=== PATIENT | male | born 1945 | race Caucasian/White ===

== ENCOUNTER 2019-01-24 06:11 | Inpatient (IN) ==
[2019-01-24] MEDS ORDERED: ASPIRIN 81 MG TAB.CHEW CHEWED ONE (06:34)
[2019-01-24] MEDS ORDERED: 0.9 % SODIUM CHLORIDE 500 ML IV ONE (06:34)
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
[2019-01-24 07:52] LABS: Basophils # (Auto) 0 K/mcL (0.0-0.3); Basophils % (Auto) 0.5 % (0.0-2.0); Eosinophils # (Auto) 0.7 K/mcL (0.0-0.7); Eosinophils % (Auto) 9.4 % (0.0-7.0); Granulocytes % (Auto) 66.3 % (38.0-78.0); Hematocrit 25.6 % (41.0-55.0); Hemoglobin 8.5 g/dL (13.5-16.5); Lymphocytes # (Auto) 0.9 K/mcL (1.5-4.8); Lymphocytes % (Auto) 11.5 % (15.5-49.0); Mean Cell Volume 86.1 fL (80.0-100.0); Mean Corpuscular HGB Conc 33.2 g/dL (31.0-36.0); Mean Platelet Volume 8.3 fL (7.4-10.4); Monocytes # (Auto) 0.9 K/mcL (0.1-0.9); Monocytes % (Auto) 12.3 % (1.0-12.0); Platelet Count 206 K/mcL (140-440); RBC 2.98 M/mcL (4.50-5.90); Red Cell Distribution Width 16.5 % (11.5-14.5); WBC 7.4 K/mcL (4.5-11.0)
--- NOTE | 2019-01-24 08:06 | Cat Scan Report ---
CLINICAL INFORMATION: Dizziness. Presyncope COMPARISON: None. TECHNIQUE: 2.5 mm helical slices were obtained in the skull base to vertex. Following reconstruction, axial reformatted images were reviewed at bone and parenchymal windows. The exam was performed using radiation dose optimization techniques including, but not limited to, automated exposure control, adjustment of the mA and/or kV according to patient size and use of iterative reconstruction technique. FINDINGS: The ventricles, sulci, fissures, and cisterns are symmetrically enlarged compatible with mild age-related atrophy.. No extra-axial fluid collections are identified. Mild patchy chronic ischemic changes noted in the frontal white matter with a few remote lacunar infarcts in the left basal ganglia. There is no evidence of hemorrhage, mass effect, or edema. Bone windows show no osseous abnormality. IMPRESSION: Mild atrophy and patchy chronic ischemic changes in the deep cerebral white matter with a few remote lacunar infarcts in the left basal ganglia. No intracerebral hemorrhage or other acute finding Interpreted and Authenticated by: Johnie Lawson 01/24/19
--- NOTE | 2019-01-24 08:07 | XRay Report ---
CLINICAL INFORMATION: Chest Pain COMPARISON: None. FINDINGS: The heart is mildly enlarged, but unchanged. Sternotomy again noted. Mediastinum and pulmonary vessels are unremarkable. The lungs are clear. No effusions. IMPRESSION: Mild cardiomegaly - stable. No acute disease Interpreted and Authenticated by: Johnie Lawson 01/24/19
[2019-01-24 08:14] LABS: INR 1.5 (0.9-1.1); Prothrombin Time 17.7 sec (11.9-14.5); proBNP 387.4 pg/ml (0-125)
[2019-01-24 08:20] LABS: ALT/SGPT 19 U/l (0-40); AST/SGOT 16 U/l (0-37); Albumin 4.2 gm/dL (3.2-5.2); Albumin/Globulin Ratio 1.7 (1.0-2.3); Alkaline Phosphatase 44 U/L (39-117); Bilirubin,Total 0.3 mg/dL (0.0-1.0); Blood Urea Nitrogen 25 mg/dl (8-23); Calcium 9.6 mg/dl (8.6-10.4); Carbon Dioxide 29 mmol/L (22-30); Chloride 102 mmol/L (96-108); Creatine Kinase 52 IU/L (24-195); Globulin 2.5 gm/dL (2.2-3.7); Glomerular Filtration Rate 31; Glucose 93 mg/dL (70-105)
[2019-01-24] MEDS ORDERED: 0.9 % SODIUM CHLORIDE 1,000 ML IV ONE (08:48)
--- NOTE | 2019-01-24 10:36 | Cat Scan Report ---
CLINICAL INFORMATION: Left lower quadrant. Possible GI bleed COMPARISON: None. TECHNIQUE: 0.625 mm helical slices were obtained from the mid heart through the subtrochanteric regions. Following reconstruction, 2.5 mm sagittal, coronal and axial reformatted images were processed and reviewed at bone and soft tissue windows.The exam was performed using radiation dose optimization techniques including, but not limited to, automated exposure control, adjustment of the mA and/or kV according to patient size and use of iterative reconstruction technique. FINDINGS: Heart is mildly enlarged and there is calcific plaque in the visualized coronary arteries. There is also calcification in the aortic valve . Minimal scattered scarring and/or atelectasis seen in both lung bases. There are no effusions. Abdominal images show the noncontrasted liver is unremarkable. There is a 8 mm stone in the gallbladder neck, however the gallbladder is otherwise normal with no evidence of wall thickening or pericholecystic fluid to suggest cholecystitis. Common bile duct normal caliber CBD is 5 mm. There is a 10 mm cyst inferior pole left kidney - the remaining noncontrasted kidneys are are unremarkable. The noncontrasted spleen and pancreas and aorta are normal. No free air, free fluid or adenopathy. Pelvic images show TURP defect in the prostatic urethra region of the prostate. The urinary bladder and seminal vesicles are otherwise normal. There are 4-5 calcifications the mesenteric cavity in the anterior midabdomen ranging up to 15 mm likely calcified granulomas. Small paraumbilical hernia spans 2.3 cm consisting only of mesenteric fat. Few sigmoid diverticuli noted, but no evidence of diverticulitis. The stomach, small bowel, appendix and large bowel are, otherwise, normal. There is no cause identified for blood loss source. Bone windows show no osseous abnormality. IMPRESSION: 1. 8 mm stone in the gallbladder neck. Gallbladder and bile ducts are, otherwise, normal. 2. Sigmoid diverticulosis but no CT evidence for diverticulitis. The remainder of the GI tract is unremarkable. No cause identified for GI blood loss on this noncontrasted study. 3. Small paraumbilical hernia containing only mesenteric fat Interpreted and Authenticated by: Johnie Lawson 01/24/19
--- NOTE | 2019-01-24 10:53 | Emergency Department Note ---
Abdominal Pain HPI - General Chief Complaint: Chest Pain Stated Complaint: chest pain Time Seen by Provider: 01/24/19 06:33 Source: patient, family Mode of arrival: ambulatory Limitations: no limitations, language barrier - Related Data Home Medications Medication Instructions Recorded Confirmed aspirin 81 mg tablet,delayed 81 mg PO QDAY 01/13/15 01/23/19 release lisinopril 40 mg tablet 20 mg PO HS tab 01/13/15 01/23/19 nitroglycerin 0.4 mg sublingual 0.4 mg SUBLINGUAL Q5-15MIN PRN 01/13/15 01/23/19 tablet rosuvastatin 20 mg tablet 10 mg PO HS 01/13/15 01/23/19 ALPRAZolam [Xanax] 0.5 mg PO DAILYP PRN 07/09/17 01/23/19 Albuterol Sulfate [Ventolin] 2.5 mg NEB Q4HP PRN 07/09/17 01/23/19 DULoxetine [Cymbalta] 60 mg PO HS 07/09/17 01/23/19 Insulin Aspart [Novolog] 12 unit SQ TID 07/09/17 01/23/19 Insulin Detemir [Levemir] 48 unit SQ BID 07/09/17 01/23/19 amLODIPine [Norvasc] 10 mg PO DAILY 07/09/17 01/23/19 metFORMIN [Glucophage] 1,000 mg PO BIDCC 07/09/17 01/23/19 Amoxicillin 500 mg PO Q6H PRN 06/05/18 01/23/19 acetaminophen 325 mg tablet 325 mg PO Q6H PRN 11/05/18 01/23/19 cholecalciferol (vitamin D3) 5,000 5,000 unit PO QDAY 11/05/18 01/23/19 unit capsule gabapentin 300 mg capsule See Rx Instructions PO HS 11/05/18 01/23/19 ketaconazole 2% kilo shampoo .ROUTE 11/05/18 01/23/19 ointment compound TOPICAL 11/05/18 01/23/19 omeprazole 20 mg capsule,delayed 40 mg PO HS cap 11/05/18 01/23/19 release oxybutynin chloride 10 mg See Rx Instructions PO DAILY 11/05/18 01/23/19 tablet,extended release 24 hr oxymetazoline 0.05 % nasal spray 2 spray INTRANASAL Q12H PRN 11/05/18 01/23/19 potassium chloride 10 mEq See Rx Instructions PO QDAY cap 11/05/18 01/23/19 capsule,extended release sen-sen ( licorice Sucrets) PO 11/05/18 01/23/19 canagliflozin 100 mg tablet 100 mg PO QAM 01/23/19 01/23/19 furosemide 40 mg tablet See Rx Instructions PO .COMPLEX 01/23/19 01/23/19 tab isosorbide mononitrate 60 mg 60 mg PO QAM tab 01/23/19 01/23/19 tablet,extended release 24 hr metoprolol succinate 50 mg 100 mg PO QHS tab 01/23/19 01/23/19 tablet,extended release 24 hr rivaroxaban 20 mg tablet 20 mg PO QPM 01/23/19 01/23/19 Previous Rx's Medication Instructions Recorded tamsulosin 0.4 mg capsule 0.4 mg PO QDAY 30 Days #30 cap 02/04/15 Allergies Allergy/AdvReac Type Severity Reaction Status Date / Time prasugrel [From Effient] Allergy Intermediate Nose Bleed Verified 01/24/19 06:16 clopidogrel [From PLAVIX] Allergy Unknown HIVES Verified 01/24/19 06:16 niacin [NIACIN] AdvReac Unknown RASH, Verified 01/24/19 06:16 HIVES WITH HIGH DOSES Abdominal Pain PMH - Social History Smoking status: Former smoker Physical Exam Limitations: no limitations, language barrier Course - Reevaluation(s) Reevaluation #1: Patient initially seen by Dr. Muñoz. The. Please see his history and physical to suffice as documentation for H&P. Further course in the ED, he was started on IV fluids up. 20 studies reviewed. His hemoglobin is 8.5 which is down from 12 a few months ago. His chemistry panel is also showing elevated BOM and creatinine up. His abdominal bloating is chronic, but he was scheduled for a CT scan of the abdomen next week and we did today and the fact that he does have abdominal pain and it turns out he does have a stone, which seems to be lodged in the gallbladder neck up. He is not tender in this area, his white count is normal, he has had several loose stools in the last couple of days and I believe they have been more dark. I discussed this with Dr. Ramirez as well as Dr. Hull and at this point, we will have to admit him for GI bleed. Vital Signs Temperature 98.2 F 01/24/19 06:12 Pulse Rate 56 L 01/24/19 06:12 Respiratory Rate 16 01/24/19 06:12 Blood Pressure 140/72 01/24/19 06:12 Pulse Oximetry (%) 100 01/24/19 06:12 Temperature 98.2 F 01/24/19 06:12 Pulse Rate 58 L 01/24/19 10:45 Respiratory Rate 19 01/24/19 10:45 Blood Pressure 145/72 01/24/19 10:45 Pulse Oximetry (%) 99 01/24/19 10:45 Abdominal Pain - MDM Narrative Medical decision making narrative: GI bleeding - Lab Data Lab results reviewed: Yes I reviewed the patient's lab results. Result diagrams: 01/24/19 06:59 01/24/19 06:59 Lab Results 01/24/19 01/24/19 01/24/19 Range/Units 06:59 06:59 06:59 WBC 7.4 (4.5-11.0) K/mcL RBC 2.98 L (4.50-5.90) M/mcL Hgb 8.5 L (13.5-16.5) g/dL Hct 25.6 L (41.0-55.0) % MCV 86.1 (80.0-100.0) fL MCH 28.6 (26.0-34.0) pg MCHC 33.2 (31.0-36.0) g/dL RDW 16.5 H (11.5-14.5) % Plt Count 206 (140-440) K/mcL MPV 8.3 (7.4-10.4) fL Gran % 66.3 (38.0-78.0) % Lymph % (Auto) 11.5 L (15.5-49.0) % [place] % (Auto) 12.3 H (1.0-12.0) % Eos % (Auto) 9.4 H (0.0-7.0) % Baso % (Auto) 0.5 (0.0-2.0) % Gran # 4.9 (1.8-8.0) K/mcL Lymph # (Auto) 0.9 L (1.5-4.8) K/mcL [place] # (Auto) 0.9 (0.1-0.9) K/mcL Eos # (Auto) 0.7 (0.0-0.7) K/mcL Baso # (Auto) 0 (0.0-0.3) K/mcL PT 17.7 H (11.9-14.5) sec INR 1.5 H (0.9-1.1) D-Dimer < 0.27 (0.00-0.40) ug/ml Sodium 144 (133-145) mmol/L Potassium 3.6 (3.3-5.1) mmol/L Chloride 102 (96-108) mmol/L Carbon Dioxide 29 (22-30) mmol/L Anion Gap 13.0 (8-16) BUN 25 H (8-23) mg/dl Creatinine 2.1 H (0.7-1.2) mg/dl GFR Calculation 31 Glucose 93 (70-105) mg/dL Calcium 9.6 (8.6-10.4) mg/dl Total Bilirubin 0.3 (0.0-1.0) mg/dL AST 16 (0-37) U/l ALT 19 (0-40) U/l Alkaline Phosphatase 44 (39-117) U/L Total Creatine Kinase 52 (24-195) IU/L Troponin T (0-0.03) ng/ml NT-Pro-B Natriuret Pep 387.4 H (0-125) pg/ml Total Protein 6.7 (5.9-8.4) gm/dL Albumin 4.2 (3.2-5.2) gm/dL Globulin 2.5 (2.2-3.7) gm/dL Albumin/Globulin Ratio 1.7 (1.0-2.3) Lipase 17 (7-60) U/L 01/24/19 Range/Units 06:59 WBC (4.5-11.0) K/mcL RBC (4.50-5.90) M/mcL Hgb (13.5-16.5) g/dL Hct (41.0-55.0) % MCV (80.0-100.0) fL MCH (26.0-34.0) pg MCHC (31.0-36.0) g/dL RDW (11.5-14.5) % Plt Count (140-440) K/mcL MPV (7.4-10.4) fL Gran % (38.0-78.0) % Lymph % (Auto) (15.5-49.0) % [place] % (Auto) (1.0-12.0) % Eos % (Auto) (0.0-7.0) % Baso % (Auto) (0.0-2.0) % Gran # (1.8-8.0) K/mcL Lymph # (Auto) (1.5-4.8) K/mcL [place] # (Auto) (0.1-0.9) K/mcL Eos # (Auto) (0.0-0.7) K/mcL Baso # (Auto) (0.0-0.3) K/mcL PT (11.9-14.5) sec INR (0.9-1.1) D-Dimer (0.00-0.40) ug/ml Sodium (133-145) mmol/L Potassium (3.3-5.1) mmol/L Chloride (96-108) mmol/L Carbon Dioxide (22-30) mmol/L Anion Gap (8-16) BUN (8-23) mg/dl Creatinine (0.7-1.2) mg/dl GFR Calculation Glucose (70-105) mg/dL Calcium (8.6-10.4) mg/dl Total Bilirubin (0.0-1.0) mg/dL AST (0-37) U/l ALT (0-40) U/l Alkaline Phosphatase (39-117) U/L Total Creatine Kinase (24-195) IU/L Troponin T < 0.01 (0-0.03) ng/ml NT-Pro-B Natriuret Pep (0-125) pg/ml Total Protein (5.9-8.4) gm/dL Albumin (3.2-5.2) gm/dL Globulin (2.2-3.7) gm/dL Albumin/Globulin Ratio (1.0-2.3) Lipase (7-60) U/L - Radiology Data Radiology results reviewed: Yes I reviewed the patient's radiology results. Disposition Pt seen by FLOORWORKER DISTRIBUTOR/PA only: No Clinical Impression: Lower GI bleed, Atypical chest pain Acute renal failure Qualifiers: Acute renal failure type: unspecified Qualified Code(s): N17.9 - Acute kidney failure, unspecified Disposition: Xfer As Inpt ([facility]) Condition: Fair Referrals: Maryanne Brown ARNP [Primary Care Provider] -
--- NOTE | 2019-01-24 10:53 | Internal Med History&Physical ---
Medical - H&P: HPI Patient information: Note initiated : 01/24/19 at 10:50 am Service Date, if different from initiated Date: [] Patient: Neftaly Poon 73 y/o M admitted on for chest pain. Chief Complaint: [] Medical - H&P: Meds Home Medications Medication Instructions Recorded Confirmed Type aspirin 81 mg tablet,delayed 81 mg PO QDAY 01/13/15 01/24/19 History release nitroglycerin 0.4 mg sublingual 0.4 mg SUBLINGUAL Q5-15MIN PRN 01/13/15 01/24/19 History tablet rosuvastatin 20 mg tablet 10 mg PO HS 01/13/15 01/24/19 History tamsulosin 0.4 mg capsule 0.4 mg PO QDAY 30 Days #30 cap 02/04/15 01/24/19 Rx ALPRAZolam [Xanax] 0.5 mg PO DAILYP PRN 07/09/17 01/24/19 History Albuterol Sulfate [Ventolin] 2.5 mg NEB Q4HP PRN 07/09/17 01/24/19 History DULoxetine [Cymbalta] 60 mg PO HS 07/09/17 01/24/19 History Insulin Aspart [Novolog] 12 unit SQ TID 07/09/17 01/24/19 History Insulin Detemir [Levemir] 48 unit SQ BID 07/09/17 01/24/19 History amLODIPine [Norvasc] 10 mg PO DAILY 07/09/17 01/24/19 History metFORMIN [Glucophage] 1,000 mg PO BIDCC 07/09/17 01/24/19 History acetaminophen 325 mg tablet 325 mg PO Q6H PRN 11/05/18 01/24/19 History cholecalciferol (vitamin D3) 5,000 5,000 unit PO QDAY 11/05/18 01/24/19 History unit capsule gabapentin 300 mg capsule See Rx Instructions PO HS 11/05/18 01/24/19 History ketaconazole 2% kilo shampoo .ROUTE 11/05/18 01/23/19 History ointment compound TOPICAL 11/05/18 01/23/19 History oxybutynin chloride 10 mg See Rx Instructions PO DAILY 11/05/18 01/24/19 History tablet,extended release 24 hr oxymetazoline 0.05 % nasal spray 2 spray INTRANASAL Q12H PRN 11/05/18 01/24/19 History potassium chloride 10 mEq See Rx Instructions PO QDAY cap 11/05/18 01/24/19 History capsule,extended release sen-sen ( licorice Sucrets) PO 11/05/18 01/23/19 History canagliflozin 100 mg tablet 100 mg PO QAM 01/23/19 01/24/19 History furosemide 40 mg tablet See Rx Instructions PO .COMPLEX 01/23/19 01/24/19 History tab isosorbide mononitrate 60 mg 60 mg PO QAM tab 01/23/19 01/24/19 History tablet,extended release 24 hr metoprolol succinate 50 mg 100 mg PO QHS tab 01/23/19 01/24/19 History tablet,extended release 24 hr rivaroxaban 20 mg tablet 20 mg PO QPM 01/23/19 01/24/19 History Lactase [Lactaid] 1 tab PO TIDP PRN 01/24/19 01/24/19 History Lisinopril [Zestril] 20 mg PO HS 01/24/19 01/24/19 History Pantoprazole [Protonix] 40 mg PO QAMAC 01/24/19 01/24/19 History Allergies Allergy/AdvReac Type Severity Reaction Status Date / Time clopidogrel [From PLAVIX] Allergy Mild HIVES Verified 01/24/19 14:52 prasugrel [From Effient] AdvReac Intermediate Nose Bleed Verified 01/24/19 14:52 niacin [NIACIN] AdvReac Mild RASH, Verified 01/24/19 14:52 HIVES WITH HIGH DOSES Medical - H&P: Exam - Constitutional Vitals: Temp Pulse Resp BP Pulse Ox 98.2 F 58 L 19 145/72 99 01/24/19 06:12 01/24/19 10:45 01/24/19 10:45 01/24/19 10:45 01/24/19 10:45 Medical - H&P: Reslt - Labs CBC & Chem 7: 01/24/19 16:04 01/24/19 06:59 Labs: Short CBC 01/24/19 Range/Units 06:59 WBC 7.4 (4.5-11.0) K/mcL Hgb 8.5 L (13.5-16.5) g/dL Hct 25.6 L (41.0-55.0) % Plt Count 206 (140-440) K/mcL BMP 01/24/19 06:59 Sodium 144 Potassium 3.6 Chloride 102 Carbon Dioxide 29 BUN 25 H Creatinine 2.1 H Glucose 93 Calcium 9.6 Cardiac Enzymes 01/24/19 01/24/19 Range/Units 06:59 06:59 Total Creatine Kinase 52 (24-195) IU/L Troponin T < 0.01 (0-0.03) ng/ml Liver Function 01/24/19 Range/Units 06:59 Total Bilirubin 0.3 (0.0-1.0) mg/dL AST 16 (0-37) U/l ALT 19 (0-40) U/l Alkaline Phosphatase 44 (39-117) U/L Albumin 4.2 (3.2-5.2) gm/dL Medical - H&P: A/P (1) GI bleed Current visit: Yes Status: Acute
[2019-01-24] MEDS ORDERED: NOREPINEPHRINE BITARTRATE 16 MG in 0.9 % SODIUM CHLORIDE 234 ML IV SCH (14:38)
[2019-01-24] MEDS ORDERED: DEXTROSE 31 GM ORAL.SUSP PO PRN (14:38)
[2019-01-24] MEDS ORDERED: DEXTROSE 50% 50 ML VIAL IV PRN (14:38)
[2019-01-24] MEDS ORDERED: ONDANSETRON 4 MG/2 ML VIAL IV PRN (14:38)
[2019-01-24] MEDS ORDERED: POTASSIUM CHLORIDE 20 MEQ PACKET PO PRN (14:38)
[2019-01-24] MEDS ORDERED: MAGNESIUM SULFATE 2 GM/50 ML BAG IV PRN (14:38)
[2019-01-24] MEDS ORDERED: 0.9 % SODIUM CHLORIDE 250 ML IV SCH (14:38)
[2019-01-24] MEDS ORDERED: ESOMEPRAZOLE 80 MG in 0.9 % SODIUM CHLORIDE 100 ML IV SCH ×2 (14:38→15:30)
[2019-01-24] MEDS ORDERED: ESOMEPRAZOLE 80 MG in 0.9 % SODIUM CHLORIDE 50 ML IV SCH (14:38)
[2019-01-24] MEDS ORDERED: ACETAMINOPHEN 325 MG TABLET PO PRN (14:38)
--- NOTE | 2019-01-24 15:39 | Internal Medicine Consult Note ---
Medical - CN: HPI - Data of Consult Patient: new to practice Consult date: 01/24/19 Primary Care Provider: Maryanne Brown - Consult Narrative Reason for consult: GI bleed History of present illness: Mr. Poon is a 73 year old diabetic with peripheral neuropathy and nephropathy, coronary artery disease and sleep apnea on chronic anticoagulants and ASA who presented with paresthesias and anemia. For the last 3 weeks, he has experienced progressive fatigue, weakness and lightheadedness. He has seen dark stool, but is quick to clarify he is not sure it is black or tarry. He denies any NSAID use. He awoke this morning with right leg pain. When changing positions did not help, he went to sit in his recliner and developed left sided paraesthesias head-to-toe and in the right forearm. He became concerned that he might be having a stroke and his brought him to the ED for further evaluation, where he was found to have a 4point drop in his hgb (currrently 8.5). FOBT was positive. He has an 11 month history of intermittent attacks of RUQ abdominal pain that radiate across his upper abdomen. He has had multiple investigations including EGD in May 2018, US and at least two HIDA scans that failed to reveal an etiology of his pain. CT today shows an 8mm gallstone in the neck of the gallbladder. Pain is not entirely classic for cholelithiasis. He now is having constant generalized abdominal pain with bloating. There is localized discomfort under his costal margins and at his iliac crest bilaterally. He is on PPI twice daily due to chronic abdominal pain. I clarified his history with hepatobiliary surgeon, Dr. Angeli Kim, today by phone who said she was considering elective cholecystectomy in this patient. EGD in May 2018 showed no cause of symptoms, but he had a duodenal adenoma, which was removed. His last colonoscopy in 04/2016 apparently revealed polyps. CC: Theodore Panda - Constitutional Constitutional: Present: as per HPI, fatigue, stops breathing during sleep. Absent: weight gain, weight loss - Gastrointestinal Gastrointestinal: Present: abdominal pain, constipation, diarrhea Medical - CN: PMH Medical history: Diabetes with neuropathy, nephropathy, artificial aortic valve, coronary artery disease with stents, chronic anticoagulation, obstructive sleep apnea, hypertension, BPH Surgical history: Coronary stents, aortic valve, TURP, neuroma foot, tonsillectomy, bilateral shoulder surgery, hiatal hernia repair Family history: reviewed and not pertinent Pertinent family history: Parents both had heart disease Social history: , retired. Former smoker. No alcohol or substance use. Functional capacity: independent ambulation Smoking status: Former smoker Medical - CN: Meds Home Medications Medication Instructions Recorded Confirmed Type aspirin 81 mg tablet,delayed 81 mg PO QDAY 01/13/15 01/24/19 History release lisinopril 40 mg tablet 20 mg PO HS tab 01/13/15 01/24/19 History nitroglycerin 0.4 mg sublingual 0.4 mg SUBLINGUAL Q5-15MIN PRN 01/13/15 01/24/19 History tablet rosuvastatin 20 mg tablet 10 mg PO HS 01/13/15 01/24/19 History tamsulosin 0.4 mg capsule 0.4 mg PO QDAY 30 Days #30 cap 02/04/15 01/24/19 Rx ALPRAZolam [Xanax] 0.5 mg PO DAILYP PRN 07/09/17 01/24/19 History Albuterol Sulfate [Ventolin] 2.5 mg NEB Q4HP PRN 07/09/17 01/24/19 History DULoxetine [Cymbalta] 60 mg PO HS 07/09/17 01/24/19 History Insulin Aspart [Novolog] 12 unit SQ TID 07/09/17 01/24/19 History Insulin Detemir [Levemir] 48 unit SQ BID 07/09/17 01/24/19 History amLODIPine [Norvasc] 10 mg PO DAILY 07/09/17 01/24/19 History metFORMIN [Glucophage] 1,000 mg PO BIDCC 07/09/17 01/24/19 History acetaminophen 325 mg tablet 325 mg PO Q6H PRN 11/05/18 01/24/19 History cholecalciferol (vitamin D3) 5,000 5,000 unit PO QDAY 11/05/18 01/24/19 History unit capsule gabapentin 300 mg capsule See Rx Instructions PO HS 11/05/18 01/24/19 History ketaconazole 2% kilo shampoo .ROUTE 11/05/18 01/23/19 History ointment compound TOPICAL 11/05/18 01/23/19 History oxybutynin chloride 10 mg See Rx Instructions PO DAILY 11/05/18 01/24/19 History tablet,extended release 24 hr oxymetazoline 0.05 % nasal spray 2 spray INTRANASAL Q12H PRN 11/05/18 01/24/19 History potassium chloride 10 mEq See Rx Instructions PO QDAY cap 11/05/18 01/24/19 History capsule,extended release sen-sen ( licorice Sucrets) PO 11/05/18 01/23/19 History canagliflozin 100 mg tablet 100 mg PO QAM 01/23/19 01/24/19 History furosemide 40 mg tablet See Rx Instructions PO .COMPLEX 01/23/19 01/24/19 History tab isosorbide mononitrate 60 mg 60 mg PO QAM tab 01/23/19 01/24/19 History tablet,extended release 24 hr metoprolol succinate 50 mg 100 mg PO QHS tab 01/23/19 01/24/19 History tablet,extended release 24 hr rivaroxaban 20 mg tablet 20 mg PO QPM 01/23/19 01/24/19 History Pantoprazole [Protonix] 40 mg PO QAMAC 01/24/19 01/24/19 History Allergies Allergy/AdvReac Type Severity Reaction Status Date / Time clopidogrel [From PLAVIX] Allergy Mild HIVES Verified 01/24/19 14:52 prasugrel [From Effient] AdvReac Intermediate Nose Bleed Verified 01/24/19 14:52 niacin [NIACIN] AdvReac Mild RASH, Verified 01/24/19 14:52 HIVES WITH HIGH DOSES Medical - CN: Exam - Constitutional Vitals: Temp Pulse Resp BP Pulse Ox 97.8 F 53 L 18 145/60 96 01/24/19 14:38 01/24/19 14:38 01/24/19 14:38 01/24/19 14:38 01/24/19 14:38 General appearance: cooperative, obese - Head Head exam: Present: atraumatic, normal inspection - ENT ENT exam: Present: normal exam - Neck Neck exam: Present: normal inspection. Absent: lymphadenopathy, thyromegaly - Respiratory Respiratory exam: Present: normal respiratory exam, CTAB - Cardiovascular Cardiovascular exam: Present: normal rate and rhythm. Absent: diastolic murmur, systolic murmur - GI/Abdominal GI/Abdominal exam: Present: normal bowel sounds, soft. Absent: hernia, mass, organomegaly Additional comments: Large rectus diastasis with reducible umbilical hernia. Carnett's sign is negative. - Extremities Exam Extremities exam: Present: pedal edema, Foot pink and warm - Neurological Exam Neurological exam: Present: alert, oriented X3 - Psychiatric Psychiatric exam: Present: normal affect, normal mood - Skin Skin exam: Present: dry, normal color, warm Medical - CN: Result - Labs CBC & Chem 7: 01/24/19 06:59 01/24/19 06:59 Labs: Short CBC 01/24/19 Range/Units 06:59 WBC 7.4 (4.5-11.0) K/mcL Hgb 8.5 L (13.5-16.5) g/dL Hct 25.6 L (41.0-55.0) % Plt Count 206 (140-440) K/mcL BMP 01/24/19 06:59 Sodium 144 Potassium 3.6 Chloride 102 Carbon Dioxide 29 BUN 25 H Creatinine 2.1 H Glucose 93 Calcium 9.6 Cardiac Enzymes 01/24/19 01/24/19 Range/Units 06:59 06:59 Total Creatine Kinase 52 (24-195) IU/L Troponin T < 0.01 (0-0.03) ng/ml Liver Function 01/24/19 Range/Units 06:59 Total Bilirubin 0.3 (0.0-1.0) mg/dL AST 16 (0-37) U/l ALT 19 (0-40) U/l Alkaline Phosphatase 44 (39-117) U/L Albumin 4.2 (3.2-5.2) gm/dL Medical - CN: A/P (1) Lower GI bleed Status: Acute Assessment and plan: I reviewed his case with Dr. Torres. In light of his FOBT and "dark stool", we will arrange for EGD today. If no cause of bleeding identified, we will arrange for colonoscopy tomorrow. (2) Cholelithiasis Status: Acute Assessment and plan: I shared the findings with Dr. Kim during our phone conversation today. She will see the patient in clinic in February. I discussed with the patient that some of his abdominal pain may be related to his large rectus diastasis, particularly the localized discomfort under his costal margins.
[2019-01-24] MEDS: INSULIN LISPRO 1 UNIT/0.01 ML UNIT SQ SCH ×3 (15:45→22:03)
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
--- NOTE | 2019-01-24 16:29 | Ultrasound Report ---
CLINICAL INFORMATION: ROBERTO COMPARISON: Abdomen and pelvic CT 01/24/2019 FINDINGS: Both kidneys are normal in size, position, configuration and echotexture: The right is 12.9 x 5.5 cm and the right is 12.9 x 5.6 cm. The 1.4 cm cyst is noted in the inferior pole of the left kidney - this previously seen. There are no stones hydronephrosis or solid lesions. Arterial blood flow is normal on color Doppler to both kidneys Small amount of urine seen in the urinary bladder which is grossly normal IMPRESSION: 1.4 cm simple cyst - inferior pole the left kidney. Both kidneys are, otherwise, normal Interpreted and Authenticated by: Johnie Lawson 01/24/19
[2019-01-24] MEDS ORDERED: KETAMINE HCL 50 MG/ML ML IV PRN (16:31)
[2019-01-24] MEDS ORDERED: MIDAZOLAM 2 MG/2 ML VIAL IV SCH (16:45)
[2019-01-24] MEDS ORDERED: PROPOFOL 200 MG/20 ML VIAL IV SCH (16:45)
[2019-01-24] MEDS ORDERED: PROPOFOL 20 ML IV ONE (16:50)
[2019-01-24] MEDS ORDERED: MIDAZOLAM 2 MG/2 ML VIAL ONE (16:50)
[2019-01-24] MEDS: 0.9 % SODIUM CHLORIDE 10 ML SYRINGE IV SCH ×2 (17:02→22:03)
[2019-01-24] MEDS: 0.9 % SODIUM CHLORIDE 1,000 ML IV SCH (17:41)
[2019-01-24] MEDS ORDERED: PEG 3350/NA SULF,BICARB,CL/KCL 4,000 ML ORAL.SOL PO SCH (17:45)
[2019-01-24] MEDS ORDERED: SENNOSIDES 8.8 MG/5 ML ML PT SCH (17:45)
[2019-01-24] MEDS ORDERED: BISACODYL 5 MG TABLET PO SCH (17:45)
[2019-01-24] MEDS ORDERED: BETHANECHOL 10 MG TABLET PO SCH (17:45)
[2019-01-24] MEDS ORDERED: MAGNESIUM CITRATE 300 ML ORAL.SOL PO SCH (17:45)
[2019-01-24] MEDS ORDERED: BISACODYL 10 MG SUPP.RECT PR SCH (17:45)
[2019-01-24] MEDS: OMEPRAZOLE 20 MG CAPSULE PO SCH (19:11)
[2019-01-24] MEDS: SENNOSIDES/DOCUSATE SODIUM 1 TAB TABLET PO SCH (19:12)
[2019-01-24] MEDS: DOCUSATE SODIUM 100 MG CAPSULE PO SCH (19:12)
[2019-01-25] MEDS: 0.9 % SODIUM CHLORIDE 10 ML SYRINGE IV SCH ×4 (05:07→22:04)
[2019-01-25 05:36] LABS: Hematocrit 24.9 % (41.0-55.0); Hemoglobin 8.1 g/dL (13.5-16.5); Mean Cell Volume 86.7 fL (80.0-100.0); Mean Corpuscular HGB Conc 32.5 g/dL (31.0-36.0); Mean Platelet Volume 8.1 fL (7.4-10.4); Platelet Count 202 K/mcL (140-440); RBC 2.87 M/mcL (4.50-5.90); Red Cell Distribution Width 16.2 % (11.5-14.5)
[2019-01-25 06:02] LABS: ALT/SGPT 21 U/l (0-40); AST/SGOT 20 U/l (0-37); Albumin 3.7 gm/dL (3.2-5.2); Albumin/Globulin Ratio 1.5 (1.0-2.3); Alkaline Phosphatase 46 U/L (39-117); Bilirubin,Direct < 0.2 mg/dL (0.0-0.3); Bilirubin,Total 0.5 mg/dL (0.0-1.0); Calcium 9.1 mg/dl (8.6-10.4); Carbon Dioxide 31 mmol/L (22-30); Chloride 106 mmol/L (96-108); Globulin 2.5 gm/dL (2.2-3.7); Glucose 147 mg/dL (70-105); Lactate Dehydrogenase 203 U/L (94-250); Phosphorous 3.5 mg/dL (2.7-4.5); Triglycerides 229 mg/dl (<150); Uric Acid 7.4 mg/dL (2.5-8.0)
[2019-01-25 06:05] LABS: Blood Urea Nitrogen 18 mg/dl (8-23); Glomerular Filtration Rate 42
[2019-01-25] MEDS: ACETAMINOPHEN 650 MG/65 ML BOTTLE IV PRN ×2 (06:56→14:02)
[2019-01-25] MEDS: INSULIN LISPRO 1 UNIT/0.01 ML UNIT SQ SCH ×6 (07:00→19:50)
[2019-01-25] MEDS: DOCUSATE SODIUM 100 MG CAPSULE PO SCH ×2 (08:39→19:45)
[2019-01-25 08:52] LABS: Anisocytosis 1+ (NONE SEEN); Eosinophils % (Manual) 9 % (0-7); Lymphocytes % 9 % (15-49); Monocytes % (Manual) 10 % (1-12); Myelocytes % 1 % (0-0); Platelet Estimate NORMAL (NORMAL); RBC Morphology ABNORM (NORMAL); Segmented Neutrophils % 71 % (38-78)
[2019-01-25] MEDS ORDERED: PEG 3350/NA SULF,BICARB,CL/KCL 4,000 ML ORAL.SOL PO ONE (09:06)
[2019-01-25] MEDS ORDERED: ALPRAZolam 0.5 MG TABLET PO PRN (11:27)
[2019-01-25] MEDS ORDERED: ALBUTEROL SULFATE 2.5 MG/3 ML NEBULIZER NEB PRN (11:27)
[2019-01-25] MEDS ORDERED: KETOCONAZOLE SHAMPOO TOPICAL PRN (11:27)
--- NOTE | 2019-01-25 11:27 | Internal Med Progress Note ---
Medical - PN: Subj Patient information: Note initiated : 01/25/19 at 11:24 am Service Date, if different from initiated Date: [] Patient: Neftaly Poon a 73 y/o M admitted on 01/24/19 for Chest pain. Chief Complaint: [] Interval history: Mr. Poon is a 73 year old M with a history of [facility]CKD stage III, DM type II, AVR, PAF on anticoagulation. 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 His symptoms lasted for over 6 hours. He searched his symptoms over internet and with concerns of stroke he presents to the ER. Head CT was unremarkable. Patients symptoms fully resolved with NIH 0 on presentation. He has been on aspirin and Xarelto(started 2 weeks ago in anticipation for AVR redo by Dr Brooks cardiology). During work-up he was found to have a hemoglobin 8.5. Significant to presenting complaint patient has been experiencing progressive fatigue and weakness over the last few weeks. in addition c/o generalized abdominal discomfort more pronounced around the epigastric area. He endorses to constipation, intermittent dark melenic stools, fatigue and malaise and decreased effort tolerance. His his symptoms were evaluated in the past without a definite etiology . He currently denies weight changes, alcohol use, NSAID intake or noticing bright red blood per rectum. Subsequently GI was consulted for upper endoscopy in light of significant drop in hemoglobin from a baseline of 13-8.5 on presentation. Creatinine elevated at 2.1 on presentation. Hospitalist service was consulted for admission At the time of evaluation patient is accompanied with his Sakina. He was able to answer most of the question and endorsed to history as above. He denied fever, chills, chest pain, palpitation, lightheadedness dizziness or photophobia. He further denies cough, dysuria. 01/25-patient on PPI drip. No overnight events. Status post EGD. Shows es ophagitis. Now awaiting colonoscopy undergoing prep. MRI brain cannot be performed in light of multiple stents in RCA. Patient complains of numbness and tingling left side of the body. Continue aspirin but hold rivaroxaban until procedure to minimize risk of post procedural biopsy bleeding. Will restart anticoagulation within 24 hours. Abdominal pain/discomfort improved. Hemoglobin 8.1. No indication for transfusion as yet. Creatinine down to 1.6. SRAVANI inhibitor is on hold. Renal ultrasound. No telemetry event junctional rhythm regular. - Constitutional Vitals: Vital Signs Temp Pulse Resp BP Pulse Ox 97.1 F 59 L 18 163/77 94 01/25/19 07:01 01/25/19 11:01 01/25/19 09:01 01/25/19 11:01 01/25/19 11:01 Period Temp Pulse Resp BP Sys/Matos Pulse Ox Last 24 Hr 97.1 F-98.4 F 47-67 10-22 88-171/47-103 91-100 Intake and Output 01/24/19 01/25/19 01/25/19 21:59 05:59 13:59 Intake Total 300 240 65 Output Total 1350 450 Balance -1050 240 -385 Weight 252 lb 9.6 oz Intake & Output: Intake & Output 01/24/19 01/25/19 01/25/19 21:59 05:59 13:59 Intake Total 300 240 65 Output Total 1350 450 Balance -1050 240 -385 Weight 252 lb 9.6 oz Intake: IV 65 Oral 300 240 0 Output: Void Amount 1350 450 Other: Urine Appearance Clear Urine Color Bright Yellow Urine Odor Normal Stool Size Copious Stool Color Brown Stool Consistency Liquid Watery Loose # Voids 1 1 # Bowel Movements 1 General appearance: no acute distress Exam: Complains of right-sided numbness intermittent. No headache, chest pain or palpitation. Nonlabored breathing Nondistended nontender abdomen Minimal lymphedema Medical - PN: Obj Da - Labs CBC & Chem 7: 01/25/19 09:13 01/25/19 03:50 Labs: Abnormal Lab Results 01/25/19 01/25/19 01/25/19 09:13 03:50 03:50 RBC 2.87 L Hgb 8.4 L 8.1 L Hct 24.9 L RDW 16.2 H Lymph % (Auto) [place] % (Auto) Eos % (Auto) Lymph # (Auto) Lymphocytes % 9 L Eosinophils % (Manual) 9 H Myelocytes % 1 H RBC Morphology Abnorm A Anisocytosis 1+ A PT INR Sodium 146 H Carbon Dioxide 31 H BUN Creatinine 1.6 H Glucose 147 H NT-Pro-B Natriuret Pep Triglycerides 229 H 01/25/19 01/24/19 01/24/19 00:05 19:50 16:04 RBC Hgb 8.3 L 8.6 L 8.5 L Hct RDW Lymph % (Auto) [place] % (Auto) Eos % (Auto) Lymph # (Auto) Lymphocytes % Eosinophils % (Manual) Myelocytes % RBC Morphology Anisocytosis PT INR Sodium Carbon Dioxide BUN Creatinine Glucose NT-Pro-B Natriuret Pep Triglycerides 01/24/19 01/24/19 01/24/19 06:59 06:59 06:59 RBC 2.98 L Hgb 8.5 L Hct 25.6 L RDW 16.5 H Lymph % (Auto) 11.5 L [place] % (Auto) 12.3 H Eos % (Auto) 9.4 H Lymph # (Auto) 0.9 L Lymphocytes % Eosinophils % (Manual) Myelocytes % RBC Morphology Anisocytosis PT 17.7 H INR 1.5 H Sodium Carbon Dioxide BUN 25 H Creatinine 2.1 H Glucose NT-Pro-B Natriuret Pep 387.4 H Triglycerides Meds: Medications Acetaminophen (Tylenol) 650 mg PO Q4-6HP PRN; Protocol PRN Reason: Per Pain Protocol/Fever > 101 Dextrose (Dextrose 50%) 0 ml IV UD PRN PRN Reason: Hypoglycemia Diagnostic Test (Pha) (Accu-Chek) 1 each FS ACHS [facility] Last Admin: 01/25/19 06:45 Dose: 1 each Documented by: Docusate Sodium (Colace) 100 mg PO BID [facility] Last Admin: 01/25/19 08:39 Dose: 100 mg Documented by: Glucose (Insta-Glucose) 15 gm PO PRN PRN PRN Reason: Hypoglycemia Sodium Chloride (Sodium Chloride 0.9%) 1,000 mls @ 50 mls/hr IV .Q20H [facility] Stop: 01/27/19 02:37 Last Admin: 01/24/19 17:41 Dose: 50 mls/hr Documented by: Acetaminophen (Ofirmev) 650 mg in 65 mls @ 130 mls/hr IV Q6HP PRN; Protocol PRN Reason: Per Pain Protocol/Fever > 101 Last Infusion: 01/25/19 07:30 Dose: Infused Documented by: Magnesium Sulfate (Magnesium Sulfate) 2 gm in 50 mls @ 50 mls/hr IV UD PRN PRN Reason: MG = or < 1.7 Norepinephrine Bitartrate 16 (mg/ Sodium Chloride) 250 mls @ 9.375 mls/hr IV Q24H [facility]; Protocol Last Admin: 01/24/19 16:59 Dose: Not Given Documented by: Insulin Human Lispro (Humalog) 0 unit SQ ACHS [facility]; Protocol Last Admin: 01/25/19 07:00 Dose: Not Given Documented by: Omeprazole (Prilosec) 40 mg PO BID [facility] Last Admin: 01/24/19 19:11 Dose: 40 mg Documented by: Ondansetron HCl (Zofran) 4 mg IV Q4-6HP PRN; Protocol PRN Reason: Nausea And Vomiting Potassium Chloride (Klor-Con) 40 meq PO DAILYP PRN PRN Reason: K+ < 3.5 Senna/Docusate Sodium (Senna Plus Tablet) 1 tab PO HS [facility] Last Admin: 01/24/19 19:12 Dose: 1 tab Documented by: Sodium Chloride (Saline Flush) 10 ml IV Q8 [facility] Last Admin: 01/25/19 05:07 Dose: Not Given Documented by: Medical - PN: A/P - Time Spent With Patient Total time spent is greater than 50% in coordination of care (as documented) at patient's floor/unit and/or counseling patient: 25 - 35 minutes (1) GI bleed Status: Acute Assessment and plan: * Left-sided numbness-symptoms intermittent, currently on aspirin statin. Not amenable to MRI due to multiple cardiac stents incompatibility.. Head CT unremarkable, anticoagulation Xarelto held until colonoscopy to minimize risk of bleeding. Echocardiogram from 2017 EF 60% without evidence of ASD. Continue statin * GI bleed with melenic stool-status post EGD with esophagitis/hemorrhagic polyp, transition to oral PPI, restart aspirin, colonoscopy pending later today. Ongoing bowel prep * Blood loss anemia hemoglobin stable at 8.4. Continue every 6 H&H monitoring and transfuse if hemoglobin less than 7. * Abdominal pain-progressive over the last few months without identifiable etiology except for cholelithiasis. Patient will follow-up with surgeon Dr. Foreman at [place] in February no evidence of acute process on CT abdomen. * Acute on chronic kidney disease stage III. Managed outpatient by nephrology. Creatinine improved from 2.1-1.6. Negative renal ultrasound. Hold SRAVANI inhibitor's. * DM type II continue sliding-scale insulin/CC diet * History of CAD status post multiple PCI/stenting-continue isosorbide/stat in/beta-jennifer, aspirin. Hold rivaroxaban/SRAVANI inhibitor * History of hypertension -restart antihypertensives * Anxiety disorder continue alprazolam/duloxetine * Chronic lymphedema restart home dose furosemide * History of asthma continue bronchodilators * Neuropathy continue gabapentin * History of BPH continue Flomax * Full code * Prophylaxis SCDs Plan * Colonoscopy today * Restart aspirin * Transition to oral PPI * Prior medical condition management on home meds except for antihypertensives which will be held until patient stabilizes Current Visit: Yes Medical - PN: Qual - VTE Deep Vein Thrombosis/Pulmonary Embolism Present on Admission: No
[2019-01-25] MEDS ORDERED: ASPIRIN 81 MG TAB.CHEW CHEWED ONE (12:15)
[2019-01-25] MEDS: 0.9 % SODIUM CHLORIDE 1,000 ML IV SCH (13:03)
--- NOTE | 2019-01-25 13:12 | Event Note ---
I was asked to see the patient for ROBERTO on CKD. At the time of my visit 01/24/2019 the patient was off the floor for an endoscopy. I briefly discussed with the patient's and told her Mr. Poon will need nephrology follow up. Dr. Cheung will be covering the renal service this weekend.
[2019-01-25] MEDS ORDERED: KETAMINE HCL 50 MG/ML ML IV PRN (15:12)
[2019-01-25] MEDS ORDERED: MIDAZOLAM 2 MG/2 ML VIAL IV SCH (15:15)
[2019-01-25] MEDS ORDERED: PROPOFOL 200 MG/20 ML VIAL IV SCH (15:15)
[2019-01-25] MEDS ORDERED: PROPOFOL 20 ML IV ONE ×2 (15:33→15:54)
[2019-01-25] MEDS ORDERED: MIDAZOLAM 2 MG/2 ML VIAL ONE (15:33)
--- NOTE | 2019-01-25 16:28 | Colonoscopy Procedure Note ---
Colonoscopy Procedure Notes - Procedure Information Patient information: Note initiated : 01/25/19 at 4:26 pm Service Date: 01/25/19 Patient: Neftaly Poon 73 y/o M admitted on 01/24/19 for Anemia. Pre-op diagnosis general: Anemia. Post-op diagnosis general: Colonic polyp. Angiodysplasia. Procedure: Colonoscopy Procedure narrative: The procedure, alternatives and risks were discussed with the patient and the jose watt's questions were answered. The patient gave verbal consent to have DONNIE Pena, participate in the procedure. With endoscopist administered intravenous sedation, the Olympus colonoscope was introduced into the rectum and advanced to the cecum. Ileocecal valve was identified, intubated, and several centimeters of the terminal ileum were examined. An angiodysplasia was seen in the ascending colon. It was not actively bleeding. It was ablated with APC. Colonic polyps were seen in the ascending colon ; polyp was removed with a snare. It was retrieved for histological examination. Diverticula appear uncomplicated. Assessment: Colonic polyp. Angiodysplasia. The patient is at risk for significant GI bleeding following ablation of angiodysplasia for up to 3 weeks.
--- NOTE | 2019-01-25 16:32 | EGD Procedure Note ---
EGD Procedure Notes - Procedure Information Patient information: Note initiated : 01/25/19 at 4:29 pm Service Date: 01/24/19 Patient: Neftaly Poon 73 y/o M admitted on 01/24/19 for GI bleed. Pre-op diagnosis general: Anemia. Post-Op Diagnosis general: Gastric polyps. Procedure: Esophogogastroduodenoscopy Procedure Narrative: The procedure, alternatives and risks were discussed with the patient and the patient's questions were answered. With endoscopist-administered intravenous sedation, the Olympus video endoscope was introduced into the esophagus. The esophagus, stomach, and duodenum were examined sequentially. No abnormality seen. There is no esophagitis nor hiatal hernia. A small tongue of columnar epithelium was seen above the esophagogastric junction. This was multiply biopsied in order to assess for possible dysplasia. Multiple hemorrhagic hyperplastic gastric polyps were seen in the body of the stomach. They were removed with a snare and retrieved for histological examination. The sites were ablated with heater probe. The gastric mucosa, antrum, pyloric ring and duodenum were otherwise normal. There was no recurrent duodenal adenoma. The scope was withdrawn. Assessment: Gastric polyps.
[2019-01-25] MEDS ORDERED: PANTOPRAZOLE 40 MG TABLET PO SCH (17:00)
[2019-01-25] MEDS: OMEPRAZOLE 20 MG CAPSULE PO SCH ×2 (17:21→19:46)
[2019-01-25] MEDS ORDERED: GABAPENTIN 300 MG CAPSULE PO SCH ×2 (17:30→21:00)
[2019-01-25] MEDS: FUROSEMIDE 40 MG TABLET PO SCH (19:45)
[2019-01-25] MEDS: SENNOSIDES/DOCUSATE SODIUM 1 TAB TABLET PO SCH (19:46)
[2019-01-25] MEDS: INSULIN GLARGINE, HUMAN 1 UNIT/0.01 ML SQ SCH (19:51)
[2019-01-25] MEDS ORDERED: METOPROLOL SUCCINATE 50 MG TAB.XL.24H PO SCH (21:00)
[2019-01-25] MEDS ORDERED: ATORVASTATIN 20 MG TABLET PO SCH (21:00)
[2019-01-25] MEDS ORDERED: DULoxetine 30 MG CAPSULE PO SCH (21:00)
[2019-01-26] MEDS: 0.9 % SODIUM CHLORIDE 10 ML SYRINGE IV SCH (05:08)
[2019-01-26 06:17] LABS: Hematocrit 25.6 % (41.0-55.0); Hemoglobin 8.3 g/dL (13.5-16.5); Mean Cell Volume 86.2 fL (80.0-100.0); Mean Corpuscular HGB Conc 32.5 g/dL (31.0-36.0); Mean Platelet Volume 8.1 fL (7.4-10.4); Platelet Count 216 K/mcL (140-440); RBC 2.97 M/mcL (4.50-5.90); Red Cell Distribution Width 16.3 % (11.5-14.5); WBC 7.9 K/mcL (4.5-11.0)
[2019-01-26 06:32] LABS: ALT/SGPT 25 U/l (0-40); AST/SGOT 29 U/l (0-37); Albumin 3.9 gm/dL (3.2-5.2); Albumin/Globulin Ratio 1.5 (1.0-2.3); Alkaline Phosphatase 47 U/L (39-117); Bilirubin,Direct < 0.2 mg/dL (0.0-0.3); Bilirubin,Total 0.5 mg/dL (0.0-1.0); Blood Urea Nitrogen 11 mg/dl (8-23); Carbon Dioxide 29 mmol/L (22-30); Chloride 103 mmol/L (96-108); Globulin 2.6 gm/dL (2.2-3.7); Glomerular Filtration Rate 46; Glucose 138 mg/dL (70-105); Lactate Dehydrogenase 228 U/L (94-250); Phosphorous 3.3 mg/dL (2.7-4.5); Triglycerides 211 mg/dl (<150); Uric Acid 6.2 mg/dL (2.5-8.0)
[2019-01-26] MEDS: INSULIN LISPRO 1 UNIT/0.01 ML UNIT SQ SCH ×4 (08:00→11:40)
[2019-01-26 08:33] LABS: Anisocytosis 1+ (NONE SEEN); Eosinophils % (Manual) 4 % (0-7); Lymphocytes % 5 % (15-49); Monocytes % (Manual) 10 % (1-12); Platelet Estimate NORMAL (NORMAL); Polychromasia 1+ (NONE SEEN); RBC Morphology ABNORM (NORMAL); Segmented Neutrophils % 81 % (38-78)
[2019-01-26] MEDS: OMEPRAZOLE 20 MG CAPSULE PO SCH (08:36)
[2019-01-26] MEDS: DOCUSATE SODIUM 100 MG CAPSULE PO SCH (08:37)
[2019-01-26] MEDS: FUROSEMIDE 40 MG TABLET PO SCH (08:37)
[2019-01-26] MEDS ORDERED: ISOSORBIDE MONONITRATE 60 MG TAB.XL.24H PO SCH (09:00)
[2019-01-26] MEDS ORDERED: amLODIPine 5 MG TABLET PO SCH (09:00)
[2019-01-26] MEDS ORDERED: ASPIRIN 81 MG TAB.CHEW PO SCH (09:00)
[2019-01-26] MEDS ORDERED: TAMSULOSIN 0.4 MG CAPSULE PO SCH (09:00)
[2019-01-26] MEDS: INSULIN GLARGINE, HUMAN 1 UNIT/0.01 ML SQ SCH (10:10)
--- NOTE | 2019-01-26 10:44 | Discharge Summary ---
Medical - DS: Prov Patient information: Note initiated : 01/26/19 at 10:37 am Service Date, if different from initiated Date: [] Patient: Neftaly Poon 73 y/o M admitted on 01/24/19 for Chest pain. Chief Complaint: [] Date of admission: 01/24/19 14:35 Discharge date: 01/26/19 Primary care physician: Maryanne Brown Consults: 01/24/19 Consult to Physician [CONS] Stat Comment: Consulting Provider: Theodore Panda Reason For Exam: Physician to Consult Consult to Physician [CONS] Stat Comment: Consulting Provider: Bertin Chicas Reason For Exam: Physician to Consult 01/24/19 14:38 Consult to Physician [CONS] Routine Comment: Consulting Provider: Arlin Peguero Reason For Exam: Physician to Consult Medical - DS: Meds - Discharge Medications Active and Home Medications: Home Medications aspirin 81 mg tablet,delayed release 81 mg PO QDAY 01/13/15 [History Confirmed 01/24/19 Last Taken 01/23/19 09:00] nitroglycerin 0.4 mg sublingual tablet 0.4 mg SUBLINGUAL Q5-15MIN PRN 01/13/15 [History Confirmed 01/24/19 Last Taken Unknown] rosuvastatin 20 mg tablet 10 mg PO HS 01/13/15 [History Confirmed 01/24/19 Last Taken 01/23/19 17:00] tamsulosin 0.4 mg capsule 0.4 mg PO QDAY 30 Days #30 cap 02/04/15 [Rx Confirmed 01/24/19 Last Taken 01/23/19 09:00] ALPRAZolam [Xanax] 0.5 mg PO DAILYP PRN 07/09/17 [History Confirmed 01/24/19 Last Taken 03/09/18] Albuterol Sulfate [Ventolin] 2.5 mg NEB Q4HP PRN 07/09/17 [History Confirmed 01/24/19 Last Taken Unknown] DULoxetine [Cymbalta] 60 mg PO HS 07/09/17 [History Confirmed 01/24/19 Last Taken 01/23/19 22:00] Insulin Aspart [Novolog] 12 unit SQ TIDAC 07/09/17 [History Confirmed 01/24/19 Last Taken 01/23/19 17:00] Insulin Detemir [Levemir] 48 unit SQ BID 07/09/17 [History Confirmed 01/24/19 Last Taken 01/23/19 17:00] amLODIPine [Norvasc] 10 mg PO DAILY 07/09/17 [History Confirmed 01/24/19 Last Taken 01/23/19 09:00] metFORMIN [Glucophage] 1,000 mg PO BIDCC 07/09/17 [History Confirmed 01/24/[address] Taken 01/23/19 17:00] Ketoconazole 1 applic TOPICAL DAILYP PRN 11/05/18 [History Confirmed 01/24/19 Last Taken Unknown] acetaminophen 325 mg tablet 325 mg PO Q6H PRN 11/05/18 [History Confirmed Last Taken Unknown] cholecalciferol (vitamin D3) 5,000 unit capsule 5,000 unit PO QDAY 11/05/18 [History Confirmed 01/24/19 Last Taken 01/23/19 09:00] gabapentin 300 mg capsule See Rx Instructions PO HS 11/05/18 [History Confirmed 01/24/19 Last Taken 01/23/19 22:00] ointment compound TOPICAL 11/05/18 [History Confirmed 01/23/19 Last Taken Unknown] oxybutynin chloride 10 mg tablet,extended release 24 hr See Rx Instructions PO DAILY 11/05/18 [History Confirmed 01/24/19 Last Taken 01/23/19 22:00] oxymetazoline 0.05 % nasal spray 2 spray INTRANASAL Q12H PRN 11/05/18 [History Confirmed 01/24/19 Last Taken Unknown] potassium chloride 10 mEq capsule,extended release See Rx Instructions PO QDAY cap 11/05/18 [History Confirmed 01/24/19 Last Taken 01/23/19 22:00] sen-sen ( licorice Sucrets) 1 tab PO DAILYP PRN 11/05/18 [History Confirmed 01/24/19 Last Taken Unknown] canagliflozin 100 mg tablet 100 mg PO QAM 01/23/19 [History Confirmed 01/24/19 Last Taken 01/23/19 09:00] furosemide 40 mg tablet 80 mg PO BID tab 01/23/19 [History Confirmed 01/24/19 Last Taken 01/23/19 17:00] isosorbide mononitrate 60 mg tablet,extended release 24 hr 60 mg PO QAM tab 01/23/19 [History Confirmed 01/24/19 Last Taken 01/23/19 09:00] metoprolol succinate 50 mg tablet,extended release 24 hr 100 mg PO QHS tab 01/23/19 [History Confirmed 01/24/19 Last Taken 01/23/19 17:00] rivaroxaban 20 mg tablet 20 mg PO QPMCC 01/23/19 [History Confirmed 01/24/19 Last Taken 01/23/19 17:00] Lactase [Lactaid] 1 tab PO TIDP PRN 01/24/19 [History Confirmed 01/24/19 Last Taken Unknown] Lisinopril [Zestril] 20 mg PO HS 01/24/19 [History Confirmed 01/24/19 Last Taken Unknown] Pantoprazole [Protonix] 40 mg PO QAMAC 01/24/19 [History Confirmed 01/24/19 Last Taken 01/23/19 07:00] Medical - DS: Hosp Hospital Course: Discharge diagnosis * GI bleed with melenic stool-status post EGD/colonoscopy with angiodysplasia status post clipping. * Left-sided numbness-symptoms resolved currently on aspirin/statin. Not amenable to MRI due to multiple cardiac stents incompatibility. Head CT unremarkable. Echocardiogram from 2018 EF 60% without evidence of ASD. Continue statin/anticoagulation on rivaroxaban * Blood loss anemia hemoglobin -hemoglobin stable at 8.3. * Cholelithiasis with intermittent abdominal pain-clinically resolved. Pain likely secondary to fecal impaction that cleared post GoLYTELY. Although patient has a scheduled follow-up with surgeon Dr. Foreman at [facility] in February. No evidence of acute process on CT abdomen except for cholelithiasis. * Acute on chronic kidney disease stage III. Managed outpatient by nephrology. Creatinine now at baseline 1.5. Restart SRAVANI inhibitor * DM type II continue sliding-scale insulin/CC diet * History of CAD status post multiple PCI/stenting-continue isosorbide/statin/beta-jennifer, aspirin/SRAVANI inhibitor * History of aortic valve stenosis with possible thrombus-currently on rivaroxaban * History of hypertension -continue home medications * Anxiety disorder continue alprazolam/duloxetine * Chronic lymphedema continue home dose furosemide * History of asthma continue bronchodilators * Neuropathy continue gabapentin * History of BPH continue Flomax Brief hospital course Mr. Poon is a 73 year old M with a history of CAD S/P multiple stenting ([facility] cardiology Dr Brooks)/CKD stage III, DM type II, AVR, PAF on anticoagulation. 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 His symptoms lasted for over 6 hours. He searched his symptoms over internet and with concerns of stroke he presents to the ER. Head CT was unremarkable. Patients symptoms fully resolved with NIH 0 on presentation. He has been on aspirin and Xarelto(started 2 weeks ago in anticipation for AVR redo by Dr Brooks cardiology). During work-up he was found to have a hemoglobin 8.5. Significant to presenting complaint patient has been experiencing progressive fatigue and weakness over the last few weeks. in addition c/o generalized abdominal discomfort more pronounced around the epigastric area. He endorses to constipation, intermittent dark melenic stools, fatigue and malaise and decreased effort tolerance. His his symptoms were evaluated in the past without a definite etiology . He currently denies weight changes, alcohol use, NSAID intake or noticing bright red blood per rectum. Subsequently GI was consulted for upper endoscopy in light of significant drop in hemoglobin from a baseline of 13-8.5 on presentation. Creatinine elevated at 2.1 on presentation. Hospitalist service was consulted for admission At the time of evaluation patient is accompanied with his Sakina. He was ab le to answer most of the question and endorsed to history as above. He denied fever, chills, chest pain, palpitation, lightheadedness dizziness or photophobia. He further denies cough, dysuria. 01/25-patient on PPI drip. No overnight events. Status post EGD. Shows esophagitis. Now awaiting colonoscopy undergoing prep. MRI brain cannot be performed in light of multiple stents in RCA. Patient complains of numbness and tingling left side of the body. Continue aspirin but hold rivaroxaban until procedure to minimize risk of post procedural biopsy bleeding. Will restart anticoagulation within 24 hours. Abdominal pain/discomfort improved. Hemoglobin 8.1. No indication for transfusion as yet. Creatinine down to 1.6. SRAVANI inhibitor is on hold. Renal ultrasound. No telemetry event junctional rhythm regular. 01/26-patient doing well. No overnight events. Tolerating diet. Status post EGD/colonoscopy with AV malformation status post cauterization. Currently on aspirin in light of coronary artery disease but rivaroxaban held for the last 72 hours. Cardiology recommends reinitiation of Xarelto in light of possible aortic valve thrombus. No overnight events. No further drop in hemoglobin. 8.3. Creatinine stable at 1.5. Numbness and tingling symptoms resolved. Feels great. Requesting discharge Discharge diagnosis: . - Time Spent with Patient Total time spent providing and/or coordinating discharge services: Greater than 30 minutes Medical - DS: Exam - Constitutional Vitals: Vital Signs Temp Pulse Pulse Resp BP Pulse Ox 01/26/19 10:08 64 18 140/68 97 01/26/19 08:02 98.7 F 18 128/49 95 01/26/19 07:02 57 L 16 105/47 94 01/26/19 06:02 58 L 18 143/65 96 01/26/19 05:02 52 L 18 136/61 95 01/26/19 04:03 98.0 F 59 L 129/57 96 01/26/19 03:02 56 L 119/40 94 01/26/19 02:02 58 L 20 122/50 95 01/26/19 02:00 60 20 95 01/26/19 01:02 60 18 144/67 96 01/26/19 00:02 98.8 F 63 18 151/74 95 01/25/19 23:02 60 20 153/82 97 01/25/19 22:02 60 18 164/63 97 01/25/19 21:02 67 20 143/72 95 01/25/19 20:03 98.6 F 18 156/80 01/25/19 19:02 70 20 159/69 95 01/25/19 18:12 71 18 164/70 100 01/25/19 18:02 74 168/68 99 01/25/19 17:32 67 148/67 97 01/25/19 17:01 67 149/67 98 01/25/19 16:56 68 150/69 96 01/25/19 16:47 98.8 F 64 158/85 100 01/25/19 16:22 98.8 F 59 L 14 142/59 95 01/25/19 15:37 98.8 F 64 16 163/67 99 01/25/19 15:01 163/67 99 01/25/19 14:01 64 176/66 98 01/25/19 13:07 16 183/71 97 01/25/19 12:05 98.8 F 59 L 16 176/64 97 01/25/19 11:01 59 L 163/77 94 Intake and Output 01/25/19 01/26/19 01/26/19 21:59 05:59 13:59 Intake Total 545 120 240 Output Total 850 2000 0 Balance -305 -1880 240 Intake: IV 65 Oral 480 120 240 Output: Void Amount 500 2000 0 Stool 350 Other: Meal Breakfast Breakfast Percent of Meal Consumed 100% 100% Feeding Ability Independent Urine Appearance Clear Clear Urine Color Bright Yellow Bright Yellow Urine Odor Normal Weight 243 lb 5 oz Medical - DS: Data Labs on day of discharge: Labs from last 24 hours 01/26/19 01/26/19 01/25/19 03:50 03:50 11:55 WBC 7.9 RBC 2.97 L Hgb 8.3 L 8.3 L Hct 25.6 L MCV 86.2 MCH 28.1 MCHC 32.5 RDW 16.3 H Plt Count 216 MPV 8.1 Total Counted 100 Seg Neutrophils % 81 H Band Neutrophils % Not Reportable Lymphocytes % 5 L Monocytes % (Manual) 10 Eosinophils % (Manual) 4 Platelet Estimate Normal RBC Morphology Abnorm A Polychromasia 1+ A Anisocytosis 1+ A Sodium 143 Potassium 3.5 Chloride 103 Carbon Dioxide 29 Anion Gap 11.0 BUN 11 Creatinine 1.5 H GFR Calculation 46 Glucose 138 H Uric Acid 6.2 Calcium 9.0 Phosphorus 3.3 Magnesium 2.1 Total Bilirubin 0.5 Direct Bilirubin < 0.2 GGT 15 AST 29 ALT 25 Alkaline Phosphatase 47 Lactate Dehydrogenase 228 Total Protein 6.5 Albumin 3.9 Globulin 2.6 Albumin/Globulin Ratio 1.5 Triglycerides 211 H Medical - DS: A/P - Patient/Caregiver Discharge Instructions Activity: increase activity as tolerated Diet: Regular Diet Additional Instructions: Follow-up with cardiology Follow-up with GI in 2 weeks follow-up PCP in 2 weeks Return to ER if melenic stool/lightheadedness dizziness noted Continue follow-up with prior care providers including nephrology for CKD, general surgeon at [facility] Dr. Foreman for cholelithiasis evaluation/cardiology Dr. Jenkins/Zachery at [facility] cardiology for AV valve replacement - Problem Maintenance (1) GI bleed Status: Acute - Follow up Plan Follow up with: Maryanne Brown ARNP [Primary Care Provider] - Disposition: Home, Self-Care Prognosis: Fair Rehab Potential: Fair I certify that the patient requires SNF services: No Overall status at discharge: patient is progressing back to baseline Medical - DS: Qual - VTE Deep Vein Thrombosis/Pulmonary Embolism Present on Admission: No
--- NOTE | 2019-01-28 12:41 | Surgical Pathology Report ---
HISTOLOGY SPECIMEN MICROSCOPIC DIAGNOSIS SPECIMEN A - ESOPHAGUS, BIOPSY: -- GASTROESOPHAGEAL JUNCTIONAL MUCOSA WITH MILD CHRONIC INFLAMMATION. -- NO INTESTINAL METAPLASIA IDENTIFIED (ALCIAN BLUE STAIN WITH ADEQUATE TECHNICAL CONTROL). -- PORTIONS OF SQUAMOUS MUCOSA LACK INCREASED EOSINOPHILS. SPECIMEN B - STOMACH, POLYPECTOMIES: -- MULTIPLE PORTIONS OF HYPERPLASTIC POLYP. -- NO HELICOBACTER TYPE ORGANISMS IDENTIFIED (ALCIAN YELLOW STAIN WITH ADEQUATE TECHNICAL CONTROL). (RLF:ingrid) CLINICAL HISTORY Anemia. PROCEDURAL IMPRESSION Guevara's (?); polyps. GROSS DESCRIPTION Specimen A: Received in formalin labeled esophageal biopsy, are three alvarenga-romero tissue fragments from 0.3 to 0.4 cm. Entirely submitted - one cassette. Specimen B: Received in formalin labeled gastric polyps, are multiple romero tissue fragments and red-brown clot-like fragments from 0.3 to 0.8 cm. Entirely submitted - one cassette. (SCB:ingird) Electronically Signed by: Deena Bragg M.D.
--- NOTE | 2019-01-29 11:08 | Surgical Pathology Report ---
HISTOLOGY SPECIMEN MICROSCOPIC DIAGNOSIS COLON, ASCENDING POLYP, POLYPECTOMY: -- TUBULAR ADENOMA. (BETTINA:ingrid) CLINICAL HISTORY Anemia. PROCEDURAL IMPRESSION Polyp; angiodysplasia. GROSS DESCRIPTION Received in formalin labeled ascending colon polyp, is a 0.5 cm fragment of romero tissue. Totally submitted - one cassette. (KGW:ingrid) Electronically Signed by: Simón Rosales M.D.
== END 2019-01-26 13:20 | disposition home or self-care (01) | DRG 378 ==
LOC: ED 06:11 → ICU 14:35
PROVIDERS: ADMIT Internal Medicine; ATTEND Internal Medicine

== ENCOUNTER 2019-11-15 20:41 | Inpatient (IN) ==
[2019-11-15 22:21] LABS: Basophils # (Auto) 0.06 K/mcL (0.00-0.30); Basophils % (Auto) 0.6 % (0.0-2.0); Eosinophils # (Auto) 0.11 K/mcL (0.00-0.70); Eosinophils % (Auto) 1.1 % (0.0-7.0); Granulocytes % (Auto) 77.4 % (38.0-78.0); Hematocrit 39.6 % (40.1-51.0); Hemoglobin 13.7 g/dL (13.7-17.5); Lymphocytes # (Auto) 0.78 K/mcL (1.50-4.80); Lymphocytes % (Auto) 7.8 % (15.5-49.0); Mean Cell Volume 86.1 fL (80.0-100.0); Mean Corpuscular HGB Conc 34.6 g/dL (31.0-36.0); Mean Platelet Volume 11.1 fL (7.4-10.4); Monocytes # (Auto) 1.32 K/mcL (0.10-0.90); Monocytes % (Auto) 13.1 % (1.0-12.0); Platelet Count 199 K/mcL (140-440); Red Cell Distribution Width 14.7 % (11.5-14.5); WBC 10.1 K/mcL (4.50-11.00)
[2019-11-15 22:36] LABS: ALT/SGPT 39 U/l (0-40); AST/SGOT 46 U/l (0-37); Albumin/Globulin Ratio 1.1 (1.0-2.3); Alkaline Phosphatase 70 U/L (39-117); Bilirubin,Total 0.9 mg/dL (0.0-1.0); Blood Urea Nitrogen 69 mg/dl (8-23); Calcium 9.6 mg/dl (8.6-10.4); Carbon Dioxide 32 mmol/L (22-30); Globulin 3.5 gm/dL (2.2-3.7); Glomerular Filtration Rate 21; Glucose 394 mg/dL (70-105)
[2019-11-15 22:42] LABS: Chloride 85 mmol/L (96-108)
[2019-11-15] MEDS ORDERED: POTASSIUM CHLORIDE 20 MEQ PACKET PO ONE (22:44)
[2019-11-15] MEDS ORDERED: ONDANSETRON 4 MG/2 ML VIAL IV PRN (23:26)
[2019-11-15] MEDS ORDERED: POTASSIUM CHLORIDE 20 MEQ in DEXTROSE 5% IN WATER 250 ML IV ONE (23:26)
[2019-11-15] MEDS ORDERED: DEXTROSE 31 GM ORAL.SUSP PO PRN (23:26)
[2019-11-15] MEDS ORDERED: DEXTROSE 50% 50 ML VIAL IV PRN (23:26)
[2019-11-16 00:32] LABS: Blood Urea Nitrogen 66 mg/dl (8-23); Calcium 9.3 mg/dl (8.6-10.4); Carbon Dioxide 30 mmol/L (22-30); Chloride 86 mmol/L (96-108); Glomerular Filtration Rate 22; Glucose 367 mg/dL (70-105)
[2019-11-16] MEDS ORDERED: POTASSIUM CHLORIDE 20 MEQ/10 ML VIAL IV ONE (01:11)
[2019-11-16] MEDS: 0.9 % SODIUM CHLORIDE 1,000 ML IV SCH ×4 (01:12→20:16)
[2019-11-16] MEDS: INSULIN LISPRO 1 UNIT/0.01 ML UNIT SQ SCH ×8 (01:13→20:28)
--- NOTE | 2019-11-16 04:32 | Cat Scan Report ---
CLINICAL INFORMATION: History of TIA and dizziness COMPARISON: 02/25/2019 TECHNIQUE: 2.5 mm helical slices were obtained in the skull base to vertex. Following reconstruction, axial reformatted images were reviewed at bone and parenchymal windows. The exam was performed using radiation dose optimization techniques including, but not limited to, automated exposure control, adjustment of the mA and/or kV according to patient size and use of iterative reconstruction technique. FINDINGS: The ventricles, sulci, fissures, and cisterns are symmetrically enlarged compatible with mild age-related atrophy - no subdural hemorrhage or other extra-axial fluid collection appreciated. 10 mm remote lacunar infarct in the left lentiform nucleus, a few scattered tiny remote lacunar infarcts in head of left caudate with an punctate lacunar infarcts in the remaining left basal ganglia are also seen - as before. There is mild chronic ischemic changes in the deep cerebral white matter are stable. There is no intracerebral hemorrhage, mass effect, edema or other acute finding. Bone windows show arachnoid granulation in the midline occipital bone that as previously seen. No significant osseous abnormality IMPRESSION: Mild atrophy with chronic ischemic changes the the cerebral white matter - expected for age. Old 10 mm lacunar infarct in the left basal ganglia stable. No acute findings. Interpreted and Authenticated by: Johnie Lawson 11/16/19
[2019-11-16] MEDS: 0.9 % SODIUM CHLORIDE 10 ML SYRINGE IV SCH ×3 (05:15→15:27)
[2019-11-16] MEDS ORDERED: INSULIN LISPRO 1 UNIT/0.01 ML UNIT SQ SCH (07:30)
--- NOTE | 2019-11-16 08:03 | Internal Med History&Physical ---
HPI History of Present Illness Patient information: Note initiated : 11/16/19 at 7:57 am Service Date, if different from initiated Date: [] Patient: Neftaly Poon a 73 y/o M admitted on 11/16/19 for Dizziness. Chief Complaint: [] History of present illness: Mr. Poon is a 73 year old M Presents to the ED with nausea but no vomiting, upset stomach but no pain, dizziness and lightheadedness. Has been camping lately and has some diarrhea but says he had that before he went on A trip. He describes his diarrhea as every few days with intermittent constipation. Only stools are hard and dark he does take iron and then he will have intermittent episode of the soft dark stool. Last episode of what he calls diarrhea was last night where he was dark and soft, not watery. He started several medications recently about 2 weeks ago and these include clonidine allopurinol and metolazone. He is supposed to see a microstrategy bi developer up in [place] for some chronic abdominal issues. He states year and a half or so ago he had some issues with bowel blockages and then some bleeding from it. He did have a cholecystectomy in [place] and February. He says his blood sugars typically run 1 20-1 50 but then been elevated the past week and he has been taking his insulin and eating appropriately. Evaluated in ER and found to have potassium of 2.3 with a creatinine of 2.8 with a baseline creatinine around 2. Is also found to be hyperglycemic at 367. Did have a CT brain for dizziness which showed old infarct and some mild atrophy no acute pathology. In the ED was given a potassium and IV fluids. Review of Systems: Pertinent positives as above. Denies headache/fever/chills/vomiting/chest or abdominal pain/cough/dyspnea. 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 of anticoagulants (Chronic) Obesity (BMI 30-39.9) (Chronic) Stroke (Chronic) Paroxysmal atrial fibrillation (Chronic) Atrial fibrillation (Chronic) Chronic diastolic heart failure (Chronic) Hypertensive heart disease with heart failure (Chronic) 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) Hypertension, essential (Chronic) Diabetes mellitus type 2, controlled, without complications (Chronic) CKD (chronic kidney disease), stage III (Chronic) Aortic valve disorder (Chronic) MELI (obstructive sleep apnea) (Chronic) Dermatofibroma of lower leg (Chronic) Hypoxemia (Chronic) Plantar warts (Chronic) Cholelithiasis (Chronic) Anemia (Acute) Hyperlipemia (Chronic) Dyspnea (Chronic) Chest heaviness (Chronic) Esophageal stricture (Chronic) MCFP (current) use of aspirin (Chronic) salvage determiner (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) use of insulin (Chronic) Thoracic back pain (Chronic) Pure hypercholesterolemia (Chronic) Male urinary stress incontinence (Chronic) Endogenous obesity (Chronic) Incontinence (Chronic) Depression (Chronic) Asthma (Chronic) Hypercholesterolemia (Chronic) Obstructive nephropathy (Chronic) Insomnia (Chronic) BPH with urinary obstruction (Chronic) Vitamin D deficiency (Chronic) Overactive bladder (Chronic) Gastroesophageal reflux (Chronic) Cervicalgia (Chronic) Benign prostatic hyperplasia with lower urinary tract symptoms (Chronic 10/16/13) Medical History (Updated 10/01/19 @ 09:43 by Fernie Cheung MD) Acute kidney injury superimposed on CKD (Resolved) Acute on chronic renal failure (Resolved) Acute renal failure (Resolved) Anemia (Acute) Aortic valve disorder (Chronic) Asthma (Chronic) Atrial fibrillation (Chronic) Atypical chest pain (Resolved) Benign paroxysmal positional vertigo (Resolved) Benign prostatic hyperplasia with lower urinary tract symptoms (Chronic 10/16/13) Bicuspid aortic valve (Chronic) history of BPH with urinary obstruction (Chronic) Cervicalgia (Chronic) Chest heaviness (Chronic) Cholelithiasis (Chronic) Chronic diastolic heart failure (Chronic) CKD (chronic kidney disease), stage III (Chronic) Constipation (Resolved) Depression (Chronic) Dermatofibroma of lower leg (Chronic) Diabetes mellitus type 2, controlled, without complications (Chronic) Dysphagia (Chronic) Dyspnea (Chronic) Endogenous obesity (Chronic) Esophageal stricture (Chronic) Gastroesophageal reflux (Chronic) Generalized abdominal pain (Resolved) GI bleed (Resolved) History of coronary angiogram (Acute) 11/2013 and 02/02/2015 per patient. History of gastric ulcer (Resolved) History of heat stroke (Resolved) History of heat stroke (Resolved) History of pneumonia (Resolved) History of tobacco use (Chronic) History of urinary incontinence (Resolved) Hypercholesterolemia (Chronic) Hyperlipemia (Chronic) Hypertension, essential (Chronic) Hypertensive heart disease with heart failure (Chronic) Hypoxemia (Chronic) Incontinence (Chronic) Ingrown toenail of both feet (Chronic ~03/2016) Insomnia (Chronic) Laryngeal disorder (Resolved) spasms MCFP (current) use of anticoagulants (Chronic) MCFP (current) use of aspirin (Chronic) salvage determiner (current) use of insulin (Chronic) Lower GI bleed (Resolved) Male urinary stress incontinence (Chronic) Obesity (BMI 30-39.9) (Chronic) Obstructive nephropathy (Chronic) MELI (obstructive sleep apnea) (Chronic) Overactive bladder (Chronic) Paroxysmal atrial fibrillation (Chronic) Plantar fasciitis of right foot (Resolved) Plantar wart (Resolved) Plantar warts (Chronic) PNA (pneumonia) (Resolved) Pure hypercholesterolemia (Chronic) Right-sided chest pain (Resolved) Stroke (Chronic) Thoracic back pain (Chronic) 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) Vitamin D deficiency (Chronic) Wheezing (Resolved) Surgical History H/O aortic valve replacement with porcine valve (Chronic 02/23/15) History of cataract surgery (Chronic ~2014) History of repair of hiatal hernia (Chronic ~1990) Stents 1994, 2004, 1990, 2012 History of surgery (Chronic) Bone spur fascitis release right foot History of surgery (Chronic) Removed tarsal nerve History of transurethral resection of prostate (Chronic ~2015) Hx of colonoscopy (Chronic 04/27/16) 2001 Hx of foot surgery (Chronic) right Hx of shoulder surgery (Chronic) 2003 right, left in 1973 Hx of tonsillectomy (Chronic ~1960) Status post right foot surgery (Chronic 07/17/08) bone spur and plantar fasciitis release, removal of tarsal nerve Family History none listed Depression Type 2 diabetes mellitus Hypercholesterolemia Hypertension Acute myocardial infarction Father , age 88 H/O heart bypass surgery Depression Type 2 diabetes mellitus Hypercholesterolemia Hypertension Acute myocardial infarction High cholesterol Mother , age 84 Heart disease History of angina Hypertension High cholesterol History of diabetes mellitus Depression Social History (Updated 08/14/19 @ 11:09 by DONNIE Ann) marital status: occupational status: retired physical activity: other smoking status: Former smoker smoking status stop date: 03/13/83 alcohol intake frequency: does not drink substance use type: does not use MEDS/ALLERGIES Home Medications and Allergies Home Medications Medication Instructions Recorded Confirmed Type aspirin 81 mg tablet,delayed 81 mg PO QDAY 01/13/15 11/16/19 History release nitroglycerin 0.4 mg sublingual 0.4 mg SUBLINGUAL Q5-15MIN PRN 01/13/15 11/15/19 History tablet tamsulosin 0.4 mg capsule 0.4 mg PO QDAY 30 Days #30 cap 02/04/15 11/16/19 Rx albuterol sulfate 2.5 mg NEB Q4HP PRN 07/09/17 11/16/19 History cholecalciferol (vitamin D3) 125 5,000 unit PO QDAY 11/05/18 11/16/19 History mcg (5,000 unit) capsule ketoconazole 2 % shampoo 1 applic TOPICAL DAILYP PRN 11/05/18 11/16/19 History amoxicillin 500 mg tablet 2,000 mg PO QDAY PRN tab 02/02/19 11/16/19 History furosemide 80 mg tablet 80 mg PO BID 04/02/19 11/16/19 History CPAP #1 ea 04/04/19 11/16/19 History ferrous gluconate 324 mg (38 mg 324 mg PO BID tab 05/14/19 11/16/19 History iron) tablet insulin detemir U-100 100 unit/mL 48 unit SUB-Q BID ml 05/14/19 11/16/19 History subcutaneous solution duloxetine 60 mg capsule,delayed 60 mg PO QHS cap 05/27/19 11/16/19 History release sprinkle metoprolol succinate 100 mg 100 mg PO BID 05/27/19 11/16/19 History tablet,extended release 24 hr rosuvastatin 10 mg tablet 10 mg PO QHS tab 05/27/19 11/16/19 History gabapentin 300 mg capsule See Rx Instructions .ROUTE 10/01/19 11/16/19 History .COMPLEX cap insulin aspart U-100 100 unit/mL 25 unit SUBCUT TIDAC ml 10/01/19 11/16/19 History subcutaneous solution isosorbide mononitrate 60 mg 60 mg PO QAM 10/01/19 11/16/19 History tablet,extended release 24 hr pantoprazole 40 mg tablet,delayed 40 mg PO QAM tab 10/01/19 11/16/19 History release clonidine HCl 0.1 mg tablet 0.1 mg PO BID tab 10/25/19 11/16/19 History metolazone 2.5 mg tablet 2.5 mg PO 3XW #20 tab 10/25/19 11/16/19 Rx oxybutynin chloride 5 mg tablet See Rx Instructions PO BID #90 tab 11/08/19 11/16/19 Rx allopurinol 100 mg PO QDAY 11/16/19 11/16/19 History mometasone 1 applic TOPICAL QDAY PRN 11/16/19 11/16/19 History Allergies Allergy/AdvReac Type Severity Reaction Status Date / Time clopidogrel [From PLAVIX] Allergy Mild HIVES Verified 11/16/19 07:39 prasugrel [From Effient] AdvReac Intermediate Nose Bleed Verified 11/16/19 07:39 niacin [NIACIN] AdvReac Mild RASH, Verified 11/16/19 00:39 HIVES WITH HIGH DOSES EXAM Constitutional Vitals: Temp Pulse Resp BP Pulse Ox 97.5 F 61 17 150/64 92 11/16/19 03:53 11/16/19 03:53 11/16/19 03:53 11/16/19 03:53 11/16/19 03:53 Exam: General: Alert, Awake, No acute Distress Eyes/N/T: EOMI, PERRL, dry MM Head/Neck: neck supple, normocephalic atraumatic CV: RRR, 3/6SM Pulm: Clear b/l, no wheezing/rhonchi/rales Abd: soft, nontender, +BS x4 Ext: no clubbing/cyanosis, trace b/l LE edema Neuro: Alert, no focal deficits, moves all extremities, CN 2-12 grossly intact, symmetrical strength b/l upper/lower, sensations intact b/l upper/lower Skin: warm/dry DATA Data Completed and Pending Labs: Labs from last 24 hours 11/15/19 11/15/19 11/15/19 23:40 22:05 22:05 WBC RBC Hgb Hct MCV MCH MCHC RDW Plt Count MPV Gran % Lymph % (Auto) [place] % (Auto) Eos % (Auto) Baso % (Auto) Gran # Lymph # (Auto) [place] # (Auto) Eos # (Auto) Baso # (Auto) Sodium 135 136 Potassium 2.7 L* 2.3 L* Chloride 86 L 85 L Carbon Dioxide 30 32 H Anion Gap 19.0 H 19.0 H BUN 66 H 69 H Creatinine 2.8 H 2.9 H GFR Calculation 22 21 Glucose 367 H 394 H Calcium 9.3 9.6 Magnesium 1.9 Total Bilirubin 0.9 AST 46 H ALT 39 Alkaline Phosphatase 70 Total Protein 7.5 Albumin 4.0 Globulin 3.5 Albumin/Globulin Ratio 1.1 11/15/19 22:05 WBC 10.1 RBC 4.60 L Hgb 13.7 Hct 39.6 L MCV 86.1 MCH 29.8 MCHC 34.6 RDW 14.7 H Plt Count 199 MPV 11.1 H Gran % 77.4 Lymph % (Auto) 7.8 L [place] % (Auto) 13.1 H Eos % (Auto) 1.1 Baso % (Auto) 0.6 Gran # 7.79 Lymph # (Auto) 0.78 L [place] # (Auto) 1.32 H Eos # (Auto) 0.11 Baso # (Auto) 0.06 Sodium Potassium Chloride Carbon Dioxide Anion Gap BUN Creatinine GFR Calculation Glucose Calcium Magnesium Total Bilirubin AST ALT Alkaline Phosphatase Total Protein Albumin Globulin Albumin/Globulin Ratio A/P Narrative A/P Narrative: A: *Hypokalemia: suspect medication and 2 /2 diarrhea. metabolic disturbance from hyperglycemia/ROBERTO *ROBERTO on CKD III: Prerenal with including diuretics and volume depletion from hyperglycemia *Intermittent Diarrhea/constipation: *Hyperglycemia, DM w/neuropathy: -A1c *HTN/HLD *CAD w/stent: *h/o CVA: *GERD: *Anemia, chronic: *MELI on cpap: P: -IVF -Potassium replacement -Continue home basal insulin and titrate, SSI -a1c -stool studies if diarrhea -cont asa/statin -cont clonidine/BB/imdur -hold lasix/metolazone for ROBERTO -home cpap - -pt/ot -ppx:lovenox/home ppi full code Time Spent With Patient Time: Total time spent is greater than 50% in coordination of care (as documented) at patient's floor/unit and/or counseling patient: QUALITY VTE Deep Vein Thrombosis/Pulmonary Embolism Present on Admission: No
[2019-11-16] MEDS ORDERED: DOCUSATE SODIUM 100 MG CAPSULE PO SCH (09:00)
[2019-11-16 09:58] LABS: ALT/SGPT 39 U/l (0-40); AST/SGOT 45 U/l (0-37); Albumin/Globulin Ratio 1.2 (1.0-2.3); Alkaline Phosphatase 61 U/L (39-117); Bilirubin,Direct 0.3 mg/dL (0.0-0.3); Bilirubin,Total 0.9 mg/dL (0.0-1.0); Blood Urea Nitrogen 63 mg/dl (8-23); Calcium 9.6 mg/dl (8.6-10.4); Carbon Dioxide 31 mmol/L (22-30); Globulin 3.3 gm/dL (2.2-3.7); Glomerular Filtration Rate 27; Glucose 293 mg/dL (70-105); Lactate Dehydrogenase 248 U/L (94-250); Phosphorous 3.8 mg/dL (2.7-4.5); Uric Acid 14.1 mg/dL (2.5-8.0)
[2019-11-16 10:09] LABS: Chloride 91 mmol/L (96-108); Triglycerides 556 mg/dl (<150)
[2019-11-16] MEDS ORDERED: POTASSIUM CHLORIDE 20 MEQ TABLET PO ONE ×2 (10:11→19:05)
[2019-11-16] MEDS ORDERED: POTASSIUM CHLORIDE 40 MEQ in DEXTROSE 5% IN WATER 500 ML IV ONE (10:12)
[2019-11-16] MEDS ORDERED: SENNOSIDES 1 TABLET PO PRN (10:13)
[2019-11-16] MEDS ORDERED: MAGNESIUM SULFATE 2 GM/50 ML BAG IV PRN (10:13)
[2019-11-16] MEDS ORDERED: POTASSIUM CHLORIDE 20 MEQ TABLET PO PRN ×2 (10:13)
[2019-11-16] MEDS ORDERED: POTASSIUM CHLORIDE 40 MEQ in DEXTROSE 5% IN WATER 500 ML IV PRN (10:13)
[2019-11-16] MEDS ORDERED: POLYETHYLENE GLYCOL 3350 17 GM PACKET PO PRN (10:13)
[2019-11-16] MEDS ORDERED: ACETAMINOPHEN 325 MG TABLET PO PRN (10:13)
[2019-11-16] MEDS ORDERED: IPRATROPIUM/ALBUTEROL 3 ML AMPUL.NEB NEB PRN (10:13)
[2019-11-16] MEDS ORDERED: ONDANSETRON 4 MG/2 ML VIAL IV PRN (10:13)
[2019-11-16] MEDS ORDERED: METOCLOPRAMIDE 10 MG/2 ML VIAL IV PRN (10:13)
[2019-11-16] MEDS ORDERED: ALBUTEROL SULFATE 2.5 MG/3 ML NEBULIZER NEB PRN (10:18)
[2019-11-16] MEDS ORDERED: NITROGLYCERIN 0.4 MG TAB.SUBL SL PRN (10:29)
[2019-11-16] MEDS ORDERED: 0.9 % SODIUM CHLORIDE 250 ML IV ONE (10:34)
[2019-11-16 11:00] LABS: Hemoglobin A1C 8.2 % HGB (4.0-6.0)
--- NOTE | 2019-11-16 11:58 | Discharge Summary ---
Discharge Provider Provider Patient information: Note initiated : 11/16/19 at 11:57 am Service Date, if different from initiated Date: [] Patient: Neftaly Poon 73 y/o M admitted on 11/16/19 for Dizziness. Chief Complaint: [] Date of admission: 11/16/19 00:07 Discharge date: 11/18/19 Primary care physician: Maryanne Brown Consults: 11/15/19 Consult to Physician [CONS] Stat Comment: Consulting Provider: Jayson Restrepo Reason For Exam: Physician to Consult Discharge Meds Discharge Medications Home Medications aspirin 81 mg tablet,delayed release 81 mg PO QDAY 01/13/15 [History Confirmed 11/16/19 Last Taken 11/15/19 08:00] nitroglycerin 0.4 mg sublingual tablet 0.4 mg SUBLINGUAL Q5-15MIN PRN 01/13/15 [History Confirmed 11/15/19 Last Taken Unknown] tamsulosin 0.4 mg capsule 0.4 mg PO QDAY 30 Days #30 cap 02/04/15 [Rx Confirmed 11/16/19 Last Taken 11/15/19 08:00] albuterol sulfate 2.5 mg NEB Q4HP PRN 07/09/17 [History Confirmed 11/16/19 Last Taken Unknown] cholecalciferol (vitamin D3) 125 mcg (5,000 unit) capsule 5,000 unit PO QDAY 11/05/18 [History Confirmed 11/16/19 Last Taken 11/15/19 08:00] ketoconazole 2 % shampoo 1 applic TOPICAL DAILYP PRN 11/05/18 [History Confirmed 11/16/19 Last Taken 11/12/19] amoxicillin 500 mg tablet 2,000 mg PO QDAY PRN tab 02/02/19 [History Confirmed 11/16/19 Last Taken 11/11/19 08:00] furosemide 80 mg tablet 80 mg PO BID 04/02/19 [History Confirmed 11/16/19 Last Taken 11/15/19 08:00] CPAP #1 ea 04/04/19 [History Confirmed 11/16/19 Last Taken Unknown] ferrous gluconate 324 mg (38 mg iron) tablet 324 mg PO BID tab 05/14/19 [History Confirmed 11/16/19 Last Taken 11/15/19 08:00] insulin detemir U-100 100 unit/mL subcutaneous solution 48 unit SUB-Q BID ml 05/14/19 [History Confirmed 11/16/19 Last Taken 11/15/19 08:00] duloxetine 60 mg capsule,delayed release sprinkle 60 mg PO QHS cap 05/27/19 [History Confirmed 11/16/19 Last Taken 11/15/19 08:00] metoprolol succinate 100 mg tablet,extended release 24 hr 100 mg PO BID 05/27/19 [History Confirmed 11/16/19 Last Taken 11/15/19 08:00] rosuvastatin 10 mg tablet 10 mg PO QHS tab 05/27/19 [History Confirmed 11/16/19 Last Taken 11/14/19 20:00] gabapentin 300 mg capsule See Rx Instructions .ROUTE .COMPLEX cap 10/01/19 [History Confirmed 11/16/19 Last Taken 11/15/19 08:00] insulin aspart U-100 100 unit/mL subcutaneous solution 25 unit SUBCUT TIDAC ml 10/01/19 [History Confirmed 11/16/19 Last Taken 11/15/19 08:00] isosorbide mononitrate 60 mg tablet,extended release 24 hr 60 mg PO QAM 10/01/19 [History Confirmed 11/16/19 Last Taken 11/14/19 08:00] pantoprazole 40 mg tablet,delayed release 40 mg PO QAM tab 10/01/19 [History Confirmed 11/16/19 Last Taken 11/15/19 07:30] clonidine HCl 0.1 mg tablet 0.1 mg PO BID tab 10/25/19 [History Confirmed 11/16/19 Last Taken 11/15/19 08:00] oxybutynin chloride 5 mg tablet See Rx Instructions PO BID #90 tab 11/08/19 [Rx Confirmed 11/16/19 Last Taken 11/15/19 08:00] allopurinol 100 mg PO QDAY 11/16/19 [History Confirmed 11/16/19 Last Taken 11/15/19 08:00] mometasone 1 applic TOPICAL QDAY PRN 11/16/19 [History Confirmed 11/16/19 Last Taken 11/12/19] fenofibrate micronized 43 mg PO DAILY #30 cap 11/18/19 [Rx Last Taken Unknown] insulin glargine [Lantus U-100 Insulin] 55 unit SUBCUT BID #10 ml 11/18/19 [Rx Last Taken Unknown] metoprolol succinate 75 mg PO BID #1 tab 11/18/19 [Rx Last Taken Unknown] COURSE Hospital Course Hospital course: History of present illness: Mr. Poon is a 73 year old M Presents to the ED with nausea but no vomiting, upset stomach but no pain, dizziness and lightheadedness. Has been camping lately and has some diarrhea but says he had that before he went on A trip. He describes his diarrhea as every few days with intermittent constipation. Only stools are hard and dark he does take iron and then he will have intermittent episode of the soft dark stool. Last episode of what he calls diarrhea was last night where he was dark and soft, not watery. He started several medications recently about 2 weeks ago and these include clonidine allopurinol and metolazone. He is supposed to see a palliative care coordinator up in [place] for some chronic abdominal issues. He states year and a half or so ago he had some issues with bowel blockages and then some bleeding from it. He did have a cholecystectomy in [place] and February. He says his blood sugars typically run 1 20-1 50 but then been elevated the past week and he has been taking his insulin and eating appropriately. Evaluated in ER and found to have potassium of 2.3 with a creatinine of 2.8 with a baseline creatinine around 2. Is also found to be hyperglycemic at 367. Did have a CT brain for dizziness which showed old infarct and some mild atrophy no acute pathology. In the ED was given a potassium and IV fluids. / Feeling better today. Potassium improved and renal function improved. Still appearing to need some IV fluid today. 11/17 Heart rate 40s last night was 139. Asymptomatic, Otherwise no issues or new complaints. Perhaps mild bradycardia in conjunction with dehydration attributed to hypoperfusion. Renal function stable electrolytes within normal limits. For discharge. A: *Hypokalemia: suspect medication and diarrhea. metabolic disturbance from hyperglycemia/ROBERTO *ROBERTO on CKD III: Prerenal with including diuretics and volume depletion from hyperglycemia -improving with IVF *Intermittent Diarrhea/constipation: *Hyperglycemia, DM w/neuropathy: -A1c 8.2 -increase basal insulin from 48 bid to 55 bid *HTN/HLD *CAD w/stent: *h/o CVA: *GERD: *Anemia, chronic: *MELI on cpap: *Hypertriglyceridemia: started fenofibrate *Bradycardia overnight in the 40's, as low as 39. Heart rate between 40s and 60s during admission. Asymptomatic but I wonder if some bradycardia in conjunction with dehydration contributed to original hypoperfusion leading to acute kidney injury -will decrease BB mildly Discharge diagnosis: Acute kidney injury hypokalemia hyperglycemia Secondary discharge diagnosis: Hypertension CAD history of stroke GERD anemia obstructive sleep apnea Time Spent with Patient Time attestation: Total time spent providing and/or coordinating discharge services: Time spent: Greater than 30 minutes EXAM Constitutional Vitals: Temp Pulse Resp BP Pulse Ox 98.4 F 57 L 18 140/57 97 11/16/19 08:00 11/16/19 08:02 11/16/19 08:00 11/16/19 08:02 11/16/19 08:00 Discharge Data Data Completed and Pending Labs on day of discharge: Labs from last 24 hours 11/16/19 11/16/19 11/16/19 10:51 08:50 08:50 WBC RBC Hgb Hct MCV MCH MCHC RDW Plt Count MPV Gran % Lymph % (Auto) [place] % (Auto) Eos % (Auto) Baso % (Auto) Gran # Lymph # (Auto) [place] # (Auto) Eos # (Auto) Baso # (Auto) Sodium 140 Potassium 2.7 L* Chloride 91 L Carbon Dioxide 31 H Anion Gap 18.0 H BUN 63 H Creatinine 2.3 H GFR Calculation 27 Glucose 293 H Hemoglobin A1c 8.2 H Estim Average Glucose 189 Uric Acid 14.1 H Calcium 9.6 Phosphorus 3.8 Magnesium 2.2 Total Bilirubin 0.9 Direct Bilirubin 0.3 GGT 27 AST 45 H ALT 39 Alkaline Phosphatase 61 Lactate Dehydrogenase 248 Total Protein 7.3 Albumin 4.0 Globulin 3.3 Albumin/Globulin Ratio 1.2 Triglycerides 556 H O & P Trichrome Stain Pending O & P Concentrate Exam Pending 11/15/19 11/15/19 11/15/19 23:40 22:05 22:05 WBC RBC Hgb Hct MCV MCH MCHC RDW Plt Count MPV Gran % Lymph % (Auto) [place] % (Auto) Eos % (Auto) Baso % (Auto) Gran # Lymph # (Auto) [place] # (Auto) Eos # (Auto) Baso # (Auto) Sodium 135 136 Potassium 2.7 L* 2.3 L* Chloride 86 L 85 L Carbon Dioxide 30 32 H Anion Gap 19.0 H 19.0 H BUN 66 H 69 H Creatinine 2.8 H 2.9 H GFR Calculation 22 21 Glucose 367 H 394 H Hemoglobin A1c Estim Average Glucose Uric Acid Calcium 9.3 9.6 Phosphorus Magnesium 1.9 Total Bilirubin 0.9 Direct Bilirubin GGT AST 46 H ALT 39 Alkaline Phosphatase 70 Lactate Dehydrogenase Total Protein 7.5 Albumin 4.0 Globulin 3.5 Albumin/Globulin Ratio 1.1 Triglycerides O & P Trichrome Stain O & P Concentrate Exam 11/15/19 22:05 WBC 10.1 RBC 4.60 L Hgb 13.7 Hct 39.6 L MCV 86.1 MCH 29.8 MCHC 34.6 RDW 14.7 H Plt Count 199 MPV 11.1 H Gran % 77.4 Lymph % (Auto) 7.8 L [place] % (Auto) 13.1 H Eos % (Auto) 1.1 Baso % (Auto) 0.6 Gran # 7.79 Lymph # (Auto) 0.78 L [place] # (Auto) 1.32 H Eos # (Auto) 0.11 Baso # (Auto) 0.06 Sodium Potassium Chloride Carbon Dioxide Anion Gap BUN Creatinine GFR Calculation Glucose Hemoglobin A1c Estim Average Glucose Uric Acid Calcium Phosphorus Magnesium Total Bilirubin Direct Bilirubin GGT AST ALT Alkaline Phosphatase Lactate Dehydrogenase Total Protein Albumin Globulin Albumin/Globulin Ratio Triglycerides O & P Trichrome Stain O & P Concentrate Exam Discharge Plan Patient/Caregiver Discharge Instructions Activity: increase activity as tolerated Diet: Consistent Carbohydrate Prescriptions: New metoprolol succinate 50 mg Tablet Extended Release 24 Hr 75 mg PO BID Qty: 1 RF: 0 Lantus U-100 Insulin 100 unit/mL Solution 55 unit subcut BID Qty: 10 RF: 0 fenofibrate micronized 43 mg Capsule 43 mg PO DAILY Qty: 30 RF: 0 Continued tamsulosin 0.4 mg capsule,extended release 24hr 0.4 mg PO QDAY 30 Days Qty: 30 RF: 1 oxybutynin chloride 5 mg tablet See Rx Instructions PO BID Qty: 90 RF: 1 amoxicillin 500 mg tablet 2,000 mg PO QDAY PRN (Reason: Dental Procedure) RF: 0 pantoprazole [Protonix] 40 mg tablet,delayed release (DR/EC) 40 mg PO QAM RF: 0 furosemide 80 mg tablet 80 mg PO BID RF: 0 duloxetine 60 mg capsule, delayed rel sprinkle 60 mg PO QHS RF: 0 rosuvastatin 10 mg tablet 10 mg PO QHS RF: 0 metoprolol succinate 100 mg tablet extended release 24 hr 100 mg PO BID RF: 0 isosorbide mononitrate 60 mg tablet extended release 24 hr 60 mg PO QAM RF: 0 clonidine HCl 0.1 mg tablet 0.1 mg PO BID RF: 0 ketoconazole 120 ML shampoo 1 applic topical DAILYP PRN (Reason: DERMATITIS?) RF: 0 cholecalciferol (vitamin D3) 5,000 unit capsule 5,000 unit PO QDAY RF: 0 (DME) CPAP Qty: 1 RF: 0 Levemir U-100 Insulin 100 unit/mL solution 48 unit SUB-Q BID RF: 0 ferrous gluconate 324 mg (38 mg iron) tablet 324 mg (38 mg iron) tablet 324 mg PO BID RF: 0 albuterol sulfate 2.5 MG/3 ML solution for nebulization 2.5 mg NEB Q4HP PRN (Reason: Shortness Of Breath) RF: 0 insulin aspart U-100 100 unit/mL solution 25 unit subcut TIDAC RF: 0 gabapentin 300 mg capsule See Rx Instructions .ROUTE .COMPLEX RF: 0 allopurinol 100 mg Tablet 100 mg PO QDAY RF: 0 mometasone 0.1 % Ointment 1 applic TOPICAL QDAY PRN (Reason: Ear Wax) RF: 0 aspirin 81 mg tablet,delayed release (DR/EC) 81 mg PO QDAY RF: 0 nitroglycerin 0.4 mg tablet, sublingual 0.4 mg SUBLINGUAL Q5-15MIN PRN (Reason: Chest Pain) RF: 0 Discontinued metolazone 2.5 mg tablet 2.5 mg PO 3XW Qty: 20 RF: 0 Follow Up Plan Follow up with: Maryanne Brown ARNP [Primary Care Provider] - Fernie Cheung MD [Physician] - Patient Disposition: Home Health Service Prognosis: Fair Discharge Orders: Discharge Order (Routine); Ordered 11/18/19 Ordered By: Jayosn Vuong [facility] VTE Deep Vein Thrombosis/Pulmonary Embolism Present on Admission: No
[2019-11-16] MEDS: GABAPENTIN 300 MG CAPSULE PO SCH ×3 (12:25→20:27)
[2019-11-16] MEDS: SIMETHICONE 80 MG TAB.CHEW CHEWED SCH ×3 (12:33→20:27)
--- NOTE | 2019-11-16 15:38 | Cat Scan Report ---
CLINICAL INFORMATION: Abdominal pain nausea vomiting COMPARISON: Abdomen and pelvic CT 03/11/2019 TECHNIQUE: 0.625 mm helical slices were obtained from the mid heart through the subtrochanteric regions. Following reconstruction, 2.5 mm sagittal, coronal and axial reformatted images were processed and reviewed at bone and soft tissue windows.The exam was performed using radiation dose optimization techniques including, but not limited to, automated exposure control, adjustment of the mA and/or kV according to patient size and use of iterative reconstruction technique. FINDINGS: The lung bases show minimal scattered scarring and/or atelectasis. No effusions. The visualized heart is borderline enlarged. There is moderately heavy calcific plaque in the coronary arteries and also calcification in the aortic valve. Abdominal images show recent cholecystectomy changes . The noncontrasted liver, both kidneys, adrenal glands, spleen and pancreas are normal in size configuration and attenuation without focal lesion. The aorta remains moderately heavy calcific plaque but is normal diameter. Pelvic images moderate dilatation of the prostatic urethra, as previously seen. Prior TURP resection is suspected. Urinary bladder is normal. Multiple sigmoid diverticula appreciated, but no evidence of diverticulitis. The remaining colon, appendix and stomach are normal. Two rimmed calcifications in the anterior false pelvis, 10 and 12 mm respectively, should represent stable old granulomas.. A small periumbilical hernia is stable in size 2.8 cm. Moderate degenerative changes seen in the SI joints. No focal osseous abnormality IMPRESSION: 1. Sigmoid diverticulosis, but no evidence of diverticulitis. 2. Small hiatal hernia - stable 3. cholecystectomy 4. Small periumbilical hernia - stable 5. Dilatation of the prostatic urethra - stable. This likely represents a TURP defect. Interpreted and Authenticated by: Johnie Lawson 11/16/19
[2019-11-16 17:46] LABS: Blood Urea Nitrogen 54 mg/dl (8-23); Calcium 9.4 mg/dl (8.6-10.4); Carbon Dioxide 30 mmol/L (22-30); Glomerular Filtration Rate 26; Glucose 373 mg/dL (70-105)
[2019-11-16 17:52] LABS: Chloride 90 mmol/L (96-108)
[2019-11-16] MEDS: DOCUSATE SODIUM 100 MG CAPSULE PO SCH (20:26)
[2019-11-16] MEDS: SENNOSIDES 1 TABLET PO SCH (20:26)
[2019-11-16] MEDS: cloNIDine HCL 0.1 MG TABLET PO SCH (20:27)
[2019-11-16] MEDS: METOPROLOL SUCCINATE 50 MG TAB.XL.24H PO SCH (20:27)
[2019-11-16] MEDS: OXYBUTYNIN CHLORIDE 5 MG TABLET PO SCH (20:27)
[2019-11-16] MEDS: DULoxetine 30 MG CAPSULE PO SCH (20:28)
[2019-11-16] MEDS: INSULIN GLARGINE, HUMAN 1 UNIT/0.01 ML SQ SCH (20:29)
[2019-11-16] MEDS: ATORVASTATIN 20 MG TABLET PO SCH (20:40)
[2019-11-17] MEDS: INSULIN LISPRO 1 UNIT/0.01 ML UNIT SQ SCH ×10 (00:13→23:52)
[2019-11-17] MEDS: 0.9 % SODIUM CHLORIDE 10 ML SYRINGE IV SCH ×4 (03:55→20:06)
[2019-11-17] MEDS: 0.9 % SODIUM CHLORIDE 1,000 ML IV SCH (04:02)
[2019-11-17 06:49] LABS: Basophils # (Auto) 0.05 K/mcL (0.00-0.30); Basophils % (Auto) 0.6 % (0.0-2.0); Eosinophils # (Auto) 0.44 K/mcL (0.00-0.70); Granulocytes % (Auto) 71.4 % (38.0-78.0); Hematocrit 36.5 % (40.1-51.0); Lymphocytes # (Auto) 0.91 K/mcL (1.50-4.80); Lymphocytes % (Auto) 10.4 % (15.5-49.0); Mean Corpuscular HGB Conc 32.9 g/dL (31.0-36.0); Monocytes % (Auto) 12.6 % (1.0-12.0); Platelet Count 165 K/mcL (140-440); RBC 4.01 M/mcL (4.63-6.08); WBC 8.7 K/mcL (4.50-11.00)
--- NOTE | 2019-11-17 07:13 | Internal Med Progress Note ---
SUBJECTIVE Subjective Patient information: Note initiated : 11/17/19 at 7:10 am Service Date, if different from initiated Date: [] Patient: Neftaly Poon a 73 y/o M admitted on 11/16/19 for Dizziness. Chief Complaint: [] Interval history: History of present illness: Mr. Poon is a 73 year old M Presents to the ED with nausea but no vomiting, upset stomach but no pain, dizziness and lightheadedness. Has been camping lately and has some diarrhea but says he had that before he went on A trip. He describes his diarrhea as every few days with intermittent constipation. Only stools are hard and dark he does take iron and then he will have intermittent episode of the soft dark stool. Last episode of what he calls diarrhea was last night where he was dark and soft, not watery. He started several medications recently about 2 weeks ago and these include clonidine allopurinol and metolazone. He is supposed to see a health information management director up in [place] for some chronic abdominal issues. He states year and a half or so ago he had some issues with bowel blockages and then some bleeding from it. He did have a cholecystectomy in [place] and February. He says his blood sugars typically run 1 20-1 50 but then been elevated the past week and he has been taking his insulin and eating appropriately. Evaluated in ER and found to have potassium of 2.3 with a creatinine of 2.8 with a baseline creatinine around 2. Is also found to be hyperglycemic at 367. Did have a CT brain for dizziness which showed old infarct and some mild atrophy no acute pathology. In the ED was given a potassium and IV fluids. 9/6 Feeling better today. Potassium improved and renal function improved. Still appearing to need some IV fluid today. Review of Systems: denies headache/fever/chills/nausea/vomiting/chest or abdominal pain/cough/dyspnea/diarrhea. Otherwise see above. Constitutional Vitals: Vital Signs Temp Pulse Resp BP Pulse Ox 98.6 F 56 L 16 115/60 96 11/17/19 04:10 11/17/19 04:10 11/17/19 04:10 11/17/19 04:10 11/17/19 04:10 Period Temp Pulse Resp BP Sys/Matos Pulse Ox Last 24 Hr 97.6 F-98.6 F 56-69 12-20 110-156/57-67 95-98 Intake and Output 11/16/19 11/17/19 11/17/19 21:59 05:59 13:59 Intake Total 240 1400 Output Total 1226 700 Balance -986 700 Weight 111.13 kg Intake & Output: Intake & Output 11/16/19 11/17/19 11/17/19 21:59 05:59 13:59 Intake Total 240 1400 Output Total 1226 700 Balance -986 700 Weight 111.13 kg Intake: IV 1000 Sodium Chloride 0.9% 1,000 ml @ 1000 100 mls/hr IV .Q10H DAVID Rx#: [id number] Oral 240 400 Output: Void Amount 1225 700 # of times incontinent of urine 1 Other: Meal Dinner Percent of Meal Consumed 100% Urine Appearance Clear Clear Urine Color Bright Yellow Bright Yellow Exam: General: Alert, Awake, No acute Distress Eyes/N/T: EOMI, Head/Neck: neck supple, CV: RRR, 3/6SM Pulm: Clear b/l, no wheezing/rhonchi/rales Abd: soft, nontender, +BS x4 Ext: no clubbing/cyanosis, trace b/l LE edema Neuro: Alert, no focal deficits, moves all extremities, Skin: warm/dry OBJ DATA Labs CBC & Chem 7: 11/17/19 05:25 11/17/19 07:22 Labs: Abnormal Lab Results 11/17/19 11/16/19 11/16/19 05:25 16:54 08:50 RBC 4.01 L Hgb 12.0 L Hct 36.5 L RDW 15.0 H MPV 11.0 H Lymph % (Auto) 10.4 L [place] % (Auto) 12.6 H Lymph # (Auto) 0.91 L [place] # (Auto) 1.10 H Potassium 3.0 L Chloride 90 L Carbon Dioxide Anion Gap BUN 54 H Creatinine 2.4 H Glucose 373 H Hemoglobin A1c 8.2 H Uric Acid AST Triglycerides 11/16/19 11/15/19 11/15/19 08:50 23:40 22:05 RBC Hgb Hct RDW MPV Lymph % (Auto) [place] % (Auto) Lymph # (Auto) [place] # (Auto) Potassium 2.7 L* 2.7 L* 2.3 L* Chloride 91 L 86 L 85 L Carbon Dioxide 31 H 32 H Anion Gap 18.0 H 19.0 H 19.0 H BUN 63 H 66 H 69 H Creatinine 2.3 H 2.8 H 2.9 H Glucose 293 H 367 H 394 H Hemoglobin A1c Uric Acid 14.1 H AST 45 H 46 H Triglycerides 556 H 11/15/19 22:05 RBC 4.60 L Hgb Hct 39.6 L RDW 14.7 H MPV 11.1 H Lymph % (Auto) 7.8 L [place] % (Auto) 13.1 H Lymph # (Auto) 0.78 L [place] # (Auto) 1.32 H Potassium Chloride Carbon Dioxide Anion Gap BUN Creatinine Glucose Hemoglobin A1c Uric Acid AST Triglycerides Meds: Medications Acetaminophen (Tylenol) 650 mg PO Q6HP PRN PRN Reason: PAIN/FEVER > 101 Albuterol Sulfate (Ventolin) 2.5 mg NEB Q4HP PRN PRN Reason: Shortness Of Breath Albuterol/Ipratropium (Duoneb) 3 ml NEB Q4HP PRN PRN Reason: Shortness Of Breath Aspirin (Aspirin) 81 mg PO DAILY [facility] Atorvastatin Calcium (Lipitor) 20 mg PO [facility] Last Admin: 11/16/19 20:40 Dose: 20 mg Documented by: Clonidine HCl (Catapres) 0.1 mg PO BID [facility] Last Admin: 11/16/19 20:27 Dose: 0.1 mg Documented by: Dextrose (Dextrose 50%) 0 ml IV UD PRN PRN Reason: Hypoglycemia Diagnostic Test (Pha) (Accu-Chek) 1 each FS Q4 [facility] Last Admin: 11/17/19 04:08 Dose: 1 each Documented by: Docusate Sodium (Colace) 100 mg PO BID [facility] Last Admin: 11/16/19 20:26 Dose: 100 mg Documented by: Duloxetine HCl (Cymbalta) 60 mg PO QHS [facility] Last Admin: 11/16/19 20:28 Dose: 60 mg Documented by: Enoxaparin Sodium (Lovenox) 30 mg SQ DAILY [facility] Gabapentin (Neurontin) 300 mg PO TID@0800,1200,1700 [facility] Last Admin: 11/16/19 17:13 Dose: 300 mg Documented by: Gabapentin (Neurontin) 600 mg PO [facility] Last Admin: 11/16/19 20:27 Dose: 600 mg Documented by: Glucose (Insta-Glucose) 15 gm PO PRN PRN PRN Reason: Hypoglycemia Sodium Chloride (Sodium Chloride 0.9%) 1,000 mls @ 100 mls/hr IV .Q10H [facility] Stop: 11/17/19 08:00 Last Admin: 11/17/19 04:02 Dose: 100 mls/hr Documented by: Potassium Chloride 40 meq/ (Dextrose) 520 mls @ 130 mls/hr IV UD PRN PRN Reason: Potassium < 3 Magnesium Sulfate (Magnesium Sulfate) 2 gm in 50 mls @ 50 mls/hr IV UD PRN PRN Reason: Magnesium </= 1.6 Insulin Glargine (Lantus) 48 unit SQ BID [facility] Last Admin: 11/16/19 20:29 Dose: 48 unit Documented by: Insulin Human Lispro (Humalog) 0 unit SQ Q4 [facility]; Protocol Last Admin: 11/17/19 04:12 Dose: 6 unit Documented by: Insulin Human Lispro (Humalog) 25 unit SQ TIDAC [facility] Last Admin: 11/16/19 17:12 Dose: 25 units Documented by: Isosorbide Mononitrate (Imdur) 60 mg PO QAM [facility] Metoclopramide HCl (Reglan) 10 mg IV Q6HP PRN PRN Reason: Nausea And Vomiting Metoprolol Succinate (Toprol Xl) 100 mg PO BID [facility] Last Admin: 11/16/19 20:27 Dose: 100 mg Documented by: Nitroglycerin (Nitrostat) 0.4 mg SL Q5M PRN PRN Reason: Chest Pain Ondansetron HCl (Zofran) 4 mg IV Q6HP PRN PRN Reason: Nausea And Vomiting Last Admin: 11/16/19 01:17 Dose: 4 mg Documented by: Ondansetron HCl (Zofran) 4 mg IV Q4HP PRN PRN Reason: Nausea And Vomiting Oxybutynin Chloride (Ditropan) 5 mg PO DAILY [facility] Oxybutynin Chloride (Ditropan) 10 mg PO HS [facility] Last Admin: 11/16/19 20:27 Dose: 10 mg Documented by: Pantoprazole Sodium (Protonix) 40 mg PO QAM [facility] Polyethylene Glycol (Miralax) 17 gm PO DAILYP PRN PRN Reason: Constipation Potassium Chloride (Kdur) 40 meq PO UD PRN PRN Reason: Potssium is 3-3.5 Potassium Chloride (Kdur) 40 meq PO UD PRN PRN Reason: Potassium < 3 Senna (Senokot) 2 tab PO HS [facility] Last Admin: 11/16/19 20:26 Dose: 2 tab Documented by: Senna (Senokot) 2 tab PO DAILYP PRN PRN Reason: Constipation Simethicone (Mylicon) 80 mg CHEWED PCHS [facility] Last Admin: 11/16/19 20:27 Dose: 80 mg Documented by: Sodium Chloride (Saline Flush) 10 ml IV Q8 [facility] Last Admin: 11/17/19 03:55 Dose: Not Given Documented by: Tamsulosin HCl (Flomax) 0.4 mg PO QDAY [facility] Vitamin D (Vitamin D3) 5,000 unit PO DAILY [facility] A/P Narrative A/P Narrative: A: *Hypokalemia: suspect medication and diarrhea. metabolic disturbance from hyperglycemia/ROBERTO -improving *ROBERTO on CKD III: Prerenal with including diuretics and volume depletion from hyperglycemia -improving with IVF *Intermittent Diarrhea/constipation: *Hyperglycemia, DM w/neuropathy: -A1c 8.2 *HTN/HLD *CAD w/stent: *h/o CVA: *GERD: *Anemia, chronic: *MELI on cpap: P: -IVF -Potassium replacement -Continue home basal insulin and titrate, SSI -stool studies if diarrhea -cont asa/statin -cont clonidine/BB/imdur -hold lasix/metolazone for ROBERTO -home cpap - -pt/ot -ppx:lovenox/home ppi full code Time Spent With Patient Time: Total time spent is greater than 50% in coordination of care (as documented) at patient's floor/unit and/or counseling patient: QUALITY VTE Deep Vein Thrombosis/Pulmonary Embolism Present on Admission: No
[2019-11-17 08:13] LABS: ALT/SGPT 35 U/l (0-40); AST/SGOT 39 U/l (0-37); Albumin 3.3 gm/dL (3.2-5.2); Albumin/Globulin Ratio 1.1 (1.0-2.3); Alkaline Phosphatase 52 U/L (39-117); Bilirubin,Direct < 0.2 mg/dL (0.0-0.3); Bilirubin,Total 0.5 mg/dL (0.0-1.0); Blood Urea Nitrogen 41 mg/dl (8-23); Calcium 9.3 mg/dl (8.6-10.4); Carbon Dioxide 29 mmol/L (22-30); Chloride 98 mmol/L (96-108); Glomerular Filtration Rate 34; Glucose 257 mg/dL (70-105); Lactate Dehydrogenase 194 U/L (94-250); Phosphorous 3.2 mg/dL (2.7-4.5); Triglycerides 378 mg/dl (<150); Uric Acid 10.9 mg/dL (2.5-8.0)
[2019-11-17] MEDS ORDERED: SODIUM CHLORIDE 0.9% IV SCH (10:00)
[2019-11-17] MEDS ORDERED: POTASSIUM CHLORIDE IV SCH (10:00)
[2019-11-17] MEDS ORDERED: FLU VACC QS2020-21(6MOS UP)/PF 60 MCG/0.5 ML SYRINGE IM ONE (10:00)
[2019-11-17] MEDS: INSULIN GLARGINE, HUMAN 1 UNIT/0.01 ML SQ SCH ×2 (10:08→20:06)
[2019-11-17] MEDS: ISOSORBIDE MONONITRATE 60 MG TAB.XL.24H PO SCH (10:17)
[2019-11-17] MEDS: cloNIDine HCL 0.1 MG TABLET PO SCH ×2 (10:17→20:03)
[2019-11-17] MEDS: DOCUSATE SODIUM 100 MG CAPSULE PO SCH ×2 (10:17→20:03)
[2019-11-17] MEDS: SIMETHICONE 80 MG TAB.CHEW CHEWED SCH ×4 (10:17→20:07)
[2019-11-17] MEDS: OXYBUTYNIN CHLORIDE 5 MG TABLET PO SCH ×2 (10:18→20:04)
[2019-11-17] MEDS: TAMSULOSIN 0.4 MG CAPSULE PO SCH (10:18)
[2019-11-17] MEDS: ASPIRIN 81 MG TAB.CHEW PO SCH (10:18)
[2019-11-17] MEDS: GABAPENTIN 300 MG CAPSULE PO SCH ×4 (10:18→20:03)
[2019-11-17] MEDS: ENOXAPARIN 30 MG/0.3 ML SYRINGE SQ SCH (10:19)
[2019-11-17] MEDS: VITAMIN D3 5,000 UNIT CAPSULE PO SCH (10:19)
[2019-11-17] MEDS: PANTOPRAZOLE 40 MG TABLET PO SCH (10:19)
[2019-11-17] MEDS: METOPROLOL SUCCINATE 50 MG TAB.XL.24H PO SCH ×2 (10:19→20:04)
[2019-11-17 11:03] LABS: HDL Cholesterol 26 mg/dl (>40); LDL Cholesterol,Calculated 32 mg/dl (SEE CHART); Non-HDL Cholesterol 106 (LDL TARGET+30); Triglycerides 372 mg/dl (<150)
[2019-11-17] MEDS: FENOFIBRATE 43 MG CAPSULE PO SCH (12:57)
[2019-11-17] MEDS: DULoxetine 30 MG CAPSULE PO SCH (20:03)
[2019-11-17] MEDS: ATORVASTATIN 20 MG TABLET PO SCH (20:04)
[2019-11-17] MEDS: SENNOSIDES 1 TABLET PO SCH (20:04)
[2019-11-18] MEDS: INSULIN LISPRO 1 UNIT/0.01 ML UNIT SQ SCH ×5 (04:17→12:45)
[2019-11-18 07:02] LABS: ALT/SGPT 32 U/l (0-40); AST/SGOT 31 U/l (0-37); Albumin 3.2 gm/dL (3.2-5.2); Albumin/Globulin Ratio 1.2 (1.0-2.3); Alkaline Phosphatase 47 U/L (39-117); Bilirubin,Direct < 0.2 mg/dL (0.0-0.3); Bilirubin,Total 0.5 mg/dL (0.0-1.0); Blood Urea Nitrogen 41 mg/dl (8-23); Calcium 9.6 mg/dl (8.6-10.4); Carbon Dioxide 30 mmol/L (22-30); Chloride 98 mmol/L (96-108); Globulin 2.6 gm/dL (2.2-3.7); Glomerular Filtration Rate 32; Glucose 165 mg/dL (70-105); Lactate Dehydrogenase 185 U/L (94-250); Phosphorous 3.9 mg/dL (2.7-4.5); Uric Acid 10.1 mg/dL (2.5-8.0)
[2019-11-18 07:04] LABS: Triglycerides 342 mg/dl (<150)
[2019-11-18] MEDS: 0.9 % SODIUM CHLORIDE 10 ML SYRINGE IV SCH (08:23)
[2019-11-18] MEDS: FENOFIBRATE 43 MG CAPSULE PO SCH (08:24)
[2019-11-18] MEDS: ASPIRIN 81 MG TAB.CHEW PO SCH (08:24)
[2019-11-18] MEDS: TAMSULOSIN 0.4 MG CAPSULE PO SCH (08:24)
[2019-11-18] MEDS: PANTOPRAZOLE 40 MG TABLET PO SCH (08:24)
[2019-11-18] MEDS: VITAMIN D3 5,000 UNIT CAPSULE PO SCH (08:24)
[2019-11-18] MEDS: ISOSORBIDE MONONITRATE 60 MG TAB.XL.24H PO SCH (08:24)
[2019-11-18] MEDS: SIMETHICONE 80 MG TAB.CHEW CHEWED SCH ×2 (08:24→12:45)
[2019-11-18] MEDS: OXYBUTYNIN CHLORIDE 5 MG TABLET PO SCH (08:25)
[2019-11-18] MEDS: INSULIN GLARGINE, HUMAN 1 UNIT/0.01 ML SQ SCH (08:25)
[2019-11-18] MEDS: cloNIDine HCL 0.1 MG TABLET PO SCH (08:25)
[2019-11-18] MEDS: GABAPENTIN 300 MG CAPSULE PO SCH ×2 (08:25→12:45)
[2019-11-18] MEDS: DOCUSATE SODIUM 100 MG CAPSULE PO SCH (08:25)
[2019-11-18] MEDS: ENOXAPARIN 30 MG/0.3 ML SYRINGE SQ SCH (08:26)
[2019-11-18] MEDS ORDERED: METOPROLOL SUCCINATE 50 MG TAB.XL.24H PO SCH (09:00)
--- NOTE | 2019-11-18 16:31 | Emergency Department Note ---
HPI General Chief complaint: Dizziness Stated complaint: Dizziness Time Seen by Provider: 11/15/19 21:54 Source: patient and family Mode of arrival: wheelchair Limitations: no limitations History of Present Illness HPI Narrative: Narrative: 73 year old presents to the ED with nausea but no vomiting, upset stomach but no pain, dizziness and lightheadedness. Has been camping lately and has some diarrhea but says he had that before he went on A trip. He describes his diarrhea as every few days with intermittent constipation. Only stools are hard and dark he does take iron and then he will have intermittent episode of the soft dark stool. Last episode of what he calls diarrhea was last night where he was dark and soft, not watery. Patient without exacerbating or ameliorating factors for this issue. Time course is gradual continuous worsening. Related Data Home Medications Medication Instructions Recorded Confirmed aspirin 81 mg tablet,delayed 81 mg PO QDAY 01/13/15 11/16/19 release nitroglycerin 0.4 mg sublingual 0.4 mg SUBLINGUAL Q5-15MIN PRN 01/13/15 11/15/19 tablet albuterol sulfate 2.5 mg NEB Q4HP PRN 07/09/17 11/16/19 cholecalciferol (vitamin D3) 125 5,000 unit PO QDAY 11/05/18 11/16/19 mcg (5,000 unit) capsule ketoconazole 2 % shampoo 1 applic TOPICAL DAILYP PRN 11/05/18 11/16/19 amoxicillin 500 mg tablet 2,000 mg PO QDAY PRN tab 02/02/19 11/16/19 furosemide 80 mg tablet 80 mg PO BID 04/02/19 11/16/19 CPAP #1 ea 04/04/19 11/16/19 ferrous gluconate 324 mg (38 mg 324 mg PO BID tab 05/14/19 11/16/19 iron) tablet insulin detemir U-100 100 unit/mL 48 unit SUB-Q BID ml 05/14/19 11/16/19 subcutaneous solution duloxetine 60 mg capsule,delayed 60 mg PO QHS cap 05/27/19 11/16/19 release sprinkle metoprolol succinate 100 mg 100 mg PO BID 05/27/19 11/16/19 tablet,extended release 24 hr rosuvastatin 10 mg tablet 10 mg PO QHS tab 05/27/19 11/16/19 gabapentin 300 mg capsule See Rx Instructions .ROUTE 10/01/19 11/16/19 .COMPLEX cap insulin aspart U-100 100 unit/mL 25 unit SUBCUT TIDAC ml 10/01/19 11/16/19 subcutaneous solution isosorbide mononitrate 60 mg 60 mg PO QAM 10/01/19 11/16/19 tablet,extended release 24 hr pantoprazole 40 mg tablet,delayed 40 mg PO QAM tab 10/01/19 11/16/19 release clonidine HCl 0.1 mg tablet 0.1 mg PO BID tab 10/25/19 11/16/19 allopurinol 100 mg PO QDAY 11/16/19 11/16/19 mometasone 1 applic TOPICAL QDAY PRN 11/16/19 11/16/19 Previous Rx's Medication Instructions Recorded tamsulosin 0.4 mg capsule 0.4 mg PO QDAY 30 Days #30 cap 02/04/15 oxybutynin chloride 5 mg tablet See Rx Instructions PO BID #90 tab 11/08/19 fenofibrate micronized 43 mg PO DAILY #30 cap 11/18/19 insulin glargine [Lantus U-100 55 unit SUBCUT BID #10 ml 11/18/19 Insulin] metoprolol succinate 75 mg PO BID #1 tab 11/18/19 Allergies Allergy/AdvReac Type Severity Reaction Status Date / Time clopidogrel [From PLAVIX] Allergy Mild HIVES Verified 11/16/19 07:39 prasugrel [From Effient] AdvReac Intermediate Nose Bleed Verified 11/16/19 07:39 niacin [NIACIN] AdvReac Mild RASH, Verified 11/16/19 00:39 HIVES WITH HIGH DOSES Review of Systems ROS ROS Narrative: Narrative: All systems ED: reviewed and negative except as stated. [facility] Narrative Patient History Narrative: Narrative: Medical/Surgical/Family History All Active Problems (Updated 11/18/19 @ 16:31 by Bismark Salgado MD) Acute hypokalemia (Acute) Diabetes (Acute) Hypertension in stage 3 chronic kidney disease due to type 2 diabetes mellitus (Acute) GIB (gastrointestinal bleeding) (Acute) Cholecystitis (Acute) Nausea, vomiting, and diarrhea (Acute) Abdominal pain (Acute) Hypokalemia (Acute) Hypomagnesemia (Acute) Lower GI bleed (Acute) Dysphagia (Chronic) History of tobacco use (Chronic) Low back strain (Acute) Facial paresthesia (Acute) Paresthesia of left foot (Acute) care home (current) use of anticoagulants (Chronic) Obesity (BMI 30-39.9) (Chronic) Stroke (Chronic) Paroxysmal atrial fibrillation (Chronic) Atrial fibrillation (Chronic) Chronic diastolic heart failure (Chronic) Hypertensive heart disease with heart failure (Chronic) 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) Hypertension, essential (Chronic) Diabetes mellitus type 2, controlled, without complications (Chronic) CKD (chronic kidney disease), stage III (Chronic) Aortic valve disorder (Chronic) MELI (obstructive sleep apnea) (Chronic) Dermatofibroma of lower leg (Chronic) Hypoxemia (Chronic) Plantar warts (Chronic) Cholelithiasis (Chronic) Anemia (Acute) Hyperlipemia (Chronic) Dyspnea (Chronic) Chest heaviness (Chronic) Esophageal stricture (Chronic) care home (current) use of aspirin (Chronic) care home (current) use of insulin (Chronic) Thoracic back pain (Chronic) Pure hypercholesterolemia (Chronic) Male urinary stress incontinence (Chronic) Endogenous obesity (Chronic) Incontinence (Chronic) Depression (Chronic) Asthma (Chronic) Hypercholesterolemia (Chronic) Obstructive nephropathy (Chronic) Insomnia (Chronic) BPH with urinary obstruction (Chronic) Vitamin D deficiency (Chronic) Overactive bladder (Chronic) Gastroesophageal reflux (Chronic) Cervicalgia (Chronic) Benign prostatic hyperplasia with lower urinary tract symptoms (Chronic 10/16/13) Medical History (Updated 11/18/19 @ 16:31 by Bismark Salgado MD) Acute kidney injury superimposed on CKD (Resolved) Acute on chronic renal failure (Resolved) Acute renal failure (Resolved) Anemia (Acute) Aortic valve disorder (Chronic) Asthma (Chronic) Atrial fibrillation (Chronic) Atypical chest pain (Resolved) Benign paroxysmal positional vertigo (Resolved) Benign prostatic hyperplasia with lower urinary tract symptoms (Chronic 10/16/13) Bicuspid aortic valve (Chronic) history of BPH with urinary obstruction (Chronic) Cervicalgia (Chronic) Chest heaviness (Chronic) Cholelithiasis (Chronic) Chronic diastolic heart failure (Chronic) CKD (chronic kidney disease), stage III (Chronic) Constipation (Resolved) Depression (Chronic) Dermatofibroma of lower leg (Chronic) Diabetes mellitus type 2, controlled, without complications (Chronic) Dysphagia (Chronic) Dyspnea (Chronic) Endogenous obesity (Chronic) Esophageal stricture (Chronic) Gastroesophageal reflux (Chronic) Generalized abdominal pain (Resolved) GI bleed (Resolved) History of coronary angiogram (Acute) 11/2013 and 02/02/2015 per patient. 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 (Chronic) care home (current) use of insulin (Chronic) Lower GI bleed (Resolved) Male urinary stress incontinence (Chronic) Obesity (BMI 30-39.9) (Chronic) Obstructive nephropathy (Chronic) MELI (obstructive sleep apnea) (Chronic) Overactive bladder (Chronic) Paroxysmal atrial fibrillation (Chronic) Plantar fasciitis of right foot (Resolved) Plantar wart (Resolved) Plantar warts (Chronic) PNA (pneumonia) (Resolved) Pure hypercholesterolemia (Chronic) Right-sided chest pain (Resolved) Stroke (Chronic) Thoracic back pain (Chronic) 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) Vitamin D deficiency (Chronic) Wheezing (Resolved) Surgical History H/O aortic valve replacement with porcine valve (Chronic 02/23/15) History of cataract surgery (Chronic ~2014) History of repair of hiatal hernia (Chronic ~1990) Stents 1994, 2004, 1990, 2012 History of surgery (Chronic) Bone spur fascitis release right foot History of surgery (Chronic) Removed tarsal nerve History of transurethral resection of prostate (Chronic ~2015) Hx of colonoscopy (Chronic 04/27/16) 2001 Hx of foot surgery (Chronic) right Hx of shoulder surgery (Chronic) 2003 right, left in 1973 Hx of tonsillectomy (Chronic ~1960) Status post right foot surgery (Chronic 07/17/08) bone spur and plantar fasciitis release, removal of tarsal nerve Family History none listed Depression Type 2 diabetes mellitus Hypercholesterolemia Hypertension Acute myocardial infarction Father , age 88 H/O heart bypass surgery Depression Type 2 diabetes mellitus Hypercholesterolemia Hypertension Acute myocardial infarction High cholesterol Mother , age 84 Heart disease History of angina Hypertension High cholesterol History of diabetes mellitus Depression Social History Smoking Status: Former smoker Alcohol Intake Frequency: does not drink Substance Use: does not use Exam Narrative Narrative: General: Alert, interactive, appropriate Head: Atraumatic, normocephalic Eyes: Extraocular movements intact, sclera anicteric, no conjunctival injection Ears: Pinnae normal, no discharge Mouth: Oral mucosa moist, no acute swelling or evidence of infection Nares: No nasal discharge, patent bilaterally Neck: Trachea midline, full range of motion Chest: Symmetrical chest wall rise, breathing normally; nonlabored respirations Cardiovascular: Patient with excellent perfusion to the extremities; with bradycardia Skin: Patient without area of erythema, patient is without rash, no ascending lymphangitis or lymphadenopathy Extremities: Full range of motion joints, no obvious deformities Neuro: Alert, oriented x3, cranial nerves II through XII grossly intact, patient without lateralizing findings such as weakness, or abnormal reflexes Psychiatric: Normal affect, normal mood General Limitations: no limitations Course Vital Signs Vital signs: Vital Signs Pulse Rate 81 11/15/19 20:41 Respiratory Rate 20 11/15/19 20:41 Blood Pressure 120/64 11/15/19 20:41 Pulse Oximetry (%) 96 11/15/19 20:41 Temperature 97.7 F 11/18/19 12:00 Pulse Rate 50 L 11/18/19 12:00 Respiratory Rate 20 11/18/19 12:00 Blood Pressure 123/55 11/18/19 12:00 Pulse Oximetry (%) 98 11/18/19 12:00 [facility] Narrative Medical decision making narrative: Narrative: 73-year-old male presenting to the emergency department chief complaint of progressive diarrhea on laboratory evaluation noted to have significant hypo kalemia. Patient given K rider as well as 80 mEq of potassium p.o. Patient had EKG as well as cardiac monitoring which did not demonstrate significant arrhythmia. Secondary to significant Jose R low potassium discussed case with the hospitalist Dr. Miranda the consensus medical opinion is to admit the patient for potassium repletion as well as monitoring for arrhythmia or other effects of having extremely low potassium. Lab Data Result diagrams: 11/17/19 05:25 11/18/19 05:25 Labs: Lab Results 11/15/19 11/15/19 11/15/19 Range/Units 22:05 22:05 22:05 WBC 10.1 (4.50-11.00) K/mcL RBC 4.60 L (4.63-6.08) M/mcL Hgb 13.7 (13.7-17.5) g/dL Hct 39.6 L (40.1-51.0) % MCV 86.1 (80.0-100.0) fL MCH 29.8 (26.0-34.0) pg MCHC 34.6 (31.0-36.0) g/dL RDW 14.7 H (11.5-14.5) % Plt Count 199 (140-440) K/mcL MPV 11.1 H (7.4-10.4) fL Gran % 77.4 (38.0-78.0) % Lymph % (Auto) 7.8 L (15.5-49.0) % [place] % (Auto) 13.1 H (1.0-12.0) % Eos % (Auto) 1.1 (0.0-7.0) % Baso % (Auto) 0.6 (0.0-2.0) % Gran # 7.79 (1.80-8.00) K/mcL Lymph # (Auto) 0.78 L (1.50-4.80) K/mcL [place] # (Auto) 1.32 H (0.10-0.90) K/mcL Eos # (Auto) 0.11 (0.00-0.70) K/mcL Baso # (Auto) 0.06 (0.00-0.30) K/mcL Sodium 136 (133-145) mmol/L Potassium 2.3 L* (3.3-5.1) mmol/L Chloride 85 L (96-108) mmol/L Carbon Dioxide 32 H (22-30) mmol/L Anion Gap 19.0 H (8-16) BUN 69 H (8-23) mg/dl Creatinine 2.9 H (0.7-1.2) mg/dl GFR Calculation 21 Glucose 394 H (70-105) mg/dL Calcium 9.6 (8.6-10.4) mg/dl Magnesium 1.9 (1.6-2.5) mg/dL Total Bilirubin 0.9 (0.0-1.0) mg/dL AST 46 H (0-37) U/l ALT 39 (0-40) U/l Alkaline Phosphatase 70 (39-117) U/L Total Protein 7.5 (5.9-8.4) gm/dL Albumin 4.0 (3.2-5.2) gm/dL Globulin 3.5 (2.2-3.7) gm/dL Albumin/Globulin Ratio 1.1 (1.0-2.3) 11/15/19 Range/Units 23:40 WBC (4.50-11.00) K/mcL RBC (4.63-6.08) M/mcL Hgb (13.7-17.5) g/dL Hct (40.1-51.0) % MCV (80.0-100.0) fL MCH (26.0-34.0) pg MCHC (31.0-36.0) g/dL RDW (11.5-14.5) % Plt Count (140-440) K/mcL MPV (7.4-10.4) fL Gran % (38.0-78.0) % Lymph % (Auto) (15.5-49.0) % [place] % (Auto) (1.0-12.0) % Eos % (Auto) (0.0-7.0) % Baso % (Auto) (0.0-2.0) % Gran # (1.80-8.00) K/mcL Lymph # (Auto) (1.50-4.80) K/mcL [place] # (Auto) (0.10-0.90) K/mcL Eos # (Auto) (0.00-0.70) K/mcL Baso # (Auto) (0.00-0.30) K/mcL Sodium 135 (133-145) mmol/L Potassium 2.7 L* (3.3-5.1) mmol/L Chloride 86 L (96-108) mmol/L Carbon Dioxide 30 (22-30) mmol/L Anion Gap 19.0 H (8-16) BUN 66 H (8-23) mg/dl Creatinine 2.8 H (0.7-1.2) mg/dl GFR Calculation 22 Glucose 367 H (70-105) mg/dL Calcium 9.3 (8.6-10.4) mg/dl Magnesium (1.6-2.5) mg/dL Total Bilirubin (0.0-1.0) mg/dL AST (0-37) U/l ALT (0-40) U/l Alkaline Phosphatase (39-117) U/L Total Protein (5.9-8.4) gm/dL Albumin (3.2-5.2) gm/dL Globulin (2.2-3.7) gm/dL Albumin/Globulin Ratio (1.0-2.3) Discharge Plan Patient/Caregiver Discharge Instructions Pt seen by ANGIOGRAPHY NURSE/PA only: No Clinical Impression: Acute hypokalemia, Diabetes Activity: increase activity as tolerated Patient Disposition: Xfer As Inpt ([facility]) Condition: Fair Discharge Date/Time: 11/16/19 00:07
== END 2019-11-18 13:12 | disposition home or self-care (01) | DRG 641 ==
LOC: ED 20:41 → MEDSUR 11-16 00:07
PROVIDERS: ADMIT Internal Medicine; ATTEND Internal Medicine

== ENCOUNTER 2020-06-30 15:35 | Inpatient (IN) ==
--- NOTE | 2020-06-30 16:00 | Emergency Department Note ---
SOB HPI General Chief Complaint: Shortness of Breath/Dyspnea Stated Complaint: shortness of breath, lower leg edema Time Seen by Provider: 06/30/20 15:38 Source: patient Mode of arrival: wheelchair Limitations: no limitations History of Present Illness HPI Narrative: Narrative: Neftaly is a 74-year-old male who comes to the emergency department after he consulted with his primary care provider regarding worsening shortness of breath over the last 3 days. He reports that he sleeps upright in a recliner which is typically helpful as well as wearing his CPAP but he has been experiencing orthopnea and paroxysmal nocturnal dyspnea. He is here today with his who is helping to provide history for him. He states that a few days ago he had been experiencing some chest pain that was substernal radiating into his left arm but he is chest pain-free today in the emergency department. Is not in much distress and is not diaphoretic but he is hypoxic on room air saturating into the 80s but returns to normal baseline of the mid 90 on 2 L by nasal cannula. He does not report any history of COPD and he and his do not recall a former history of congestive heart failure but the patient does take a significant dose of Lasix of 80 mg twice per day and the patient reports to me that he has had a 20 pound weight gain in the last week as well as worsening lower extremity edema. Recently he had surgery to remove neuromas on both his left and right feet. There are minor surgical incisions located at plantar aspect that appear to be healing well with good granulation tissue. There is mild purulent drainage coming from the incision of the left foot but the patient was just recently started on Keflex for treatment of cellulitis. The foot is not hot to the touch nor is there any pain with passive movement of the feet bilaterally. He does have an extensive past medical history of acute coronary syndrome that involves multiple stent placements. He does not recall any history of abdominal aorta or thoracic aorta. No history of pulmonary embolism. Reports to me that he is never had to have fluid drained from his abdomen. No history of recent travel, exposure to sick persons, cough or productive sputum. Both he and his have received Covid vaccines this year. Neftaly has no other complaints today in the emergency department. No other modifying factors. Related Data Home Medications Medication Instructions Recorded Confirmed aspirin 81 mg tablet,delayed 81 mg PO QDAY 01/13/15 06/30/20 release nitroglycerin 0.4 mg sublingual 0.4 mg SUBLINGUAL Q5-15MIN PRN 01/13/15 06/30/20 tablet cholecalciferol (vitamin D3) 125 5,000 unit PO QDAY 11/05/18 06/30/20 mcg (5,000 unit) capsule ketoconazole 2 % shampoo 1 applic TOPICAL DAILYP PRN 11/05/18 06/30/20 furosemide 80 mg tablet 80 mg PO BID 04/02/19 06/30/20 CPAP #1 ea 04/04/19 06/30/20 rosuvastatin 10 mg tablet 10 mg PO QHS tab 05/27/19 06/30/20 gabapentin 300 mg capsule See Rx Instructions .ROUTE 10/01/19 06/30/20 .COMPLEX cap mometasone 1 applic TOPICAL QDAY PRN 11/16/19 06/30/20 isosorbide mononitrate 30 mg 30 mg PO QAM 12/02/19 06/30/20 tablet,extended release 24 hr metoprolol succinate 50 mg 75 mg PO BID tab 12/02/19 06/30/20 tablet,extended release 24 hr fenofibrate nanocrystallized 48 mg 48 mg PO QDAY 12/03/19 06/30/20 tablet clonidine HCl 0.1 mg tablet 0.1 mg PO BID tab 12/31/19 06/30/20 insulin regular hum U-500 conc See Rx Instructions SUB-Q TIDWMEAL 03/27/20 06/30/20 ml cephalexin 500 mg capsule 1,000 mg PO BID 06/30/20 indomethacin PO 06/30/20 06/30/20 Previous Rx's Medication Instructions Recorded ferrous gluconate 324 mg (37.5 mg 324 mg PO QDAY #90 tab 12/02/19 iron) tablet duloxetine 60 mg capsule,delayed 60 mg PO QHS #30 cap 04/07/20 release sprinkle pantoprazole 40 mg tablet,delayed 40 mg PO BID #60 tab 04/07/20 release spironolactone 25 mg tablet 25 mg PO QDAY #30 tab 04/30/20 tolterodine 4 mg capsule,extended 4 mg PO QDAY 180 Days #180 cap 05/01/20 release 24 hr oxybutynin chloride 5 mg 10 mg PO QDAY #60 tab 05/11/20 tablet,extended release 24 hr allopurinol 100 mg tablet 150 mg PO QDAY #135 tab 06/29/20 Allergies Allergy/AdvReac Type Severity Reaction Status Date / Time clopidogrel [From PLAVIX] Allergy Mild HIVES Verified 06/30/20 15:41 prasugrel [From Effient] AdvReac Intermediate Nose Bleed Verified 06/30/20 15:41 niacin [NIACIN] AdvReac Mild RASH, Verified 06/30/20 15:41 HIVES WITH HIGH DOSES Review of Systems ROS ROS Narrative: Narrative: All systems ED: reviewed and negative except as stated. 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) CKD (chronic kidney disease) stage 4, GFR 15-29 ml/min (Chronic) Localized edema due to fluid overload (Chronic) TIA (transient ischemic attack) (Acute) Dysphagia (Chronic) History of tobacco use (Chronic) Facial paresthesia (Acute) Paresthesia of left foot (Acute) Stroke (Chronic) Paroxysmal atrial fibrillation (Chronic) Chronic diastolic heart failure (Chronic) Hypertensive heart disease with heart failure (Chronic) Aortic valve disorder (Chronic) MELI (obstructive sleep apnea) (Chronic) Dermatofibroma of lower leg (Chronic) Plantar warts (Chronic) Dyspnea (Chronic) Esophageal stricture (Chronic) 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) Thoracic back pain (Chronic) Pure hypercholesterolemia (Chronic) Male urinary stress incontinence (Chronic) Incontinence (Chronic) Depression (Chronic) Asthma (Chronic) Obstructive nephropathy (Chronic) Insomnia (Chronic) BPH with urinary obstruction (Chronic) Vitamin D deficiency (Chronic) Overactive bladder (Chronic) Gastroesophageal reflux (Chronic) Cervicalgia (Chronic) Benign prostatic hyperplasia with lower urinary tract symptoms (Chronic 10/16/13) Medical History (Updated 06/30/20 @ 19:03 by Ramez Liu PA-C) Acute kidney injury superimposed on CKD Acute on chronic renal failure Acute renal failure Anemia Aortic valve disorder Asthma Atypical chest pain Benign paroxysmal positional vertigo Benign prostatic hyperplasia with lower urinary tract symptoms (10/16/13) Trial of 2 to 3 days off of tamsulosin and if no change in voiding pattern stay off of it Bicuspid aortic valve history of BPH with urinary obstruction Cervicalgia Chest heaviness Cholelithiasis Chronic diastolic heart failure Constipation Depression Dermatofibroma of lower leg Diabetes mellitus with neuropathy Dysphagia Dyspnea Esophageal stricture Gastroesophageal reflux Generalized abdominal pain GI bleed History of coronary angiogram 11/2013 and 02/02/2015 per patient. 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 Lower GI bleed Male urinary stress incontinence Morbid obesity due to excess calories Obstructive nephropathy MELI (obstructive sleep apnea) Overactive bladder Paroxysmal atrial fibrillation Plantar fasciitis of right foot Plantar wart Plantar warts PNA (pneumonia) Pure hypercholesterolemia Right-sided chest pain Stroke Thoracic back pain Vitamin D deficiency Wheezing Surgical History H/O aortic valve replacement H/O aortic valve replacement with porcine valve (02/23/15) History of cataract surgery (~2014) History of cholecystectomy History of repair of hiatal hernia (~1990) Stents 1994, 2004, 1990, 2012 History of surgery Bone spur fascitis release right foot History of surgery Removed tarsal nerve History of transurethral resection of prostate (~2015) Hx of colonoscopy (04/27/16) 2002 Hx of foot surgery right Hx of shoulder surgery 2003 right, left in 1973 Hx of tonsillectomy (~1960) Status post right foot surgery (07/17/08) bone spur and plantar fasciitis release, removal of tarsal nerve Family History none listed Depression Type 2 diabetes mellitus Hypercholesterolemia Hypertension Acute myocardial infarction Father , age 88 H/O heart bypass surgery Depression Type 2 diabetes mellitus Hypercholesterolemia Hypertension Acute myocardial infarction High cholesterol Mother , age 84 Heart disease History of angina Hypertension High cholesterol History of diabetes mellitus Depression Social History Smoking Status: Former smoker Alcohol Intake Frequency: a few times a week Substance Use: does not use Exam Narrative Narrative: Narrative: General Limitations: no limitations General appearance: Present alert Head Head: Present atraumatic, normocephalic and normal inspection Eye Eye: Present normal appearance, PERRL and EOMI ENT ENT: Present normal exam, normal oropharynx and mucous membranes moist Neck Neck: Present normal inspection, full ROM and trachea midline Chest Chest: Present normal inspection and symmetric chest wall rise Respiratory Respiratory: Present rales/crackles (Crackles ausculated in the lung bases bila terally.) Cardiovascular Cardiovascular: Present regular rate, normal rhythm and normal heart sounds Adbominal Abdominal: Present soft, distention and other (No masses. Abominal wall hernia that is located near the umbilicus and reducable.) Extremities Extremities: Present normal capillary refill, pedal edema and other (+2 bilateral lower extremity edema.) Back Back: Present normal inspection Neurological Neurological: Present alert and oriented X3 Psychiatric Psychiatric: Present normal affect and normal mood Skin Skin: Present warm (WNL), dry and normal color Course Course Course Narrative: 1557: Patient presents with history and clinical exam findings that are more suggestive at this time of a congestive heart failure exacerbation. EKG, chest x-ray, basic labs, BNP, troponin have been ordered for further evaluation. Patient currently is not experiencing any chest pain but did state that he had some discomfort earlier in the week. He does not appear in distress in the room. Patient is reporting symptoms of orthopnea and PND. Very little to low suspicion for upper respiratory infection as the patient is not presenting with any fever, sputum changes, and has recently been vaccinated against SARS-CoV-2. EKG on my read shows normal sinus rhythm 60 bpm, no evidence of any hyperacute T wave, no ST segments that are concerning for infarction or ischemia. 1617: Chest x-ray as dictated by radiologist shows stable cardiomegaly with no evidence of pleural effusion but the patient does have new vascular congestion suggesting mild exacerbation of congestive heart failure. 1732: Labs have been reviewed and the patient does have evidence of worsening kidney function as he is historically tween 2 and 3 for his creatinine but now presents with a creatinine of 3.7 which is likely why he cannot diurese correctly at home. Patient also has a BNP of 22,000 and is hypoxic when not on oxygen in the emergency department. It is unlikely that we are going to be able to diurese the patient enough in the emergency department to get him to stable so we will talk with the hospitalist about admission for acute on chronic CHF exacerbation. The patient does have a detectable troponin of 0.04 but in the absence of chest pain in the emergency department with an unimpressive EKG this is likely due to cardiorenal syndrome. Vital Signs Vital signs: Vital Signs Temperature 97.2 F 06/30/20 15:37 Pulse Rate 66 06/30/20 15:37 Respiratory Rate 14 06/30/20 15:37 Pulse Oximetry (%) 85 L 06/30/20 15:37 Temperature 97.2 F 06/30/20 15:37 Pulse Rate 59 L 06/30/20 18:46 Respiratory Rate 19 06/30/20 18:46 Blood Pressure 169/80 06/30/20 18:46 Pulse Oximetry (%) 94 06/30/20 18:46 MDM MDM Narrative Medical decision making narrative: Narrative: 74-year-old male reports to the emergency department with worsening shortness of breath, lower extremity edema, 20 pound weight gain, orthopnea, and PND. Patient has history significant for chronic congestive heart failure and is on a high dose of Lasix at home but has not been able to diurese correctly due to poor kidney function. Patient did have detectable troponin likely due to cardiorenal syndrome, BNP of 22,000, creatinine of 3.7 which is historically high for him. Patient is hypoxic desaturating into the low 80s so he was kept on 2 L of oxygen by nasal cannula. 80 mg of IV Lasix were initiated for diureses. Patient discussed with attending emergency room physician. Patient admitted to the hospitalist for acute on chronic congestive heart failure with hypoxia. Assessment: Acute on chronic congestive heart failure. Hypoxia. Treatment: Patient diuresed in the emergency department with 80 mg of IV Lasix. Hospital admission. Lab Data Result diagrams: 06/30/20 15:49 06/30/20 15:49 Labs: Lab Results 06/30/20 06/30/20 06/30/20 Range/Units 15:49 15:49 15:49 WBC 8.8 (4.5-11.0) K/mcL RBC 3.52 L (4.50-5.90) M/mcL Hgb 10.3 L (13.5-16.5) g/dL Hct 33.0 L (41.0-55.0) % MCV 93.8 (80.0-100.0) fL MCH 29.3 (26.0-34.0) pg MCHC 31.2 (31.0-36.0) g/dL RDW 15.0 H (11.5-14.5) % Plt Count 178 (140-440) K/mcL MPV 10.7 H (7.4-10.4) fL Neut % (Auto) 79.6 H (38.0-78.0) % Lymph % (Auto) 5.6 L (15.0-49.0) % Mclennan % (Auto) 12.2 H (1.0-12.0) % Eos % (Auto) 2.1 (0.0-7.0) % Baso % (Auto) 0.5 (0.0-2.0) % Lymph # (Auto) 0.49 L (1.50-4.80) K/mcL Mclennan # (Auto) 1.07 H (0.10-0.90) K/mcL Eos # (Auto) 0.18 (0.00-0.70) K/mcL Baso # (Auto) 0.04 (0.00-0.20) K/mcL Absolute Neutrophils 7.00 (1.80-8.00) K/mcL Sodium 137 (133-145) mmol/L Potassium 4.3 (3.3-5.1) mmol/L Chloride 102 (96-108) mmol/L Carbon Dioxide 23 (22-30) mmol/L Anion Gap 12.0 (8.0-16.0) BUN 71 H (8-23) mg/dL Creatinine 3.7 H (0.7-1.2) mg/dL GFR Calculation 15 Glucose 279 H (70-105) mg/dL Calcium 9.3 (8.6-10.4) mg/dL Total Bilirubin 0.7 (0.1-1.0) mg/dL AST 17 (<40) U/L ALT 15 (<40) U/L Alkaline Phosphatase 57 (39-117) U/L Troponin T 0.04 H* (<0.03) ng/mL NT-Pro-B Natriuret Pep 31149.0 H (<125.0) pg/mL Total Protein 7.2 (5.9-8.4) gm/dL Albumin 3.3 (3.2-5.2) gm/dL Globulin 3.9 H (2.2-3.7) gm/dL Albumin/Globulin Ratio 0.8 L (1.0-2.3) Discharge Plan Patient/Caregiver Discharge Instructions Pt seen by M[employer] TOUR GUIDE/PA only: Yes (Patient discussed with Dr. Taveras.) Clinical Impression: Acute on chronic congestive heart failure, Hypoxia Activity: increase activity as tolerated Instructions: Heart Failure (ED) Patient Disposition: Xfer As Inpt ([facility]) Condition: Fair Follow up with: Morris Cavanaugh MD [Primary Care Provider] - Prescriptions: No Action fenofibrate nanocrystallized 48 mg tablet 48 mg PO QDAY RF: 0 Humulin R U-500 (Conc) Kwikpen 500 unit/mL (3 mL) insulin pen See Rx Instructions SUB-Q TIDWMEAL RF: 0 pantoprazole [Protonix] 40 mg tablet,delayed release (DR/EC) 40 mg PO BID Qty: 60 RF: 3 duloxetine 60 mg capsule, delayed rel sprinkle 60 mg PO QHS Qty: 30 RF: 3 spironolactone 25 mg tablet 25 mg PO QDAY Qty: 30 RF: 4 oxybutynin chloride 5 mg tablet extended release 24hr 10 mg PO QDAY Qty: 60 RF: 4 allopurinol 100 mg tablet 150 mg PO QDAY Qty: 135 RF: 3 cephalexin 500 mg capsule 1,000 mg PO BID RF: 0 indomethacin PO RF: 0 furosemide 80 mg tablet 80 mg PO BID RF: 0 rosuvastatin 10 mg tablet 10 mg PO QHS RF: 0 clonidine HCl 0.1 mg tablet 0.1 mg PO BID RF: 0 metoprolol succinate 50 mg tablet extended release 24 hr 75 mg PO BID RF: 0 isosorbide mononitrate 30 mg tablet extended release 24 hr 30 mg PO QAM RF: 0 ferrous gluconate 324 mg (37.5 mg iron) tablet 324 mg PO QDAY Qty: 90 RF: 4 ketoconazole 120 ML shampoo 1 applic topical DAILYP PRN (Reason: DERMATITIS?) RF: 0 cholecalciferol (vitamin D3) 5,000 unit capsule 5,000 unit PO QDAY RF: 0 (DME) CPAP Qty: 1 RF: 0 gabapentin 300 mg capsule See Rx Instructions .ROUTE .COMPLEX RF: 0 mometasone 0.1 % Ointment 1 applic TOPICAL QDAY PRN (Reason: Ear Wax) RF: 0 aspirin 81 mg tablet,delayed release (DR/EC) 81 mg PO QDAY RF: 0 nitroglycerin 0.4 mg tablet, sublingual 0.4 mg SUBLINGUAL Q5-15MIN PRN (Reason: Chest Pain) RF: 0 tolterodine [Detrol LA] 4 mg capsule,extended release 24hr 4 mg PO QDAY 180 Days Qty: 180 RF: 0
--- NOTE | 2020-06-30 16:15 | XRay Report ---
HISTORY: Increasing shortness of breath with swelling in the legs FINDINGS: The heart is mildly enlarged. There is pulmonary vascular congestion and mild generalized pulmonary edema. Lung volumes are normal. No pleural effusion is present. There are sternal wires. Comparison with the prior exam from 06/28/20 shows the cardiomegaly is stable but the pulmonary vascular congestion is new. IMPRESSION: Mild congestive heart failure Interpreted and Authenticated by: Manolo Rosales 06/30/20
[2020-06-30 16:49] LABS: Basophils # (Auto) 0.04 K/mcL (0.00-0.20); Basophils % (Auto) 0.5 % (0.0-2.0); Eosinophils # (Auto) 0.18 K/mcL (0.00-0.70); Eosinophils % (Auto) 2.1 % (0.0-7.0); Hemoglobin 10.3 g/dL (13.5-16.5); Lymphocytes # (Auto) 0.49 K/mcL (1.50-4.80); Lymphocytes % (Auto) 5.6 % (15.0-49.0); Mean Cell Volume 93.8 fL (80.0-100.0); Mean Corpuscular HGB Conc 31.2 g/dL (31.0-36.0); Mean Platelet Volume 10.7 fL (7.4-10.4); Monocytes # (Auto) 1.07 K/mcL (0.10-0.90); Monocytes % (Auto) 12.2 % (1.0-12.0); Neutrophils % (Auto) 79.6 % (38.0-78.0); Platelet Count 178 K/mcL (140-440); RBC 3.52 M/mcL (4.50-5.90); WBC 8.8 K/mcL (4.5-11.0)
[2020-06-30 17:20] LABS: ALT/SGPT 15 U/L (<40); AST/SGOT 17 U/L (<40); Albumin 3.3 gm/dL (3.2-5.2); Albumin/Globulin Ratio 0.8 (1.0-2.3); Alkaline Phosphatase 57 U/L (39-117); Bilirubin,Total 0.7 mg/dL (0.1-1.0); Blood Urea Nitrogen 71 mg/dL (8-23); Calcium 9.3 mg/dL (8.6-10.4); Carbon Dioxide 23 mmol/L (22-30); Chloride 102 mmol/L (96-108); Globulin 3.9 gm/dL (2.2-3.7); Glomerular Filtration Rate 15; Glucose 279 mg/dL (70-105)
[2020-06-30] MEDS ORDERED: FUROSEMIDE 100 MG/10 ML VIAL IV ONE (17:30)
[2020-06-30 19:42] LABS: Appearance,Urine HAZY (Clear); Bilirubin,Urine Negative (Negative); Color,Urine YELLOW; Culture Indicated,Urine No; Glucose,Urine (UA) Negative (Negative); Ketones,Urine Negative (Negative); Leukocyte Esterase,Urine Negative /ug (Negative); Mucus,Urine FEW /hpf; Nitrate,Urine Negative (Negative); Protein,Urine 30 mg/dL (Negative); Urine Amorphous Crystals FEW /hpf; Urine Blood 0.03 mg/dL (Negative); Urine RBC 1 /hpf (0-3); Urine Squamous Epithelial Cell 0 /hpf (0-4); Urine WBC < 1 /hpf (0-4)
[2020-06-30] MEDS ORDERED: morphine 2 MG/ML VIAL IV PRN (20:08)
[2020-06-30] MEDS ORDERED: NITROGLYCERIN 0.4 MG TAB.SUBL SL PRN ×2 (20:08→21:22)
[2020-06-30] MEDS ORDERED: DEXTROSE 31 GM ORAL.SUSP PO PRN ×2 (20:09→21:22)
[2020-06-30] MEDS ORDERED: DEXTROSE 50% 50 ML VIAL IV PRN ×2 (20:09→21:22)
--- NOTE | 2020-06-30 20:16 | Internal Med History&Physical ---
HPI History of Present Illness Patient information: Note initiated : 06/30/20 at 8:15 pm Service Date, if different from initiated Date: [] Patient: Neftaly Poon a 74 y/o M admitted on for shortness of breath, lower leg edema. Chief Complaint: [SOB, leg swelling, abdominal pain with radiation to the chest wall] History of present illness: Mr. Poon is a 74 year old M history of CAD status post 8 cardiac stents placement, obstructive sleep apnea on CPAP, type 2 diabetes mellitus insulin dependent, congestive heart failure, gout, sigmoid diverticulosis, cholecystitis status post cholecystectomy, presenting with 1 month history of shortness of breath, bilateral leg swelling, 20 pounds of unintentional weight gain in 3 days, left lower quadrant abdominal chest pain with radiation to the left upper quadrant as well as left-sided chest wall int ermittently. He presented to our ED 2 days ago for similar symptoms but he was being discharged home from the ED. He is complaining of shortness of breath, dyspnea on exertion, respiratory wheezing, and denies cough or sputum productions. He denies any fever or chills or sweating. He is also complained of left-sided mild, intermittent, sharp pain originated from left lower quadrant abdomen with radiation to the left upper quadrant abdomen as well as the left sided chest wall on and off over the past month. As stated before, he also have a unintentional weight gain of 20 pounds over the past 3 days. He also has been noticing bilateral lower extremity swellings over the same period of time. He is also complaining of possible discharged from surgical wound from bilateral feet on which he had surgery for gout about a month ago. Constitutional Constitutional: Absent chills, excessive sweating, fatigue, fever(s) and weakness EENT Eyes: Absent blurry vision, change in vision, loss of vision and other visual disturbances Ears: Absent decreased hearing and tinnitus Nose, mouth and throat: Absent abnormal hearing, dry mouth, headache(s), nasal congestion and sore throat Cardiovascular Cardiovascular: Present chest pain at rest, edema and leg edema; Absent chest pain, irregular heart rhythm and palpatations Respiratory Respiratory: Present dyspnea on exertion; Absent cough, dyspnea and wheezing Additional comments: Shortness of breath Gastrointestinal Gastrointestinal: Present abdominal pain; Absent constipation, diarrhea, nausea and vomiting Musculoskeletal Musculoskeletal: Absent back pain, deformity, limited range of motion, muscle cramps, muscle weakness and numbness Additional comments: Bilateral feet surgical wound pustular formations Integumentary Integumentary: Present wounds; Absent lesions and rash Neurological Neurological: Absent focal weakness, headache(s) and numbness Psychiatric Psychiatric: Absent anxiety, depression and hallucinations PFSH PFSH All Active Problems (Updated 06/30/20 @ 20:23 by Cali Dalton MD) Sigmoid diverticulosis (Acute) Surgical wound infection (Acute) Acute on chronic congestive heart failure (Acute) Hypoxia (Acute) Chest pain (Acute) History of cholecystectomy (Chronic) Morbid obesity due to excess calories (Chronic) H/O aortic valve replacement (Chronic) 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) CKD (chronic kidney disease) stage 4, GFR 15-29 ml/min (Chronic) Localized edema due to fluid overload (Chronic) TIA (transient ischemic attack) (Acute) Dysphagia (Chronic) History of tobacco use (Chronic) Facial paresthesia (Acute) Paresthesia of left foot (Acute) Stroke (Chronic) Paroxysmal atrial fibrillation (Chronic) Chronic diastolic heart failure (Chronic) Hypertensive heart disease with heart failure (Chronic) Aortic valve disorder (Chronic) MELI (obstructive sleep apnea) (Chronic) Dermatofibroma of lower leg (Chronic) Plantar warts (Chronic) Dyspnea (Chronic) Esophageal stricture (Chronic) 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 (Chronic) buttermaker (current) use of insulin (Chronic) Thoracic back pain (Chronic) Pure hypercholesterolemia (Chronic) Male urinary stress incontinence (Chronic) Incontinence (Chronic) Depression (Chronic) Asthma (Chronic) Obstructive nephropathy (Chronic) Insomnia (Chronic) BPH with urinary obstruction (Chronic) Vitamin D deficiency (Chronic) Overactive bladder (Chronic) Gastroesophageal reflux (Chronic) Cervicalgia (Chronic) Benign prostatic hyperplasia with lower urinary tract symptoms (Chronic 10/16/13) Medical History (Updated 06/30/20 @ 20:23 by Cali Dalton MD) Acute kidney injury superimposed on CKD Acute on chronic renal failure Acute renal failure Anemia Aortic valve disorder Asthma Atypical chest pain Benign paroxysmal positional vertigo Benign prostatic hyperplasia with lower urinary tract symptoms (10/16/13) Trial of 2 to 3 days off of tamsulosin and if no change in voiding pattern stay off of it Bicuspid aortic valve history of BPH with urinary obstruction Cervicalgia Chest heaviness Cholelithiasis Chronic diastolic heart failure Constipation Depression Dermatofibroma of lower leg Diabetes mellitus with neuropathy Dysphagia Dyspnea Esophageal stricture Gastroesophageal reflux Generalized abdominal pain GI bleed History of coronary angiogram 11/2013 and 02/02/2015 per patient. History of gastric ulcer History of heat stroke History of heat stroke History of pneumonia History of tobacco use History of urinary incontinence Hypertensive heart disease with heart failure Incontinence Ingrown toenail of both feet (~03/2016) Insomnia Laryngeal disorder spasms prison (current) use of anticoagulants 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 prison (current) use of insulin Lower GI bleed Male urinary stress incontinence Morbid obesity due to excess calories Obstructive nephropathy MELI (obstructive sleep apnea) Overactive bladder Paroxysmal atrial fibrillation Plantar fasciitis of right foot Plantar wart Plantar warts PNA (pneumonia) Pure hypercholesterolemia Right-sided chest pain Stroke Thoracic back pain Vitamin D deficiency Wheezing Surgical History H/O aortic valve replacement H/O aortic valve replacement with porcine valve (02/23/15) History of cataract surgery (~2014) History of cholecystectomy History of repair of hiatal hernia (~1990) Stents 1994, 2004, 1990, 2012 History of surgery Bone spur fascitis release right foot History of surgery Removed tarsal nerve History of transurethral resection of prostate (~2015) Hx of colonoscopy (04/27/16) 2001 Hx of foot surgery right Hx of shoulder surgery 2003 right, left in 1973 Hx of tonsillectomy (~1960) Status post right foot surgery (07/17/08) bone spur and plantar fasciitis release, removal of tarsal nerve Family History none listed Depression Type 2 diabetes mellitus Hypercholesterolemia Hypertension Acute myocardial infarction Father , age 88 H/O heart bypass surgery Depression Type 2 diabetes mellitus Hypercholesterolemia Hypertension Acute myocardial infarction High cholesterol Mother , age 84 Heart disease History of angina Hypertension High cholesterol History of diabetes mellitus Depression Social History (Updated 06/30/20 @ 09:55 by Gala Bertrand CMA) marital status: occupational status: retired physical activity: other details: Regular routine smoking status: Former smoker smoking status stop date: 03/13/83 alcohol intake frequency: a few times a week substance use type: does not use MEDS/ALLERGIES Home Medications and Allergies Home Medications Medication Instructions Recorded Confirmed Type aspirin 81 mg tablet,delayed 81 mg PO QDAY 01/13/15 06/30/20 History release nitroglycerin 0.4 mg sublingual 0.4 mg SUBLINGUAL Q5-15MIN PRN 01/13/15 06/30/20 History tablet cholecalciferol (vitamin D3) 125 5,000 unit PO QDAY 11/05/18 06/30/20 History mcg (5,000 unit) capsule ketoconazole 2 % shampoo 1 applic TOPICAL DAILYP PRN 11/05/18 06/30/20 History furosemide 80 mg tablet 80 mg PO BID 04/02/19 06/30/20 History CPAP #1 ea 04/04/19 06/30/20 History rosuvastatin 10 mg tablet 10 mg PO QHS tab 05/27/19 06/30/20 History gabapentin 300 mg capsule See Rx Instructions .ROUTE 10/01/19 06/30/20 History .COMPLEX cap mometasone 1 applic TOPICAL QDAY PRN 11/16/19 06/30/20 History ferrous gluconate 324 mg (37.5 mg 324 mg PO QDAY #90 tab 12/02/19 06/30/20 Rx iron) tablet isosorbide mononitrate 30 mg 30 mg PO QAM 12/02/19 06/30/20 History tablet,extended release 24 hr metoprolol succinate 50 mg 75 mg PO BID tab 12/02/19 06/30/20 History tablet,extended release 24 hr fenofibrate nanocrystallized 48 mg 48 mg PO QDAY 12/03/19 06/30/20 History tablet clonidine HCl 0.1 mg tablet 0.1 mg PO BID tab 12/31/19 06/30/20 History insulin regular hum U-500 conc See Rx Instructions SUB-Q TIDWMEAL 03/27/20 06/30/20 History ml duloxetine 60 mg capsule,delayed 60 mg PO QHS #30 cap 04/07/20 06/30/20 Rx release sprinkle pantoprazole 40 mg tablet,delayed 40 mg PO BID #60 tab 04/07/20 06/30/20 Rx release spironolactone 25 mg tablet 25 mg PO QDAY #30 tab 04/30/20 06/30/20 Rx tolterodine 4 mg capsule,extended 4 mg PO QDAY 180 Days #180 cap 05/01/20 06/30/20 Rx release 24 hr oxybutynin chloride 5 mg 10 mg PO QDAY #60 tab 05/11/20 06/30/20 Rx tablet,extended release 24 hr allopurinol 100 mg tablet 150 mg PO QDAY #135 tab 06/29/20 06/30/20 Rx cephalexin 500 mg capsule 1,000 mg PO BID 06/30/20 History indomethacin PO 06/30/20 06/30/20 History Allergies Allergy/AdvReac Type Severity Reaction Status Date / Time clopidogrel [From PLAVIX] Allergy Mild HIVES Verified 06/30/20 15:41 prasugrel [From Effient] AdvReac Intermediate Nose Bleed Verified 06/30/20 15:41 niacin [NIACIN] AdvReac Mild RASH, Verified 06/30/20 15:41 HIVES WITH HIGH DOSES EXAM Constitutional Vitals: Temp Pulse Resp BP Pulse Ox 36.2 C 63 31 H 144/75 94 06/30/20 15:37 06/30/20 19:42 06/30/20 19:42 06/30/20 19:31 06/30/20 19:42 General appearance: cooperative and no acute distress Head Head exam: Present atraumatic and normocephalic Eye Eye exam: Present EOMI and PERRL ENT ENT exam: Present mucous membranes moist, normal exam and normal external ear exam Additional comments: Nasal cannula in place Neck Neck exam: Present normal inspection; Absent lymphadenopathy, tenderness and thyromegaly Respiratory Respiratory exam: Absent accessory muscle use, respiratory distress and wheezes Additional comments: Decreased breath sounds bilateral bases Cardiovascular Cardiovascular exam: Present normal rate and rhythm; Absent JVD Additional comments: 2+ pitting edema up to bilateral knees GI/Abdominal GI/Abdominal exam: Present normal bowel sounds, soft and tenderness; Absent organomegaly Rectal Rectal exam: Present deferred Extremities Exam Extremities exam: Present full ROM, normal capillary refill and normal inspection; Absent tenderness Additional comments: Erythema and pitting edema of bilateral lower legs up to the knee level Dorsum of bilateral feet surgical wound with pustular discharge and tenderness to palpation Neurological Exam Neurological exam: Present alert, CN II-XII intact and oriented X3; Absent motor sensory deficit Psychiatric Psychiatric exam: Present normal affect and normal mood; Absent anxious and depressed Skin Skin exam: Present dry and intact DATA Data Completed and Pending Labs: Labs from last 24 hours 06/30/20 06/30/20 06/30/20 18:32 15:49 15:49 WBC RBC Hgb Hct MCV MCH MCHC RDW Plt Count MPV Neut % (Auto) Lymph % (Auto) [place] % (Auto) Eos % (Auto) Baso % (Auto) Lymph # (Auto) [place] # (Auto) Eos # (Auto) Baso # (Auto) Absolute Neutrophils Sodium 137 Potassium 4.3 Chloride 102 Carbon Dioxide 23 Anion Gap 12.0 BUN 71 H Creatinine 3.7 H GFR Calculation 15 Glucose 279 H Calcium 9.3 Total Bilirubin 0.7 AST 17 ALT 15 Alkaline Phosphatase 57 Troponin T 0.04 H* NT-Pro-B Natriuret Pep 75815.0 H Total Protein 7.2 Albumin 3.3 Globulin 3.9 H Albumin/Globulin Ratio 0.8 L Urine Color Yellow Urine Appearance Hazy A Urine pH 6.0 Ur Specific [place] 1.010 Urine Protein 30 A Urine Glucose (UA) Negative Urine Ketones Negative Urine Occult Blood 0.03 Urine Nitrate Negative Urine Bilirubin Negative Urine Urobilinogen 2.0 A Ur Leukocyte Esterase Negative Urine RBC 1 Urine WBC < 1 Ur Squamous Epith Cells 0 Amorphous Crystals Few A Urine Bacteria None Urine Mucus Few A Ur Culture Indicated? No 06/30/20 15:49 WBC 8.8 RBC 3.52 L Hgb 10.3 L Hct 33.0 L MCV 93.8 MCH 29.3 MCHC 31.2 RDW 15.0 H Plt Count 178 MPV 10.7 H Neut % (Auto) 79.6 H Lymph % (Auto) 5.6 L [place] % (Auto) 12.2 H Eos % (Auto) 2.1 Baso % (Auto) 0.5 Lymph # (Auto) 0.49 L [place] # (Auto) 1.07 H Eos # (Auto) 0.18 Baso # (Auto) 0.04 Absolute Neutrophils 7.00 Sodium Potassium Chloride Carbon Dioxide Anion Gap BUN Creatinine GFR Calculation Glucose Calcium Total Bilirubin AST ALT Alkaline Phosphatase Troponin T NT-Pro-B Natriuret Pep Total Protein Albumin Globulin Albumin/Globulin Ratio Urine Color Urine Appearance Urine pH Ur Specific [place] Urine Protein Urine Glucose (UA) Urine Ketones Urine Occult Blood Urine Nitrate Urine Bilirubin Urine Urobilinogen Ur Leukocyte Esterase Urine RBC Urine WBC Ur Squamous Epith Cells Amorphous Crystals Urine Bacteria Urine Mucus Ur Culture Indicated? 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 CHF exacerbation: Admit to inpatient PCU 2L/day fluid restriction Daily weigh Intake and output Lasix 40mg IV BID Continue beta jennifer and Aldactone, and ACEi/ARB Supplemental oxygen via nasal cannula titrate to achieve oxygen satuation >=92% 2D echocardiogram PT/OT evaluation and treatment for placement planning 2. Chest pain ACS rule out: Aspirin Statin Morphine IV PRN severe pain NitroSTAT SL PRN chest pain Supplemental oxygen via nasal cannula titrate to achieve oxygen satuation >=92% Serial serum troponin-i 3. h/o sigmoid diverticulosis with ongoing abdominal pain: CT abdomen pelvis w/o contrast Morphine IV PRN severe pain 4. Bilateral feet surgical wound infection: Consult head golf coach arlen Negron. appreciated CT bilateral feet w/o contrast Morphine IV PRN severe pain Blood culture X2 Wound culture Serial lactic acid Procalcitonin cbc w/ auto diff in the AM to trend WBC 5. T2DM: HgA1c Hold oral hypoglycemics Lantus 80 unit HS Lispro 27 unit TID AC Low dose sliding scale insulin AC HS Accu Chec AC HS Hypoglycemia protocol Diabetic diet 6. CKD stage 4: Avoid nephrotoxic agents Saline lock CMP in the AM to trend kidney functions Avoid IV contrast If kidney functions worsen, will consult Dr. Cheung 7. MELI on CPAP: Continue CPAP at night while sleeping 8. g/o gout: It is okay to continue allopurinol since there is no evidence of active gout PT/OT evaluation and treatment for placement planning Time Spent With Patient Time: Total time spent is greater than 50% in coordination of care (as documented) at patient's floor/unit and/or counseling patient: Total time spent with greater than 50% in coordination of care (as documented) at patient's floor/unit and/or counseling patient:: Greater than 35 minutes
[2020-06-30] MEDS ORDERED: INSULIN GLARGINE, HUMAN 1 UNIT/0.01 ML SQ SCH (21:00)
[2020-06-30] MEDS ORDERED: INSULIN LISPRO 1 UNIT/0.01 ML UNIT SQ SCH (21:00)
[2020-06-30] MEDS ORDERED: FUROSEMIDE 40 MG/4 ML VIAL IV SCH (21:00)
[2020-06-30] MEDS ORDERED: IPRATROPIUM/ALBUTEROL 3 ML AMPUL.NEB NEB PRN (21:22)
[2020-06-30] MEDS ORDERED: ONDANSETRON 4 MG/2 ML VIAL IV PRN (21:22)
[2020-06-30] MEDS ORDERED: SENNOSIDES 1 TABLET PO PRN (21:22)
[2020-06-30] MEDS ORDERED: LACTULOSE 20 GM/30 ML ORAL.SOL PO PRN (21:22)
[2020-06-30] MEDS: DOCUSATE SODIUM 100 MG CAPSULE PO SCH (21:56)
[2020-06-30] MEDS: HEPARIN 5,000 UNIT/ML VIAL SQ SCH (22:06)
[2020-06-30] MEDS: PIPERACILLIN SODIUM/TAZOBACTAM 2.25 GM in DEXTROSE 5% IN WATER 50 ML IV SCH (22:10)
[2020-06-30] MEDS: 0.9 % SODIUM CHLORIDE 10 ML SYRINGE IV SCH (22:13)
[2020-06-30 22:24] LABS: Estimated Average Glucose(eAG) 171 mg/dL; Hemoglobin A1C 7.6 % Hgb (4.0-6.0)
[2020-06-30 22:35] LABS: ALT/SGPT 14 U/L (<40); AST/SGOT 15 U/L (<40); Albumin 3.2 gm/dL (3.2-5.2); Albumin/Globulin Ratio 0.8 (1.0-2.3); Alkaline Phosphatase 52 U/L (39-117); Bilirubin,Total 0.7 mg/dL (0.1-1.0); Blood Urea Nitrogen 71 mg/dL (8-23); Calcium 9.3 mg/dL (8.6-10.4); Carbon Dioxide 26 mmol/L (22-30); Chloride 102 mmol/L (96-108); Globulin 3.9 gm/dL (2.2-3.7); Glomerular Filtration Rate 16; Glucose 228 mg/dL (70-105)
[2020-07-01] MEDS: ACETAMINOPHEN 325 MG TABLET PO PRN (02:21)
[2020-07-01] MEDS: morphine 2 MG/ML VIAL IV PRN ×4 (02:44→19:59)
[2020-07-01 04:13] LABS: Basophils # (Auto) 0.05 K/mcL (0.00-0.20); Basophils % (Auto) 0.6 % (0.0-2.0); Eosinophils % (Auto) 2.2 % (0.0-7.0); Hematocrit 30.7 % (41.0-55.0); Hemoglobin 9.7 g/dL (13.5-16.5); Lymphocytes # (Auto) 0.36 K/mcL (1.50-4.80); Mean Cell Volume 93.9 fL (80.0-100.0); Mean Corpuscular HGB Conc 31.6 g/dL (31.0-36.0); Mean Platelet Volume 10.4 fL (7.4-10.4); Monocytes # (Auto) 1.12 K/mcL (0.10-0.90); Monocytes % (Auto) 12.6 % (1.0-12.0); Neutrophils % (Auto) 80.6 % (38.0-78.0); Platelet Count 188 K/mcL (140-440); RBC 3.27 M/mcL (4.50-5.90); Red Cell Distribution Width 15.2 % (11.5-14.5); WBC 8.9 K/mcL (4.5-11.0)
[2020-07-01 04:42] LABS: ALT/SGPT 14 U/L (<40); AST/SGOT 14 U/L (<40); Albumin 3.1 gm/dL (3.2-5.2); Albumin/Globulin Ratio 0.9 (1.0-2.3); Alkaline Phosphatase 49 U/L (39-117); Bilirubin,Total 0.8 mg/dL (0.1-1.0); Blood Urea Nitrogen 68 mg/dL (8-23); Calcium 9.3 mg/dL (8.6-10.4); Carbon Dioxide 27 mmol/L (22-30); Chloride 100 mmol/L (96-108); Globulin 3.6 gm/dL (2.2-3.7); Glomerular Filtration Rate 14; Glucose 249 mg/dL (70-105)
[2020-07-01] MEDS: PIPERACILLIN SODIUM/TAZOBACTAM 2.25 GM in DEXTROSE 5% IN WATER 50 ML IV SCH ×3 (05:08→22:14)
[2020-07-01] MEDS: 0.9 % SODIUM CHLORIDE 10 ML SYRINGE IV SCH ×3 (05:52→20:01)
[2020-07-01] MEDS ORDERED: MOMETASONE 0.1% TOPICAL PRN (06:45)
[2020-07-01] MEDS ORDERED: KETOCONAZOLE TOPICAL PRN (06:47)
[2020-07-01] MEDS ORDERED: INSULIN LISPRO 1 UNIT/0.01 ML UNIT SQ SCH ×3 (07:00→07:30)
[2020-07-01] MEDS: PANTOPRAZOLE 40 MG TABLET PO SCH ×2 (07:29→17:26)
--- NOTE | 2020-07-01 09:01 | Cat Scan Report ---
History: Abdominal pain and short of breath, peripheral edema, history of sigmoid diverticulitis TECHNIQUE: The patient was imaged without contrast from the diaphragm through the symphysis pubis. Sagittal and coronal reformats were created. Radiation exposure was limited using dose reduction technology. FINDINGS: There are moderate groundglass alveolar infiltrates in both lower lobes. There is also thickening of the interlobular septa and a very small right-sided pleural effusion. Mild pleural thickening is seen at the left posterior costophrenic sulcus. The liver is normal in size. There is mild generalized fatty infiltration. No mass is seen. The gallbladder is been removed. The bile ducts are nondilated. The pancreas and spleen are normal in size and homogeneous. The adrenals are normal and symmetric. There are two small exophytic cysts in the left kidney. The largest is located inferiorly and medially and measures 1 cm. The other is located laterally in the upper pole. There is no suspicious mass in either kidney. No stone or hydronephrosis are present on either side. Amount calcified plaque is present along the wall normal caliber abdominal aorta and iliac arteries. Urinary bladder is normally distended. There is a cylindrical defect in the prostate which may be from prior transurethral resection. Prostate is normal in size. Seminal vesicles are normal. Patient has a fat-containing umbilical hernia measuring 1.2 cm. There is inflammation or edema in the surrounding subcutaneous fat. The bowel pattern is normal without evidence of diverticulitis or obstruction. The appendix is noninflamed. Within the omental fat there are two ring shaped calcifications which may be from prior inflammatory process. No ascites or adenopathy are present in the abdomen or pelvis. IMPRESSION: No evidence of acute diverticulitis or inflammation within the abdomen or pelvis Alveolar opacities in both lower lobes which could be pneumonia or pulmonary edema Fatty infiltration of the liver Interpreted and Authenticated by: Manolo Rosales 07/01/20
--- NOTE | 2020-07-01 09:08 | Cat Scan Report ---
History: Right foot infection and leg edema TECHNIQUE: The right foot was imaged without contrast from the lower calf to the bottom of the foot. Sagittal and coronal reformats were created. The radiation exposure was limited using dose reduction technology. FINDINGS: There is moderate edema in the calf and foot. There is a small skin wound along the plantar surface of the foot beneath the head of the third metatarsal. This contains a tiny bubble of air. There is subcutaneous thickening but no abscess collection is identified. The adjacent bone is normal without evidence of osteomyelitis or fracture. The bones in the foot and ankle and lower calf are normally mineralized. Joint spaces are normal in width and alignment. There is no fracture or osteomyelitis or significant degenerative change. There is an incidental spur along the plantar surface of the calcaneus. Atherosclerotic plaques are present in the arteries around the ankle. IMPRESSION: Small skin ulceration beneath the head of the third metatarsal and adjacent proximal phalanx of the third toe No evidence of abscess or osteomyelitis Generalized subcutaneous edema Interpreted and Authenticated by: Manolo Rosales 07/01/20
--- NOTE | 2020-07-01 09:12 | Cat Scan Report ---
History: Right foot infection TECHNIQUE: The right foot was imaged from above the ankle to the bottom of the foot without contrast. Sagittal and coronal reformats were created. The radiation exposure was limited using dose reduction technology. FINDINGS: There is a skin ulceration along the plantar surface of the foot beneath the head of the third metatarsal. There is cellulitis. Within the inflamed soft tissues there is a bubble of air measuring 5 mm. The adjacent head of the metatarsal is normal without evidence of osteomyelitis or fracture. Except for a spur on the plantar surface of the calcaneus, the bones in the foot and ankle are normal without evidence of fracture or osteomyelitis. The bones are normally mineralized. There is moderate generalized edema subcutaneous tissues from the lower calf to the foot.. IMPRESSION: Skin ulceration beneath the head of the third metatarsal but without evidence of osteomyelitis Interpreted and Authenticated by: Manolo Rosales 07/01/20
--- NOTE | 2020-07-01 09:20 | Orthopedic Consult Note ---
HPI Data of Consult Primary Care Provider: Morris Cavanaugh MD Consult Narrative Patient Information: Note initiated : 07/01/20 at 9:16 am Service Date, if different from initiated Date: [] Patient: Neftaly Poon 74 y/o M admitted on 06/30/20 for shortness of breath, lower leg edema. Chief Complaint: [foot wounds] Mr. Poon is a pleasant 74-year-old male. Both of his feet have wounds under the fourth metatarsal. Approximate [address] Vu Burton removed Sanchez's neuroma is from these areas. Currently he was having pain due to hyperkeratotic callus lesions under this region. Patient claims that Dr. Chen remove these with sharp excision of calluses. These were stitched together. The wound started opening up approximate 1 month ago. He does have diabetes and neuropathy to the bilateral lower lower extremities. Due to the pressure this area likely contributed to the dehiscence and subsequent infection of the wounds complicated by his uncontrolled diabetes mellitus. Since then there has been substantial maceration and drainage from the wounds and they are not getting any better. Recently the lower extremities became red hot and swollen. The left is worse than the right. He has not had major episodes of fever chills but he does have shortness of breath. 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) CKD (chronic kidney disease) stage 4, GFR 15-29 ml/min (Chronic) Localized edema due to fluid overload (Chronic) TIA (transient ischemic attack) (Acute) Dysphagia (Chronic) History of tobacco use (Chronic) Facial paresthesia (Acute) Paresthesia of left foot (Acute) Stroke (Chronic) Paroxysmal atrial fibrillation (Chronic) Chronic diastolic heart failure (Chronic) Hypertensive heart disease with heart failure (Chronic) Aortic valve disorder (Chronic) MELI (obstructive sleep apnea) (Chronic) Dermatofibroma of lower leg (Chronic) Plantar warts (Chronic) Dyspnea (Chronic) Esophageal stricture (Chronic) director long term care (current) use of aspirin (Chronic) residential (current) use of insulin (Chronic) Thoracic back pain (Chronic) Pure hypercholesterolemia (Chronic) Male urinary stress incontinence (Chronic) Incontinence (Chronic) Depression (Chronic) Asthma (Chronic) Obstructive nephropathy (Chronic) Insomnia (Chronic) BPH with urinary obstruction (Chronic) Vitamin D deficiency (Chronic) Overactive bladder (Chronic) Gastroesophageal reflux (Chronic) Cervicalgia (Chronic) Benign prostatic hyperplasia with lower urinary tract symptoms (Chronic 10/16/13) Medical History (Updated 06/30/20 @ 20:23 by Cali Dalton MD) Acute kidney injury superimposed on CKD Acute on chronic renal failure Acute renal failure Anemia Aortic valve disorder Asthma Atypical chest pain Benign paroxysmal positional vertigo Benign prostatic hyperplasia with lower urinary tract symptoms (10/16/13) Trial of 2 to 3 days off of tamsulosin and if no change in voiding pattern stay off of it Bicuspid aortic valve history of BPH with urinary obstruction Cervicalgia Chest heaviness Cholelithiasis Chronic diastolic heart failure Constipation Depression Dermatofibroma of lower leg Diabetes mellitus with neuropathy Dysphagia Dyspnea Esophageal stricture Gastroesophageal reflux Generalized abdominal pain GI bleed History of coronary angiogram 11/2013 and 02/02/2015 per patient. History of gastric ulcer History of heat stroke History of heat stroke History of pneumonia History of tobacco use History of urinary incontinence Hypertensive heart disease with heart failure Incontinence Ingrown toenail of both feet (~03/2016) Insomnia Laryngeal disorder spasms residential (current) use of anticoagulants residential (current) use of aspirin director long term care (current) use of insulin Lower GI bleed Male urinary stress incontinence Morbid obesity due to excess calories Obstructive nephropathy MELI (obstructive sleep apnea) Overactive bladder Paroxysmal atrial fibrillation Plantar fasciitis of right foot Plantar wart Plantar warts PNA (pneumonia) Pure hypercholesterolemia Right-sided chest pain Stroke Thoracic back pain Vitamin D deficiency Wheezing Surgical History H/O aortic valve replacement H/O aortic valve replacement with porcine valve (02/23/15) History of cataract surgery (~2014) History of cholecystectomy History of repair of hiatal hernia (~1990) Stents 1994, 2004, 1990, 2012 History of surgery Bone spur fascitis release right foot History of surgery Removed tarsal nerve History of transurethral resection of prostate (~2015) Hx of colonoscopy (04/27/16) 2001 Hx of foot surgery right Hx of shoulder surgery 2004 right, left in 1973 Hx of tonsillectomy (~1960) Status post right foot surgery (07/17/08) bone spur and plantar fasciitis release, removal of tarsal nerve Family History none listed Depression Type 2 diabetes mellitus Hypercholesterolemia Hypertension Acute myocardial infarction Father , age 88 H/O heart bypass surgery Depression Type 2 diabetes mellitus Hypercholesterolemia Hypertension Acute myocardial infarction High cholesterol Mother , age 84 Heart disease History of angina Hypertension High cholesterol History of diabetes mellitus Depression Social History (Updated 06/30/20 @ 09:55 by Gala Bertrand CMA) marital status: occupational status: retired physical activity: other details: Regular routine smoking status: Former smoker smoking status stop date: 03/13/83 alcohol intake frequency: a few times a week substance use type: does not use MEDS/ALLERGIES Home Medications and Allergies Home Medications Medication Instructions Recorded Confirmed Type aspirin 81 mg tablet,delayed 81 mg PO QDAY 01/13/15 06/30/20 History release nitroglycerin 0.4 mg sublingual 0.4 mg SUBLINGUAL Q5-15MIN PRN 01/13/15 06/30/20 History tablet cholecalciferol (vitamin D3) 125 5,000 unit PO QDAY 11/05/18 06/30/20 History mcg (5,000 unit) capsule ketoconazole 2 % shampoo 1 applic TOPICAL DAILYP PRN 11/05/18 06/30/20 History furosemide 80 mg tablet 80 mg PO BID 04/02/19 06/30/20 History CPAP #1 ea 04/04/19 06/30/20 History rosuvastatin 10 mg tablet 10 mg PO QHS tab 05/27/19 06/30/20 History gabapentin 300 mg capsule See Rx Instructions .ROUTE 10/01/19 06/30/20 History .COMPLEX cap mometasone 1 applic TOPICAL QDAY PRN 11/16/19 06/30/20 History ferrous gluconate 324 mg (37.5 mg 324 mg PO QDAY #90 tab 12/02/19 06/30/20 Rx iron) tablet isosorbide mononitrate 30 mg 30 mg PO QAM 12/02/19 06/30/20 History tablet,extended release 24 hr metoprolol succinate 50 mg 75 mg PO BID tab 12/02/19 06/30/20 History tablet,extended release 24 hr fenofibrate nanocrystallized 48 mg 48 mg PO QDAY 12/03/19 06/30/20 History tablet clonidine HCl 0.1 mg tablet 0.1 mg PO BID@1800,2300 tab 12/31/19 07/01/20 History insulin regular hum U-500 conc See Rx Instructions SUB-Q TIDWMEAL 03/27/20 06/30/20 History ml duloxetine 60 mg capsule,delayed 60 mg PO QHS #30 cap 04/07/20 06/30/20 Rx release sprinkle pantoprazole 40 mg tablet,delayed 40 mg PO BID #60 tab 04/07/20 06/30/20 Rx release spironolactone 25 mg tablet 25 mg PO QDAY #30 tab 04/30/20 06/30/20 Rx tolterodine 4 mg capsule,extended 4 mg PO QDAY 180 Days #180 cap 05/01/20 06/30/20 Rx release 24 hr oxybutynin chloride 5 mg 10 mg PO QDAY #60 tab 05/11/20 06/30/20 Rx tablet,extended release 24 hr allopurinol 100 mg tablet 150 mg PO QDAY #135 tab 06/29/20 06/30/20 Rx cephalexin 1,000 mg PO BID 06/30/20 06/30/20 History colchicine 0.3 mg PO QDAY 06/30/20 06/30/20 History indomethacin PO 06/30/20 06/30/20 History Allergies Allergy/AdvReac Type Severity Reaction Status Date / Time clopidogrel [From PLAVIX] Allergy Mild HIVES Verified 06/30/20 15:41 indomethacin AdvReac Intermediate Severe Verified 07/01/20 06:35 Edema niacin [NIACIN] AdvReac Mild RASH, Verified 06/30/20 15:41 HIVES WITH HIGH DOSES prasugrel [From Effient] AdvReac Mild Nose Bleed Verified 06/30/20 21:30 Physical Examination Ankle & Foot bilateral: Ankle appearance: swelling, erythema and effusion Effusion grade: grade 1 Foot appearance: swelling, erythema and laceration Foot swelling: dorsal, plantar, medial, lateral, heel and toes Effusion grade: grade 1 Tenderness with palpation: none (insensate) A/P Time Spent With Patient Time: Total time spent is greater than 50% in coordination of care (as documented) at patient's floor/unit and/or counseling patient: Cellulitis surgical wound dehiscence with infection and diabetes mellitus. Patient needs culture long-term antibiotics magnetic resonance imaging to rule out abscess bilateral lower extremity. Likely long-term antibiotics possible osteomyelitis CT scan does not show acute chronic osteo this time. Patient also needs to be nonweightbearing and once stabilized can be discharged home and treated outpatient for chronic wounds. Will likely require chronic wound care therapy and podiatry following discharge from hospital. Not a candidate for incision and drainage at this moment given the open nature of his wounds and the lack of abscess noted clinically however pending MRI results.
[2020-07-01] MEDS: INSULIN LISPRO 1 UNIT/0.01 ML UNIT SQ SCH ×4 (09:32→21:41)
[2020-07-01] MEDS: cloNIDine HCL 0.1 MG TABLET PO SCH ×2 (09:34→21:44)
[2020-07-01] MEDS: VITAMIN D3 5,000 UNIT CAPSULE PO SCH (09:34)
[2020-07-01] MEDS: ALLOPURINOL 100 MG TABLET PO SCH (09:34)
[2020-07-01] MEDS: OXYBUTYNIN CHLORIDE 5 MG TAB.XL.24H PO SCH (09:34)
[2020-07-01] MEDS: METOPROLOL SUCCINATE 50 MG TAB.XL.24H PO SCH ×2 (09:35→21:44)
[2020-07-01] MEDS: ASPIRIN 81 MG TAB.CHEW PO SCH (09:35)
[2020-07-01] MEDS: FERROUS GLUCONATE 324 MG TABLET PO SCH (09:35)
[2020-07-01] MEDS: DOCUSATE SODIUM 100 MG CAPSULE PO SCH ×2 (09:36→21:43)
[2020-07-01] MEDS: FENOFIBRATE 43 MG CAPSULE PO SCH (09:36)
[2020-07-01] MEDS: SPIRONOLACTONE 25 MG TABLET PO SCH (09:36)
[2020-07-01] MEDS: ISOSORBIDE MONONITRATE 30 MG TAB.XL.24H PO SCH (09:36)
[2020-07-01] MEDS: HEPARIN 5,000 UNIT/ML VIAL SQ SCH ×2 (09:37→21:41)
[2020-07-01] MEDS: FUROSEMIDE 40 MG/4 ML VIAL IV SCH ×2 (09:37→21:41)
[2020-07-01] MEDS: TOLTERODINE 2 MG CAP.XL.24H PO SCH (10:48)
[2020-07-01] MEDS: GABAPENTIN 300 MG CAPSULE PO SCH ×3 (12:42→21:44)
[2020-07-01] MEDS ORDERED: VANCOMYCIN PER PHARMACY IV SCH (14:00)
[2020-07-01] MEDS ORDERED: VANCOMYCIN 1,500 MG in 0.9 % SODIUM CHLORIDE 500 ML IV ONE (15:00)
--- NOTE | 2020-07-01 16:47 | Internal Med Progress Note ---
SUBJECTIVE Subjective Patient information: Note initiated : 07/01/20 at 4:42 pm Service Date, if different from initiated Date: [] Patient: Neftaly Poon 74 y/o M admitted on 06/30/20 for shortness of breath, lower leg edema. Chief Complaint: [CHF exacerbation, bilateral feet surgical site infection] Overnight events: Troponin-i between 0.03 to 0.04. Afebrile. Up to 5L/min oxygen via nasal cannula. Wound cultures grew S aureus and gram negative bacillus . Subjective: Mild cramping pain LUQ and LLQ. Mild SOB. Denies cough or wheezing. Denies sputum production. Denies fever or chills. Moderate to severe sharp pain bilateral feet. Constitutional Vitals: Vital Signs Temp Pulse Resp BP Pulse Ox 36.5 C 59 L 20 95/78 91 07/01/20 16:01 07/01/20 16:21 07/01/20 16:21 07/01/20 16:01 07/01/20 16:21 Period Temp Pulse Resp BP Sys/Matos Pulse Ox Last 24 Hr 36.5 C-37.3 C 53-137 9-31 95-174/63-113 85-97 Intake and Output 07/01/20 07/01/20 07/01/20 05:59 13:59 21:59 Intake Total 100 500 290 Output Total 2024 117 500 Balance -5 -675 -210 Weight 133.583 kg Patient Weight 07/02/20 05:59 Weight 133.583 kg Intake & Output: Intake & Output 07/01/20 07/01/20 07/01/20 05:59 13:59 21:59 Intake Total 100 500 290 Output Total 2024 117 500 Balance -5 -5 -210 Weight 133.583 kg Intake: IV 100 50 Zosyn 2.25 gm In Dextrose 5% in 100 50 Water 50 ml @ 100 mls/hr IV Q8H [facility] Rx#:[id number] Oral 500 240 Output: Void Amount 2024 117 500 Other: Meal Lunch Percent of Meal Consumed 25% Urine Appearance Clear Clear Clear Urine Color Straw Bright Yellow Pale # Bowel Movements 0 General appearance: cooperative and no acute distress Head Head exam: Present atraumatic and normocephalic Eye Eye exam: Present EOMI and PERRL ENT ENT exam: Present mucous membranes moist, normal exam and normal external ear exam Additional comments: Nasal cannula in place. Neck Neck exam: Present normal inspection; Absent lymphadenopathy, tenderness and thyromegaly Respiratory Respiratory exam: Absent accessory muscle use, respiratory distress and wheezes Additional comments: Crackles in bilateral lung bases Cardiovascular Cardiovascular exam: Present normal rate and rhythm; Absent JVD GI/Abdominal GI/Abdominal exam: Present normal bowel sounds, soft and tenderness; Absent organomegaly Additional comments: obese abdomen Rectal Rectal exam: Present deferred Extremities Exam Extremities exam: Present full ROM, normal capillary refill, normal inspection and pedal edema; Absent tenderness Additional comments: Bilateral dorsum of feet covered with wound dressing Neurological Exam Neurological exam: Present alert, CN II-XII intact and oriented X3; Absent motor sensory deficit Psychiatric Psychiatric exam: Present normal affect and normal mood; Absent anxious and depressed Skin Skin exam: Present dry and intact OBJ DATA Labs CBC & Chem 7: 07/01/20 03:38 07/01/20 03:22 Labs: Abnormal Lab Results 07/01/20 07/01/20 07/01/20 13:19 03:38 03:37 RBC 3.27 L Hgb 9.7 L Hct 30.7 L RDW 15.2 H MPV Neut % (Auto) 80.6 H Lymph % (Auto) 4.0 L [place] % (Auto) 12.6 H Lymph # (Auto) 0.36 L [place] # (Auto) 1.12 H BUN Creatinine Glucose Hemoglobin A1c Troponin T 0.04 H* 0.04 H* NT-Pro-B Natriuret Pep Albumin Globulin Albumin/Globulin Ratio Procalcitonin Urine Appearance Urine Protein Urine Urobilinogen Amorphous Crystals Urine Mucus 07/01/20 06/30/20 06/30/20 03:22 21:39 21:39 RBC Hgb Hct RDW MPV Neut % (Auto) Lymph % (Auto) [place] % (Auto) Lymph # (Auto) [place] # (Auto) BUN 68 H 71 H Creatinine 3.9 H 3.6 H Glucose 249 H 228 H Hemoglobin A1c 7.6 H Troponin T 0.03 H NT-Pro-B Natriuret Pep Albumin 3.1 L Globulin 3.9 H Albumin/Globulin Ratio 0.9 L 0.8 L Procalcitonin Urine Appearance Urine Protein Urine Urobilinogen Amorphous Crystals Urine Mucus 06/30/20 06/30/2021 20:10 18:32 15:49 RBC Hgb Hct RDW MPV Neut % (Auto) Lymph % (Auto) [place] % (Auto) Lymph # (Auto) [place] # (Auto) BUN Creatinine Glucose Hemoglobin A1c Troponin T 0.04 H* NT-Pro-B Natriuret Pep Albumin Globulin Albumin/Globulin Ratio Procalcitonin 0.41 H Urine Appearance Hazy A Urine Protein 30 A Urine Urobilinogen 2.0 A Amorphous Crystals Few A Urine Mucus Few A 06/30/20 06/30/20 15:49 15:49 RBC 3.52 L Hgb 10.3 L Hct 33.0 L RDW 15.0 H MPV 10.7 H Neut % (Auto) 79.6 H Lymph % (Auto) 5.6 L [place] % (Auto) 12.2 H Lymph # (Auto) 0.49 L [place] # (Auto) 1.07 H BUN 71 H Creatinine 3.7 H Glucose 279 H Hemoglobin A1c Troponin T NT-Pro-B Natriuret Pep 48813.0 H Albumin Globulin 3.9 H Albumin/Globulin Ratio 0.8 L Procalcitonin Urine Appearance Urine Protein Urine Urobilinogen Amorphous Crystals Urine Mucus Meds: Medications Acetaminophen (Acetaminophen 325 Mg Tablet) 650 mg PO Q6HP PRN; Protocol PRN Reason: Per Pain Protocol/Fever > 101 Last Admin: 07/01/20 02:21 Dose: 650 mg Documented by: Albuterol/Ipratropium (Ipratropium/Albuterol 3 Ml Ampul.Neb) 3 ml NEB Q4HP PRN PRN Reason: Wheezing Allopurinol (Allopurinol 100 Mg Tablet) 150 mg PO QDAY [facility] Last Admin: 07/01/20 09:34 Dose: 150 mg Documented by: Aspirin (Aspirin 81 Mg Tab.Chew) 81 mg PO DAILY [facility] Last Admin: 07/01/20 09:35 Dose: 81 mg Documented by: Atorvastatin Calcium (Atorvastatin 20 Mg Tablet) 20 mg PO HS [facility] Clonidine HCl (Clonidine Hcl 0.1 Mg Tablet) 0.1 mg PO BID [facility] Last Admin: 07/01/20 09:34 Dose: 0.1 mg Documented by: Dextrose (Dextrose 50% 50 Ml Vial) 0 ml IV UD PRN PRN Reason: Hypoglycemia Diagnostic Test (Pha) (Accu-Chek 1 Each Strip) 1 each FS ACHS [facility] Last Admin: 07/01/20 12:00 Dose: 1 each Documented by: Docusate Sodium (Docusate Sodium 100 Mg Capsule) 100 mg PO BID [facility] Last Admin: 07/01/20 09:36 Dose: 100 mg Documented by: Duloxetine HCl (Duloxetine 30 Mg Capsule) 60 mg PO QHS [facility] Fenofibrate (Fenofibrate 43 Mg Capsule) 43 mg PO DAILY [facility] Last Admin: 07/01/20 09:36 Dose: 43 mg Documented by: Ferrous Gluconate (Ferrous Gluconate 324 Mg Tablet) [facility] Last Admin: 07/01/20 09:35 Dose: 324 mg Documented by: Furosemide (Furosemide 40 Mg/4 Ml Vial) 40 mg IV Q12 [facility] Last Admin: 07/01/20 09:37 Dose: 40 mg Documented by: Gabapentin (Gabapentin 300 Mg Capsule) 300 mg PO TID@0800,1200,1700 [facility] Last Admin: 07/01/20 12:42 Dose: 300 mg Documented by: Gabapentin (Gabapentin 300 Mg Capsule) 600 mg PO [facility] Glucose (Dextrose 31 Gm Oral.Susp) 15 gm PO PRN PRN PRN Reason: Hypoglycemia Heparin Sodium (Porcine) (Heparin 5,000 Unit/Ml Vial) 5,000 unit SQ Q12 [facility] Last Admin: 07/01/20 09:37 Dose: 5,000 unit Documented by: Piperacillin Sod/Tazobactam (Sod 2.25 gm/ Dextrose) 50 mls @ 100 mls/hr IV Q8H [facility]; Protocol Last Infusion: 07/01/20 14:53 Dose: Infused Documented by: Insulin Glargine (Insulin Glargine, Human 1 Unit/0.01 Ml) 80 unit SQ [facility] Insulin Human Lispro (Insulin Lispro 1 Unit/0.01 Ml Unit) 0 unit SQ [facility]; Protocol Last Admin: 07/01/20 12:41 Dose: 12 units Documented by: Isosorbide Mononitrate (Isosorbide Mononitrate 30 Mg Tab.Xl.24h) [facility] Last Admin: 07/01/20 09:36 Dose: 30 mg Documented by: Lactulose (Lactulose 20 Gm/30 Ml Oral.Mia) 10 gm PO DAILYP PRN PRN Reason: Constipation Metoprolol Succinate (Metoprolol Succinate 50 Mg Tab.Xl.24h) 75 mg PO BID [facility] Last Admin: 07/01/20 09:35 Dose: 75 mg Documented by: Morphine Sulfate (Morphine 2 Mg/Ml Vial) 2 mg IV Q4HP PRN; Protocol PRN Reason: Per Pain Protocol Last Admin: 07/01/20 15:21 Dose: 2 mg Documented by: Nitroglycerin (Nitroglycerin 0.4 Mg Tab.Subl) 0.4 mg SL Q5M PRN PRN Reason: Chest Pain Ondansetron HCl (Ondansetron 4 Mg/2 Ml Vial) 4 mg IV Q4HP PRN; Protocol PRN Reason: Nausea And Vomiting Oxybutynin Chloride (Oxybutynin Chloride 5 Mg Tab.Xl.24h) 10 mg PO QDAY [facility] Last Admin: 07/01/20 09:34 Dose: 10 mg Documented by: Pantoprazole Sodium (Pantoprazole 40 Mg Tablet) 40 mg PO BIDAC [facility] Last Admin: 07/01/20 07:29 Dose: 40 mg Documented by: Mometasone 0.1 % (Ointment) 1 dose TOPICAL QDAY PRN PRN Reason: Ear Wax Ketoconazole 120 Ml (Shampoo) 1 dose TOPICAL DAILYP PRN PRN Reason: DERMATITIS Senna (Sennosides 1 Tablet) 2 tab PO HSP PRN PRN Reason: Constipation Sodium Chloride (0.9 % Sodium Chloride 10 Ml Syringe) 10 ml IV Q8 [facility] Last Admin: 07/01/20 12:42 Dose: 10 ml Documented by: Spironolactone (Spironolactone 25 Mg Tablet) 25 mg PO QDAY [facility] Last Admin: 07/01/20 09:36 Dose: 25 mg Documented by: Tolterodine Tartrate (Tolterodine 2 Mg Cap.Xl.24h) 4 mg PO QDAY [facility] Last Admin: 07/01/20 10:48 Dose: 4 mg Documented by: Vancomycin HCl (Vancomycin Per Pharmacy) 1 order IV UD [facility]; Protocol Vitamin D (Vitamin D3 5,000 Unit Capsule) 5,000 unit PO DAILY [facility] Last Admin: 07/01/20 09:34 Dose: 5,000 unit Documented by: A/P Assessment and plan (1) CKD (chronic kidney disease) stage 4, GFR 15-29 ml/min: Status: Chronic (2) 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 CHF exacerbation: Stays in inpatient PCU 2L/day fluid restriction Daily weigh Intake and output Lasix 40mg IV BID Continue beta jennifer and Aldactone, and ACEi/ARB Supplemental oxygen via nasal cannula titrate to achieve oxygen satuation >=92% 2D echocardiogram PT/OT evaluation and treatment for placement planning 2. Chest pain ACS rule out: Aspirin Statin Morphine IV PRN severe pain NitroSTAT SL PRN chest pain Supplemental oxygen via nasal cannula titrate to achieve oxygen satuation >=92% Serial serum troponin-i non-elevating 3. h/o sigmoid diverticulosis with ongoing abdominal pain: CT abdomen pelvis w/o contrast-->no abscess, diverticulosis, or bowel perforat ion Morphine IV PRN severe pain 4. Bilateral feet surgical wound infection: Consult maintenance equipment operator arlen Negron. appreciated CT bilateral feet w/o contrast--> no abscess or osteomyelitis Morphine IV PRN severe pain Blood culture X2, no growth to date Wound culture, S aureus and gram negative bacillus Serial lactic acid Procalcitonin cbc w/ auto diff in the AM to trend WBC 5. T2DM: HgA1c Hold oral hypoglycemics High dose sliding scale insulin AC HS Accu Chec AC HS Hypoglycemia protocol Diabetic diet 6. CKD stage 4: Avoid nephrotoxic agents Saline lock CMP in the AM to trend kidney functions Avoid IV contrast If kidney functions worsen, will consult Dr. Cheung 7. MELI on CPAP: Continue CPAP at night while sleeping 8. g/o gout: It is okay to continue allopurinol since there is no evidence of active gout PT/OT evaluation and treatment for placement planning Time Spent With Patient Time: Total time spent is greater than 50% in coordination of care (as documented) at patient's floor/unit and/or counseling patient: QUALITY VTE Deep Vein Thrombosis/Pulmonary Embolism Present on Admission: No
[2020-07-01] MEDS: INSULIN GLARGINE, HUMAN 1 UNIT/0.01 ML SQ SCH (21:42)
[2020-07-01] MEDS: DULoxetine 30 MG CAPSULE PO SCH (21:44)
[2020-07-01] MEDS: ATORVASTATIN 20 MG TABLET PO SCH (21:44)
[2020-07-02] MEDS: PIPERACILLIN SODIUM/TAZOBACTAM 2.25 GM in DEXTROSE 5% IN WATER 50 ML IV SCH ×3 (05:55→21:40)
[2020-07-02] MEDS: 0.9 % SODIUM CHLORIDE 10 ML SYRINGE IV SCH ×3 (05:56→21:34)
[2020-07-02 06:29] LABS: Basophils # (Auto) 0.07 K/mcL (0.00-0.20); Basophils % (Auto) 0.7 % (0.0-2.0); Eosinophils # (Auto) 0.24 K/mcL (0.00-0.70); Eosinophils % (Auto) 2.5 % (0.0-7.0); Hemoglobin 10.4 g/dL (13.5-16.5); Lymphocytes % (Auto) 5.3 % (15.0-49.0); Mean Cell Volume 93.5 fL (80.0-100.0); Mean Corpuscular HGB Conc 31.5 g/dL (31.0-36.0); Mean Platelet Volume 9.9 fL (7.4-10.4); Monocytes # (Auto) 1.13 K/mcL (0.10-0.90); Monocytes % (Auto) 11.9 % (1.0-12.0); Neutrophils % (Auto) 79.6 % (38.0-78.0); Platelet Count 240 K/mcL (140-440); RBC 3.53 M/mcL (4.50-5.90); Red Cell Distribution Width 15.5 % (11.5-14.5); WBC 9.5 K/mcL (4.5-11.0)
[2020-07-02 07:13] LABS: ALT/SGPT 15 U/L (<40); AST/SGOT 19 U/L (<40); Albumin 3.2 gm/dL (3.2-5.2); Albumin/Globulin Ratio 0.8 (1.0-2.3); Alkaline Phosphatase 50 U/L (39-117); Bilirubin,Total 0.8 mg/dL (0.1-1.0); Blood Urea Nitrogen 59 mg/dL (8-23); Calcium 10.2 mg/dL (8.6-10.4); Carbon Dioxide 31 mmol/L (22-30); Chloride 99 mmol/L (96-108); Globulin 4.2 gm/dL (2.2-3.7); Glomerular Filtration Rate 21; Glucose 188 mg/dL (70-105)
[2020-07-02] MEDS: PANTOPRAZOLE 40 MG TABLET PO SCH ×2 (07:49→17:15)
[2020-07-02] MEDS: TOLTERODINE 2 MG CAP.XL.24H PO SCH (08:37)
[2020-07-02] MEDS: INSULIN LISPRO 1 UNIT/0.01 ML UNIT SQ SCH ×4 (08:37→21:34)
[2020-07-02] MEDS: ASPIRIN 81 MG TAB.CHEW PO SCH (08:38)
[2020-07-02] MEDS: FERROUS GLUCONATE 324 MG TABLET PO SCH (08:38)
[2020-07-02] MEDS: OXYBUTYNIN CHLORIDE 5 MG TAB.XL.24H PO SCH (08:38)
[2020-07-02] MEDS: ISOSORBIDE MONONITRATE 30 MG TAB.XL.24H PO SCH (08:39)
[2020-07-02] MEDS: SPIRONOLACTONE 25 MG TABLET PO SCH (08:39)
[2020-07-02] MEDS: METOPROLOL SUCCINATE 50 MG TAB.XL.24H PO SCH ×2 (08:39→20:49)
[2020-07-02] MEDS: GABAPENTIN 300 MG CAPSULE PO SCH ×4 (08:39→20:55)
[2020-07-02] MEDS: ALLOPURINOL 100 MG TABLET PO SCH (08:39)
[2020-07-02] MEDS: VITAMIN D3 5,000 UNIT CAPSULE PO SCH (08:40)
[2020-07-02] MEDS: DOCUSATE SODIUM 100 MG CAPSULE PO SCH ×2 (08:40→20:50)
[2020-07-02] MEDS: FENOFIBRATE 43 MG CAPSULE PO SCH (08:40)
[2020-07-02] MEDS: cloNIDine HCL 0.1 MG TABLET PO SCH ×2 (08:40→20:54)
[2020-07-02] MEDS: FUROSEMIDE 40 MG/4 ML VIAL IV SCH (08:40)
[2020-07-02] MEDS: HEPARIN 5,000 UNIT/ML VIAL SQ SCH ×2 (08:40→20:54)
[2020-07-02] MEDS ORDERED: VANCOMYCIN 1,500 MG in 0.9 % SODIUM CHLORIDE 500 ML IV ONE (11:00)
--- NOTE | 2020-07-02 15:35 | Internal Med Progress Note ---
SUBJECTIVE Subjective Patient information: Note initiated : 07/02/20 at 3:33 pm Service Date, if different from initiated Date: [] Patient: Neftaly Poon 74 y/o M admitted on 06/30/20 for shortness of breath, lower leg edema. Chief Complaint: [CHF exacerbation, bilateral feet surgical wound infection.] Overnight: Low grade fever 37.7 overnight. Blood culture grew S aureus and gram positive cocci; Wound culture grew S aureus and E coli. Subjective: Mild SOB with respiratory wheezing. Low grade fever 37.7 overnight. mild LUQ and LLQ abdominal pain. Mild sharp pain of bilateral feet around the surgical sites. Constitutional Vitals: Vital Signs Temp Pulse Resp BP Pulse Ox 36.8 C 59 L 13 110/54 92 07/02/20 12:35 07/02/20 12:35 07/02/20 12:35 07/02/20 12:35 07/02/20 12:35 Period Temp Pulse Resp BP Sys/Matos Pulse Ox Last 24 Hr 36.5 C-37.7 C 59-74 13-22 95-170/54-102 85-98 Intake and Output 07/02/20 07/02/20 07/02/20 05:59 13:59 21:59 Intake Total 810 1150 Output Total 3101 1676 Balance -2291 -526 Intake & Output: Intake & Output 07/02/20 07/02/20 07/02/20 05:59 13:59 21:59 Intake Total 810 1150 Output Total 3101 1676 Balance -2291 -526 Intake: IV 550 550 Zosyn 2.25 gm In Dextrose 5% in 50 50 Water 50 ml @ 100 mls/hr IV Q8H [facility] Rx#:[id number] Vancomycin 1,500 mg In Sodium 500 500 Chloride 0.9% 500 ml @ 333.3 mls/hr IV ONCE ONE Rx#: [id number] Oral 260 600 Output: Void Amount 3100 1675 # of times incontinent of urine 1 1 Other: Meal Lunch Percent of Meal Consumed 75% Feeding Ability Independent Urine Appearance Clear Clear Urine Color Straw Pale # Voids 2 General appearance: cooperative and no acute distress Head Head exam: Present atraumatic and normocephalic Eye Eye exam: Present EOMI and PERRL ENT ENT exam: Present mucous membranes moist, normal exam and normal external ear exam Additional comments: Nasal cannula in place. Neck Neck exam: Present normal inspection; Absent lymphadenopathy, tenderness and thyromegaly Respiratory Respiratory exam: Absent accessory muscle use, respiratory distress and wheezes Cardiovascular Cardiovascular exam: Present normal rate and rhythm; Absent JVD GI/Abdominal GI/Abdominal exam: Present normal bowel sounds, soft and tenderness; Absent organomegaly Additional comments: Obese abdomen Rectal Rectal exam: Present deferred Extremities Exam Extremities exam: Present full ROM, normal capillary refill and normal inspection; Absent tenderness Neurological Exam Neurological exam: Present alert, CN II-XII intact and oriented X3; Absent motor sensory deficit Psychiatric Psychiatric exam: Present normal affect and normal mood; Absent anxious and de pressed Skin Skin exam: Present dry; Absent intact Additional comments: Bilateral dorsum of the feet surgical incision covered with dressing Erythema and swelling and tenderness to palpation and warmth of bilateral lower extremities. OBJ DATA Labs CBC & Chem 7: 07/02/20 04:57 07/02/20 04:56 Labs: Abnormal Lab Results 07/02/20 07/02/20 07/01/20 04:57 04:56 13:19 RBC 3.53 L Hgb 10.4 L Hct 33.0 L RDW 15.5 H MPV Neut % (Auto) 79.6 H Lymph % (Auto) 5.3 L [place] % (Auto) Lymph # (Auto) 0.50 L [place] # (Auto) 1.13 H Carbon Dioxide 31 H BUN 59 H Creatinine 2.8 H Glucose 188 H Hemoglobin A1c Troponin T 0.04 H* NT-Pro-B Natriuret Pep Albumin Globulin 4.2 H Albumin/Globulin Ratio 0.8 L Procalcitonin Urine Appearance Urine Protein Urine Urobilinogen Amorphous Crystals Urine Mucus 07/01/20 07/01/20 07/01/20 03:38 03:37 03:22 RBC 3.27 L Hgb 9.7 L Hct 30.7 L RDW 15.2 H MPV Neut % (Auto) 80.6 H Lymph % (Auto) 4.0 L [place] % (Auto) 12.6 H Lymph # (Auto) 0.36 L [place] # (Auto) 1.12 H Carbon Dioxide BUN 68 H Creatinine 3.9 H Glucose 249 H Hemoglobin A1c Troponin T 0.04 H* NT-Pro-B Natriuret Pep Albumin 3.1 L Globulin Albumin/Globulin Ratio 0.9 L Procalcitonin Urine Appearance Urine Protein Urine Urobilinogen Amorphous Crystals Urine Mucus 06/30/20 06/30/20 06/30/20 21:39 21:39 20:10 RBC Hgb Hct RDW MPV Neut % (Auto) Lymph % (Auto) [place] % (Auto) Lymph # (Auto) [place] # (Auto) Carbon Dioxide BUN 71 H Creatinine 3.6 H Glucose 228 H Hemoglobin A1c 7.6 H Troponin T 0.03 H NT-Pro-B Natriuret Pep Albumin Globulin 3.9 H Albumin/Globulin Ratio 0.8 L Procalcitonin 0.41 H Urine Appearance Urine Protein Urine Urobilinogen Amorphous Crystals Urine Mucus 06/30/20 06/30/20 06/30/20 18:32 15:49 15:49 RBC Hgb Hct RDW MPV Neut % (Auto) Lymph % (Auto) [place] % (Auto) Lymph # (Auto) [place] # (Auto) Carbon Dioxide BUN 71 H Creatinine 3.7 H Glucose 279 H Hemoglobin A1c Troponin T 0.04 H* NT-Pro-B Natriuret Pep 15690.0 H Albumin Globulin 3.9 H Albumin/Globulin Ratio 0.8 L Procalcitonin Urine Appearance Hazy A Urine Protein 30 A Urine Urobilinogen 2.0 A Amorphous Crystals Few A Urine Mucus Few A 06/30/20 15:49 RBC 3.52 L Hgb 10.3 L Hct 33.0 L RDW 15.0 H MPV 10.7 H Neut % (Auto) 79.6 H Lymph % (Auto) 5.6 L [place] % (Auto) 12.2 H Lymph # (Auto) 0.49 L [place] # (Auto) 1.07 H Carbon Dioxide BUN Creatinine Glucose Hemoglobin A1c Troponin T NT-Pro-B Natriuret Pep Albumin Globulin Albumin/Globulin Ratio Procalcitonin Urine Appearance Urine Protein Urine Urobilinogen Amorphous Crystals Urine Mucus Meds: Medications Acetaminophen (Acetaminophen 325 Mg Tablet) 650 mg PO Q6HP PRN; Protocol PRN Reason: Per Pain Protocol/Fever > 101 Last Admin: 07/01/20 02:21 Dose: 650 mg Documented by: Albuterol/Ipratropium (Ipratropium/Albuterol 3 Ml Ampul.Neb) 3 ml NEB Q4HP PRN PRN Reason: Wheezing Allopurinol (Allopurinol 100 Mg Tablet) 150 mg PO QDAY [facility] Last Admin: 07/02/20 08:39 Dose: 150 mg Documented by: Aspirin (Aspirin 81 Mg Tab.Chew) 81 mg PO DAILY [facility] Last Admin: 07/02/20 08:38 Dose: 81 mg Documented by: Atorvastatin Calcium (Atorvastatin 20 Mg Tablet) 20 mg PO [facility] Last Admin: 07/01/20 21:44 Dose: 20 mg Documented by: Clonidine HCl (Clonidine Hcl 0.1 Mg Tablet) 0.1 mg PO BID [facility] Last Admin: 07/02/20 08:40 Dose: 0.1 mg Documented by: Dextrose (Dextrose 50% 50 Ml Vial) 0 ml IV UD PRN PRN Reason: Hypoglycemia Diagnostic Test (Pha) (Accu-Chek 1 Each Strip) 1 each FS ACHS [facility] Last Admin: 07/02/20 12:42 Dose: 1 each Documented by: Docusate Sodium (Docusate Sodium 100 Mg Capsule) 100 mg PO BID [facility] Last Admin: 07/02/20 08:40 Dose: 100 mg Documented by: Duloxetine HCl (Duloxetine 30 Mg Capsule) 60 mg PO QHS [facility] Last Admin: 07/01/20 21:44 Dose: 60 mg Documented by: Fenofibrate (Fenofibrate 43 Mg Capsule) 43 mg PO DAILY [facility] Last Admin: 07/02/20 08:40 Dose: 43 mg Documented by: Ferrous Gluconate (Ferrous Gluconate 324 Mg Tablet) [facility] Last Admin: 07/02/20 08:38 Dose: 324 mg Documented by: Furosemide (Furosemide 40 Mg Tablet) 40 mg PO BIDD [facility] Gabapentin (Gabapentin 300 Mg Capsule) 300 mg PO TID@0800,1200,1700 [facility] Last Admin: 07/02/20 12:42 Dose: 300 mg Documented by: Gabapentin (Gabapentin 300 Mg Capsule) 600 mg PO [facility] Last Admin: 07/01/20 21:44 Dose: 600 mg Documented by: Glucose (Dextrose 31 Gm Oral.Susp) 15 gm PO PRN PRN PRN Reason: Hypoglycemia Heparin Sodium (Porcine) (Heparin 5,000 Unit/Ml Vial) 5,000 unit SQ Q12 [facility] Last Admin: 07/02/20 08:40 Dose: 5,000 unit Documented by: Piperacillin Sod/Tazobactam (Sod 2.25 gm/ Dextrose) 50 mls @ 100 mls/hr IV Q8H [facility]; Protocol Last Infusion: 07/02/20 06:39 Dose: Infused Documented by: Insulin Glargine (Insulin Glargine, Human 1 Unit/0.01 Ml) 80 unit SQ HS [facility] Last Admin: 07/01/20 21:42 Dose: 80 units Documented by: Insulin Human Lispro (Insulin Lispro 1 Unit/0.01 Ml Unit) 0 unit SQ ACHS [facility]; Protocol Last Admin: 07/02/20 12:42 Dose: 9 units Documented by: Isosorbide Mononitrate (Isosorbide Mononitrate 30 Mg Tab.Xl.24h) 30 mg PO QAM [facility] Last Admin: 07/02/20 08:39 Dose: 30 mg Documented by: Lactulose (Lactulose 20 Gm/30 Ml Oral.Mia) 10 gm PO DAILYP PRN PRN Reason: Constipation Metoprolol Succinate (Metoprolol Succinate 50 Mg Tab.Xl.24h) 75 mg PO BID [facility] Last Admin: 07/02/20 08:39 Dose: 75 mg Documented by: Morphine Sulfate (Morphine 2 Mg/Ml Vial) 2 mg IV Q4HP PRN; Protocol PRN Reason: Per Pain Protocol Last Admin: 07/01/20 19:59 Dose: 2 mg Documented by: Nitroglycerin (Nitroglycerin 0.4 Mg Tab.Subl) 0.4 mg SL Q5M PRN PRN Reason: Chest Pain Ondansetron HCl (Ondansetron 4 Mg/2 Ml Vial) 4 mg IV Q4HP PRN; Protocol PRN Reason: Nausea And Vomiting Oxybutynin Chloride (Oxybutynin Chloride 5 Mg Tab.Xl.24h) 10 mg PO QDAY [facility] Last Admin: 07/02/20 08:38 Dose: 10 mg Documented by: Pantoprazole Sodium (Pantoprazole 40 Mg Tablet) 40 mg PO BIDAC [facility] Last Admin: 07/02/20 07:49 Dose: 40 mg Documented by: Mometasone 0.1 % (Ointment) 1 dose TOPICAL QDAY PRN PRN Reason: Ear Wax Ketoconazole 120 Ml (Shampoo) 1 dose TOPICAL DAILYP PRN PRN Reason: DERMATITIS Senna (Sennosides 1 Tablet) 2 tab PO HSP PRN PRN Reason: Constipation Last Admin: 07/01/20 21:43 Dose: 2 tab Documented by: Sodium Chloride (0.9 % Sodium Chloride 10 Ml Syringe) 10 ml IV Q8 [facility] Last Admin: 07/02/20 12:42 Dose: 10 ml Documented by: Spironolactone (Spironolactone 25 Mg Tablet) 25 mg PO QDAY [facility] Last Admin: 07/02/20 08:39 Dose: 25 mg Documented by: Tolterodine Tartrate (Tolterodine 2 Mg Cap.Xl.24h) 4 mg PO QDAY [facility] Last Admin: 07/02/20 08:37 Dose: 4 mg Documented by: Vancomycin HCl (Vancomycin Per Pharmacy) 1 order IV UD [facility]; Protocol Vitamin D (Vitamin D3 5,000 Unit Capsule) 5,000 unit PO DAILY [facility] Last Admin: 07/02/20 08:40 Dose: 5,000 unit Documented by: A/P Assessment and plan (1) CKD (chronic kidney disease) stage 4, GFR 15-29 ml/min: Status: Chronic (2) 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 CHF exacerbation: Stays in inpatient PCU 2L/day fluid restriction Daily weigh Intake and output Convert Lasix 40 from IV to PO BID Continue beta jennifer and Aldactone, and ACEi/ARB Supplemental oxygen via nasal cannula titrate to achieve oxygen satuation >=92% 2D echocardiogram-->LVEF 66%, no evidence of diastolic dysfunction PT/OT evaluation and treatment for placement planning -->likely need SNF placement 2. Chest pain ACS rule out: Aspirin Statin Morphine IV PRN severe pain NitroSTAT SL PRN chest pain Supplemental oxygen via nasal cannula titrate to achieve oxygen satuation >=92% Serial serum troponin-i non-elevating 3. h/o sigmoid diverticulosis with ongoing abdominal pain: CT abdomen pelvis w/o contrast-->no abscess, diverticulosis, or bowel perforation Morphine IV PRN severe pain 4. Bilateral feet surgical wound infection: Consult food safety director arlen Negron. appreciated Cannot perform MRI since it is not compatible with stent Consider repeating CT to see any acute / chronic osteomyelitis to help determine the length of the antibiotics therapy CT bilateral feet w/o contrast--> no abscess or osteomyelitis Morphine IV PRN severe pain Blood culture from date of admission: grew S aureus and Gram possitive cocci 2D echo no signs of endocarditis Repeat Blood culture X2 today Wound culture, S aureus and E coli Serial lactic acid Procalcitonin cbc w/ auto diff in the AM to trend WBC Wound care consult ordered 5. T2DM: HgA1c Hold oral hypoglycemics High dose sliding scale insulin AC HS Insulin Lantus 80 unit HS Accu Chec AC HS Hypoglycemia protocol Diabetic diet 6. CKD stage 4: Avoid nephrotoxic agents Saline lock CMP in the AM to trend kidney functions Avoid IV contrast If kidney functions worsen, will consult Dr. Cheung 7. MELI on CPAP: Continue CPAP at night while sleeping 8. g/o gout: It is okay to continue allopurinol since there is no evidence of active gout PT/OT evaluation and treatment for placement planning Time Spent With Patient Time: Total time spent is greater than 50% in coordination of care (as documented) at patient's floor/unit and/or counseling patient: QUALITY VTE Deep Vein Thrombosis/Pulmonary Embolism Present on Admission: No
[2020-07-02] MEDS: FUROSEMIDE 40 MG TABLET PO SCH (17:15)
[2020-07-02] MEDS: ACETAMINOPHEN 325 MG TABLET PO PRN (19:10)
[2020-07-02] MEDS: ATORVASTATIN 20 MG TABLET PO SCH (20:49)
[2020-07-02] MEDS: DULoxetine 30 MG CAPSULE PO SCH (20:50)
[2020-07-02] MEDS ORDERED: INSULIN GLARGINE, HUMAN 1 UNIT/0.01 ML SQ SCH (21:00)
[2020-07-02] MEDS: INSULIN GLARGINE, HUMAN 1 UNIT/0.01 ML SQ SCH (21:34)
[2020-07-03] MEDS: morphine 2 MG/ML VIAL IV PRN ×2 (00:21→07:54)
[2020-07-03] MEDS: 0.9 % SODIUM CHLORIDE 10 ML SYRINGE IV SCH ×3 (05:31→22:26)
[2020-07-03] MEDS: PIPERACILLIN SODIUM/TAZOBACTAM 2.25 GM in DEXTROSE 5% IN WATER 50 ML IV SCH ×3 (05:31→21:58)
[2020-07-03 07:05] LABS: Basophils # (Auto) 0.08 K/mcL (0.00-0.20); Basophils % (Auto) 0.9 % (0.0-2.0); Eosinophils # (Auto) 0.44 K/mcL (0.00-0.70); Eosinophils % (Auto) 4.7 % (0.0-7.0); Hematocrit 31.9 % (41.0-55.0); Hemoglobin 10.1 g/dL (13.5-16.5); Lymphocytes % (Auto) 8.6 % (15.0-49.0); Mean Cell Volume 93.5 fL (80.0-100.0); Mean Corpuscular HGB Conc 31.7 g/dL (31.0-36.0); Mean Platelet Volume 9.4 fL (7.4-10.4); Monocytes # (Auto) 1.09 K/mcL (0.10-0.90); Monocytes % (Auto) 11.7 % (1.0-12.0); Neutrophils % (Auto) 74.1 % (38.0-78.0); Platelet Count 244 K/mcL (140-440); RBC 3.41 M/mcL (4.50-5.90); Red Cell Distribution Width 15.3 % (11.5-14.5); WBC 9.3 K/mcL (4.5-11.0)
[2020-07-03] MEDS: cloNIDine HCL 0.1 MG TABLET PO SCH ×2 (07:27→21:58)
[2020-07-03] MEDS: FERROUS GLUCONATE 324 MG TABLET PO SCH (07:28)
[2020-07-03] MEDS: METOPROLOL SUCCINATE 50 MG TAB.XL.24H PO SCH ×2 (07:28→21:58)
[2020-07-03] MEDS: GABAPENTIN 300 MG CAPSULE PO SCH ×4 (07:29→21:57)
[2020-07-03] MEDS: FUROSEMIDE 40 MG TABLET PO SCH ×2 (07:29→17:09)
[2020-07-03] MEDS: SPIRONOLACTONE 25 MG TABLET PO SCH (07:30)
[2020-07-03] MEDS: PANTOPRAZOLE 40 MG TABLET PO SCH ×2 (07:30→17:09)
[2020-07-03] MEDS: ALLOPURINOL 100 MG TABLET PO SCH (07:30)
[2020-07-03] MEDS: FENOFIBRATE 43 MG CAPSULE PO SCH (07:30)
[2020-07-03] MEDS: ISOSORBIDE MONONITRATE 30 MG TAB.XL.24H PO SCH (07:31)
[2020-07-03] MEDS: VITAMIN D3 5,000 UNIT CAPSULE PO SCH (07:32)
[2020-07-03] MEDS: OXYBUTYNIN CHLORIDE 5 MG TAB.XL.24H PO SCH (07:32)
[2020-07-03] MEDS: ASPIRIN 81 MG TAB.CHEW PO SCH (07:32)
[2020-07-03] MEDS: DOCUSATE SODIUM 100 MG CAPSULE PO SCH ×2 (07:32→21:57)
[2020-07-03] MEDS: HEPARIN 5,000 UNIT/ML VIAL SQ SCH ×2 (07:33→21:58)
[2020-07-03 07:35] LABS: ALT/SGPT 19 U/L (<40); AST/SGOT 27 U/L (<40); Albumin 3.1 gm/dL (3.2-5.2); Albumin/Globulin Ratio 0.8 (1.0-2.3); Alkaline Phosphatase 49 U/L (39-117); Bilirubin,Total 0.7 mg/dL (0.1-1.0); Blood Urea Nitrogen 53 mg/dL (8-23); Calcium 10.4 mg/dL (8.6-10.4); Carbon Dioxide 33 mmol/L (22-30); Chloride 97 mmol/L (96-108); Glomerular Filtration Rate 20; Glucose 129 mg/dL (70-105)
[2020-07-03] MEDS: TOLTERODINE 2 MG CAP.XL.24H PO SCH (07:36)
[2020-07-03] MEDS: INSULIN LISPRO 1 UNIT/0.01 ML UNIT SQ SCH ×4 (07:41→22:29)
--- NOTE | 2020-07-03 07:42 | Infectious Disease Consult ---
HPI Data of Consult Primary Care Provider: Morris Cavanaugh MD Consult Narrative Patient Information: Note initiated : 07/03/20 at 7:39 am Service Date, if different from initiated Date: [] Patient: Neftaly Poon 74 y/o M admitted on 06/30/20 for shortness of breath, lower leg edema. Chief Complaint: [] Neftaly is a 74-year-old man with multiple medical problems. He was admitted in the hospital on June 30 for bilateral foot cellulitis. He had CHF exacerbation as well with bilateral lower extremity edema. On June 02, he had procedures completed on bilateral plantar calluses over the fourth metatarsal head regions. The procedure was completed by Dr. Chen closed with sutures. He had exacerbation of gout and approximately the same time. He was followed by Dr. Burton podiatry who actually saw him on the day of admission June 30. He was started on oral Keflex and culture taken. Left foot worse than right foot. He was subsequently admitted to the hospital on June 30 and started on IV antibiotic therapy of Zosyn and Vanco. Neftaly reports that he has had 4 procedures on each foot over the years. Dr. Bertin Jacob has been consulted from podiatry as well. CT scan of both feet have been completed on June 30. Without contrast. No osteomyelitis observed by CT scan. Evidently, MRI is unable to be obtained secondary to to the patient's coronary artery disease stenting. Admit white count was 8.8. T-max 99.9 this admission. He has a history of porcine aortic valve replacement February 23, 2015. In addition to coronary artery disease, he has diabetes with peripheral neuropathy, CHF, chronic kidney disease stage IV. His creatinine on admission was 3.7. He is also followed by Dr. Cohen from nephrology. Patient does report left foot pain more than right foot pain. Dr Dalton asked for consult Tatian. He is a positive blood culture with staph aureus 2 bottles June 30 with repeat blood cultures drawn yesterday. Echocardiogram from June 30 is pending. cc:: CC: Cali Dalton MD Review of Systems Review of systems: Generally: No acute distress. HEENT: Mouth is dry no co mplaints of sore throat or headache. No neck complaints. Pulmonary: No cough or shortness of breath. Cardiac: No current chest pain. GI: He has had problems with left lower quadrant discomfort. He is passing gas. He denies diarrhea. : No dysuria. Extremities: History of gout with lower extremity edema. Edema has improved since hospitalization. He continues to have drainage from the left foot wound. He does complain of left foot pain more than right foot pain. He is willing to be admitted to [facility] from hospital stay. PFSH PFSH All Active Problems (Updated 07/03/20 @ 07:59 by Dorian Champagne MD) Bacteremia (Acute) Sigmoid diverticulosis (Acute) Surgical wound infection (Acute) Acute on chronic congestive heart failure (Acute) Hypoxia (Acute) Chest pain (Acute) History of cholecystectomy (Chronic) Morbid obesity due to excess calories (Chronic) H/O aortic valve replacement (Chronic) 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) CKD (chronic kidney disease) stage 4, GFR 15-29 ml/min (Chronic) Localized edema due to fluid overload (Chronic) TIA (transient ischemic attack) (Acute) Dysphagia (Chronic) History of tobacco use (Chronic) Facial paresthesia (Acute) Paresthesia of left foot (Acute) Stroke (Chronic) Paroxysmal atrial fibrillation (Chronic) Chronic diastolic heart failure (Chronic) Hypertensive heart disease with heart failure (Chronic) Aortic valve disorder (Chronic) MELI (obstructive sleep apnea) (Chronic) Dermatofibroma of lower leg (Chronic) Plantar warts (Chronic) Dyspnea (Chronic) Esophageal stricture (Chronic) 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) CHCF (current) use of insulin (Chronic) Thoracic back pain (Chronic) Pure hypercholesterolemia (Chronic) Male urinary stress incontinence (Chronic) Incontinence (Chronic) Depression (Chronic) Asthma (Chronic) Obstructive nephropathy (Chronic) Insomnia (Chronic) BPH with urinary obstruction (Chronic) Vitamin D deficiency (Chronic) Overactive bladder (Chronic) Gastroesophageal reflux (Chronic) Cervicalgia (Chronic) Benign prostatic hyperplasia with lower urinary tract symptoms (Chronic 10/16/13) Medical History (Updated 07/03/20 @ 07:59 by Dorian Champagne MD) Acute kidney injury superimposed on CKD Acute on chronic renal failure Acute renal failure Anemia Aortic valve disorder Asthma Atypical chest pain Benign paroxysmal positional vertigo Benign prostatic hyperplasia with lower urinary tract symptoms (10/16/13) Trial of 2 to 3 days off of tamsulosin and if no change in voiding pattern stay off of it Bicuspid aortic valve history of BPH with urinary obstruction Cervicalgia Chest heaviness Cholelithiasis Chronic diastolic heart failure Constipation Depression Dermatofibroma of lower leg Diabetes mellitus with neuropathy Comorbid risk factor. Dysphagia Dyspnea Esophageal stricture Gastroesophageal reflux Generalized abdominal pain GI bleed History of coronary angiogram 11/2013 and 02/02/2015 per patient. 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 H/O aortic valve replacement with porcine valve (02/23/15) History of cataract surgery (~2014) History of cholecystectomy History of repair of hiatal hernia (~1990) Stents 1994, 2004, 1990, 2012 History of surgery Bone spur fascitis release right foot History of surgery Removed tarsal nerve History of transurethral resection of prostate (~2015) Hx of colonoscopy (04/27/16) 2001 Hx of foot surgery right Hx of shoulder surgery 2003 right, left in 1973 Hx of tonsillectomy (~1960) Status post right foot surgery (07/17/08) bone spur and plantar fasciitis release, removal of tarsal nerve Family History none listed Depression Type 2 diabetes mellitus Hypercholesterolemia Hypertension Acute myocardial infarction Father , age 88 H/O heart bypass surgery Depression Type 2 diabetes mellitus Hypercholesterolemia Hypertension Acute myocardial infarction High cholesterol Mother , age 84 Heart disease History of angina Hypertension High cholesterol History of diabetes mellitus Depression Social History marital status: occupational status: retired physical activity: other details: Regular routine smoking status: Former smoker smoking status stop date: 03/13/83 alcohol intake frequency: a few times a week substance use type: does not use MEDS/ALLERGIES Home Medications and Allergies Home Medications Medication Instructions Recorded Confirmed Type aspirin 81 mg tablet,delayed 81 mg PO QDAY 01/13/15 06/30/20 History release nitroglycerin 0.4 mg sublingual 0.4 mg SUBLINGUAL Q5-15MIN PRN 01/13/15 06/30/20 History tablet cholecalciferol (vitamin D3) 125 5,000 unit PO QDAY 11/05/18 06/30/20 History mcg (5,000 unit) capsule ketoconazole 2 % shampoo 1 applic TOPICAL DAILYP PRN 11/05/18 06/30/20 History furosemide 80 mg tablet 80 mg PO BID 04/02/19 06/30/20 History CPAP #1 ea 04/04/19 06/30/20 History rosuvastatin 10 mg tablet 10 mg PO QHS tab 05/27/19 06/30/20 History gabapentin 300 mg capsule See Rx Instructions .ROUTE 10/01/19 06/30/20 History .COMPLEX cap mometasone 1 applic TOPICAL QDAY PRN 11/16/19 06/30/20 History ferrous gluconate 324 mg (37.5 mg 324 mg PO QDAY #90 tab 12/02/19 06/30/20 Rx iron) tablet isosorbide mononitrate 30 mg 30 mg PO QAM 12/02/19 06/30/20 History tablet,extended release 24 hr metoprolol succinate 50 mg 75 mg PO BID tab 12/02/19 06/30/20 History tablet,extended release 24 hr fenofibrate nanocrystallized 48 mg 48 mg PO QDAY 12/03/19 06/30/20 History tablet clonidine HCl 0.1 mg tablet 0.1 mg PO BID@1800,2300 tab 12/31/19 07/01/20 History insulin regular hum U-500 conc See Rx Instructions SUB-Q TIDWMEAL 03/27/20 06/30/20 History ml duloxetine 60 mg capsule,delayed 60 mg PO QHS #30 cap 04/07/20 06/30/20 Rx release sprinkle pantoprazole 40 mg tablet,delayed 40 mg PO BID #60 tab 04/07/20 06/30/20 Rx release spironolactone 25 mg tablet 25 mg PO QDAY #30 tab 04/30/20 06/30/20 Rx tolterodine 4 mg capsule,extended 4 mg PO QDAY 180 Days #180 cap 05/01/20 06/30/20 Rx release 24 hr oxybutynin chloride 5 mg 10 mg PO QDAY #60 tab 05/11/20 06/30/20 Rx tablet,extended release 24 hr allopurinol 100 mg tablet 150 mg PO QDAY #135 tab 06/29/20 06/30/20 Rx cephalexin 1,000 mg PO BID 06/30/20 06/30/20 History colchicine 0.3 mg PO QDAY 06/30/20 06/30/20 History Allergies Allergy/AdvReac Type Severity Reaction Status Date / Time clopidogrel [From PLAVIX] Allergy Mild HIVES Verified 06/30/20 15:41 indomethacin AdvReac Intermediate Severe Verified 07/01/20 06:35 Edema niacin [NIACIN] AdvReac Mild RASH, Verified 06/30/20 15:41 HIVES WITH HIGH DOSES prasugrel [From Effient] AdvReac Mild Nose Bleed Verified 06/30/20 21:30 Physical Examination Vital Signs Vital signs: T-max 99.9 yesterday. No temps over 100 this hospital stay. Temp Pulse Resp BP Pulse Ox 97.8 F 57 L 15 167/84 94 07/03/20 06:01 07/03/20 06:01 07/03/20 06:01 07/03/20 04:01 07/03/20 06:01 Additional Exam Additional exam: General: No acute distress. He is lying in bed. HEENT: Mouth is dry. No lip ulcerations. EOMI PERRL sclera anicteric. Neck is supple. Lungs are clear bilaterally without rales wheezing or rhonchi. Heart: Regular rate and rhythm I do not hear a murmur. Abdomen: Obese soft positive bowel sounds. Mild left lower quadrant tenderness without rebound. Extremities: Right plantar incisional wound approximately 3 cm in length. Mild tenderness. No erythema or drainage from the site. Skin edges slightly macerated. No sutu res present. No right foot erythema. He does have right foot edema at 1+. Left foot with 2+ edema. He has significant left foot dorsal erythema. There is purulent drainage from the wound on the plantar aspect left foot fourth metatarsal head region. The wound measures approximately 3 cm x 1 cm in width. He has white blister skin formation at the lateral aspect of the third toe. Left third toe is swollen and red. Left dorsal foot is red as I press on the dorsal aspect of the foot I am able to get purulent drainage from the plantar aspect. Left foot is tender. Results Laboratory Findings CBC and BMP: 07/03/20 05:00 07/03/20 05:01 Abnormal lab findings: Abnormal Labs 06/30/20 06/30/20 06/30/20 15:49 15:49 15:49 RBC 3.52 L Hgb 10.3 L Hct 33.0 L RDW 15.0 H MPV 10.7 H Neut % (Auto) 79.6 H Lymph % (Auto) 5.6 L Arthur % (Auto) 12.2 H Lymph # (Auto) 0.49 L Arthur # (Auto) 1.07 H Carbon Dioxide BUN 71 H Creatinine 3.7 H Glucose 279 H Hemoglobin A1c Troponin T 0.04 H* NT-Pro-B Natriuret Pep 92179.0 H Albumin Globulin 3.9 H Albumin/Globulin Ratio 0.8 L Procalcitonin Urine Appearance Urine Protein Urine Urobilinogen Amorphous Crystals Urine Mucus 06/30/20 06/30/20 06/30/20 18:32 20:10 21:39 RBC Hgb Hct RDW MPV Neut % (Auto) Lymph % (Auto) Arthur % (Auto) Lymph # (Auto) Arthur # (Auto) Carbon Dioxide BUN 71 H Creatinine 3.6 H Glucose 228 H Hemoglobin A1c 7.6 H Troponin T NT-Pro-B Natriuret Pep Albumin Globulin 3.9 H Albumin/Globulin Ratio 0.8 L Procalcitonin 0.41 H Urine Appearance Hazy A Urine Protein 30 A Urine Urobilinogen 2.0 A Amorphous Crystals Few A Urine Mucus Few A 06/30/20 07/01/20 07/01/20 21:39 03:22 03:37 RBC Hgb Hct RDW MPV Neut % (Auto) Lymph % (Auto) Arthur % (Auto) Lymph # (Auto) Arthur # (Auto) Carbon Dioxide BUN 68 H Creatinine 3.9 H Glucose 249 H Hemoglobin A1c Troponin T 0.03 H 0.04 H* NT-Pro-B Natriuret Pep Albumin 3.1 L Globulin Albumin/Globulin Ratio 0.9 L Procalcitonin Urine Appearance Urine Protein Urine Urobilinogen Amorphous Crystals Urine Mucus 07/01/20 07/01/20 07/02/20 03:38 13:19 04:56 RBC 3.27 L Hgb 9.7 L Hct 30.7 L RDW 15.2 H MPV Neut % (Auto) 80.6 H Lymph % (Auto) 4.0 L Arthur % (Auto) 12.6 H Lymph # (Auto) 0.36 L Arthur # (Auto) 1.12 H Carbon Dioxide 31 H BUN 59 H Creatinine 2.8 H Glucose 188 H Hemoglobin A1c Troponin T 0.04 H* NT-Pro-B Natriuret Pep Albumin Globulin 4.2 H Albumin/Globulin Ratio 0.8 L Procalcitonin Urine Appearance Urine Protein Urine Urobilinogen Amorphous Crystals Urine Mucus 07/02/20 07/03/20 07/03/20 04:57 05:00 05:01 RBC 3.53 L 3.41 L Hgb 10.4 L 10.1 L Hct 33.0 L 31.9 L RDW 15.5 H 15.3 H MPV Neut % (Auto) 79.6 H Lymph % (Auto) 5.3 L 8.6 L Arthur % (Auto) Lymph # (Auto) 0.50 L 0.80 L Arthur # (Auto) 1.13 H 1.09 H Carbon Dioxide 33 H BUN 53 H Creatinine 3.0 H Glucose 129 H Hemoglobin A1c Troponin T NT-Pro-B Natriuret Pep Albumin 3.1 L Globulin 4.0 H Albumin/Globulin Ratio 0.8 L Procalcitonin Urine Appearance Urine Protein Urine Urobilinogen Amorphous Crystals Urine Mucus Microbiology: Microbiology 06/30/20 20:10 Blood Blood Culture - Preliminary Staphylococcus aureus 06/30/20 20:38 Blood Blood Culture - Preliminary Staphylococcus aureus 06/30/20 19:50 Foot - Left Gram Stain - Preliminary 06/30/20 19:50 Foot - Left Wound Culture - Preliminary Staphylococcus aureus Escherichia coli On June 30 white count 8.8 creatinine 3.7. On July 02 white count 9.[address] of the chest July 01 showed some pulmonary edema CT of the abdomen showed no diverticulitis. June 30 echocardiogram pending. Blood cultures June 30 204 bottles positive for staph aureus sensitivities p ending blood cultures redrawn July 02 for surveillance. Left foot wound culture from June 30 has grown E. coli and staph aureus sensitivities pending. June [address] scan of the left and right foot without contrast showed no evidence of osteomyelitis or abscess. A/P Assessment and plan (1) Surgical wound infection: Status: Acute Comment: Neftaly is a 74-year-old diabetic with multiple medical problems. He has coronary artery disease, CHF, DM with peripheral neuropathy, and chronic kidney disease stage IV. He had procedure plantar feet for calluses with surgical excision and suture placement June 02. He is currently hospital day 4 on IV Zosyn and vancomycin. Pharmacy following Vanco dosing. He has significant infection invo lving the left foot. CT scan noncontrasted of the left foot did not identify osteomyelitis but I am still concerned for deep infection within the left foot. After 4 days of IV therapy he still has significant left foot cellulitis with plantar drainage from the open wound. MRI unable to be completed secondary to previous coronary stenting. Unable to do contrast study with his chronic kidney disease stage III. He will need prolonged IV antibiotic therapy. Cultures from foot have grown a staph aureus and E. coli. Sensitivities pending. He additionally has staph aureus bacteremia in the setting of aortic valve replacement. I am expecting 6 weeks of IV antibiotic therapy and he may require oral therapy to follow. De-escalate antibiotic therapy once sensitivities are available. If s taph aureus and e coli susceptible, may be able to de-escalate to Unasyn. If MRSA not identified, DC vancomycin. He will need a PICC line. (2) Bacteremia: Status: Acute Comment: Staph aureus from blood culture June 30. Surveillance blood culture pending from July 02. Continue to monitor blood cultures till negative. Follow-up echocardiogram. If patient continues to have persistent positive blood cultures, may need to consider ANGIE. DC vancomycin if MSSA identified. (3) H/O aortic valve replacement: Status: Chronic Comment: Monitor blood cultures. (4) Diabetes mellitus with neuropathy: Status: Chronic Comment: Comorbid risk factor. 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 Follow-up on updated cultures. Further recommendations to follow based on culture results. I would be happy to see patient in follow-up in clinic. Patient is willing to go to [facility] following this hospital stay. Time Spent With Patient Time: Total time spent is greater than 50% in coordination of care (as documented) at patient's floor/unit and/or counseling patient:
[2020-07-03] MEDS: ACETAMINOPHEN 325 MG TABLET PO PRN ×2 (12:17→19:23)
[2020-07-03] MEDS ORDERED: POLYETHYLENE GLYCOL 3350 17 GM PACKET PO PRN (13:19)
--- NOTE | 2020-07-03 13:43 | Internal Med Progress Note ---
SUBJECTIVE Subjective Patient information: Note initiated : 07/03/20 at 1:34 pm Service Date, if different from initiated Date: [] Patient: Neftaly Poon 74 y/o M admitted on 06/30/20 for shortness of breath, lower leg edema. Chief Complaint: [CHF exacerbation, bacteremia, bilateral feet surgical wound infection] Overnight: Afebrile overnight. Otherwise there is no other major overnight events. Subjective: Mild SOB. Moderate sharp and cramping pain of the LUQ and LLQ. Constipation. Moderate sharp pain of bilateral feet dorsum pain. Constitutional Vitals: Vital Signs Temp Pulse Resp BP Pulse Ox 36.8 C 62 19 147/73 97 07/03/20 12:01 07/03/20 12:24 07/03/20 12:24 07/03/20 12:01 07/03/20 12:24 Period Temp Pulse Resp BP Sys/Matos Pulse Ox Last 24 Hr 36.4 C-37.3 C 54-69 11-24 111-187/57-136 89-99 Intake and Output 07/02/20 07/03/20 07/03/20 21:59 05:59 13:59 Intake Total 690 530 650 Output Total 1100 1445 700 Balance -410 -915 -50 Weight 130.816 kg Intake & Output: Intake & Output 07/02/20 07/03/20 07/03/20 21:59 05:59 13:59 Intake Total 690 530 650 Output Total 1100 1445 700 Balance -410 -915 -50 Weight 130.816 kg Intake: Nourishment/Supplement quantity 120 (ml) IV 50 50 50 Zosyn 2.25 gm In Dextrose 5% in 50 50 50 Water 50 ml @ 100 mls/hr IV Q8H [facility] Rx#:[id number] Oral 640 480 480 Output: Void Amount 1100 1445 700 Other: Meal Dinner Breakfast Percent of Meal Consumed 100% 100% Feeding Ability Independent Nourishment/Supplement name ensure Urine Appearance Clear Clear Clear Urine Color Pale Pale Bright Yellow Urine Odor Normal General appearance: cooperative and no acute distress Head Head exam: Present atraumatic and normocephalic Eye Eye exam: Present EOMI and PERRL ENT ENT exam: Present mucous membranes moist, normal exam and normal external ear exam Neck Neck exam: Present normal inspection; Absent lymphadenopathy, tenderness and thyromegaly Respiratory Respiratory exam: Absent accessory muscle use, respiratory distress and wheezes Cardiovascular Cardiovascular exam: Present normal rate and rhythm; Absent JVD GI/Abdominal GI/Abdominal exam: Present normal bowel sounds, soft and tenderness; Absent organomegaly Rectal Rectal exam: Present deferred Extremities Exam Extremities exam: Present full ROM and normal capillary refill; Absent normal inspection and tenderness Additional comments: Bilateral feet surgical site covered with wound dressing, tenderness to palpation. Neurological Exam Neurological exam: Present alert, CN II-XII intact and oriented X3; Absent motor sensory deficit Psychiatric Psychiatric exam: Present normal affect and normal mood; Absent anxious and depressed Skin Skin exam: Present dry and intact OBJ DATA Labs CBC & Chem 7: 07/03/20 05:00 07/03/20 05:01 Labs: Abnormal Lab Results 07/03/20 07/03/20 07/02/20 05:01 05:00 04:57 RBC 3.41 L 3.53 L Hgb 10.1 L 10.4 L Hct 31.9 L 33.0 L RDW 15.3 H 15.5 H MPV Neut % (Auto) 79.6 H Lymph % (Auto) 8.6 L 5.3 L [place] % (Auto) Lymph # (Auto) 0.80 L 0.50 L [place] # (Auto) 1.09 H 1.13 H Carbon Dioxide 33 H BUN 53 H Creatinine 3.0 H Glucose 129 H Hemoglobin A1c Troponin T NT-Pro-B Natriuret Pep Albumin 3.1 L Globulin 4.0 H Albumin/Globulin Ratio 0.8 L Procalcitonin Urine Appearance Urine Protein Urine Urobilinogen Amorphous Crystals Urine Mucus 07/02/20 07/01/20 07/01/20 04:56 13:19 03:38 RBC 3.27 L Hgb 9.7 L Hct 30.7 L RDW 15.2 H MPV Neut % (Auto) 80.6 H Lymph % (Auto) 4.0 L [place] % (Auto) 12.6 H Lymph # (Auto) 0.36 L [place] # (Auto) 1.12 H Carbon Dioxide 31 H BUN 59 H Creatinine 2.8 H Glucose 188 H Hemoglobin A1c Troponin T 0.04 H* NT-Pro-B Natriuret Pep Albumin Globulin 4.2 H Albumin/Globulin Ratio 0.8 L Procalcitonin Urine Appearance Urine Protein Urine Urobilinogen Amorphous Crystals Urine Mucus 07/01/20 07/01/20 06/30/20 03:37 03:22 21:39 RBC Hgb Hct RDW MPV Neut % (Auto) Lymph % (Auto) [place] % (Auto) Lymph # (Auto) [place] # (Auto) Carbon Dioxide BUN 68 H Creatinine 3.9 H Glucose 249 H Hemoglobin A1c Troponin T 0.04 H* 0.03 H NT-Pro-B Natriuret Pep Albumin 3.1 L Globulin Albumin/Globulin Ratio 0.9 L Procalcitonin Urine Appearance Urine Protein Urine Urobilinogen Amorphous Crystals Urine Mucus 06/30/20 06/30/20 06/30/20 21:39 20:10 18:32 RBC Hgb Hct RDW MPV Neut % (Auto) Lymph % (Auto) [place] % (Auto) Lymph # (Auto) [place] # (Auto) Carbon Dioxide BUN 71 H Creatinine 3.6 H Glucose 228 H Hemoglobin A1c 7.6 H Troponin T NT-Pro-B Natriuret Pep Albumin Globulin 3.9 H Albumin/Globulin Ratio 0.8 L Procalcitonin 0.41 H Urine Appearance Hazy A Urine Protein 30 A Urine Urobilinogen 2.0 A Amorphous Crystals Few A Urine Mucus Few A 06/30/20 06/30/20 06/30/20 15:49 15:49 15:49 RBC 3.52 L Hgb 10.3 L Hct 33.0 L RDW 15.0 H MPV 10.7 H Neut % (Auto) 79.6 H Lymph % (Auto) 5.6 L [place] % (Auto) 12.2 H Lymph # (Auto) 0.49 L [place] # (Auto) 1.07 H Carbon Dioxide BUN 71 H Creatinine 3.7 H Glucose 279 H Hemoglobin A1c Troponin T 0.04 H* NT-Pro-B Natriuret Pep 85645.0 H Albumin Globulin 3.9 H Albumin/Globulin Ratio 0.8 L Procalcitonin Urine Appearance Urine Protein Urine Urobilinogen Amorphous Crystals Urine Mucus Meds: Medications Acetaminophen (Acetaminophen 325 Mg Tablet) 650 mg PO Q6HP PRN; Protocol PRN Reason: Per Pain Protocol/Fever > 101 Last Admin: 07/03/20 12:17 Dose: 650 mg Documented by: Albuterol/Ipratropium (Ipratropium/Albuterol 3 Ml Ampul.Neb) 3 ml NEB Q4HP PRN PRN Reason: Wheezing Allopurinol (Allopurinol 100 Mg Tablet) 150 mg PO QDAY [facility] Last Admin: 07/03/20 07:30 Dose: 150 mg Documented by: Aspirin (Aspirin 81 Mg Tab.Chew) 81 mg PO DAILY [facility] Last Admin: 07/03/20 07:32 Dose: 81 mg Documented by: Atorvastatin Calcium (Atorvastatin 20 Mg Tablet) 20 mg PO [facility] Last Admin: 07/02/20 20:49 Dose: 20 mg Documented by: Clonidine HCl (Clonidine Hcl 0.1 Mg Tablet) 0.1 mg PO BID [facility] Last Admin: 07/03/20 07:27 Dose: 0.1 mg Documented by: Dextrose (Dextrose 50% 50 Ml Vial) 0 ml IV UD PRN PRN Reason: Hypoglycemia Diagnostic Test (Pha) (Accu-Chek 1 Each Strip) 1 each FS ACHS [facility] Last Admin: 07/03/20 12:08 Dose: 1 each Documented by: Docusate Sodium (Docusate Sodium 100 Mg Capsule) 100 mg PO BID [facility] Last Admin: 07/03/20 07:32 Dose: 100 mg Documented by: Duloxetine HCl (Duloxetine 30 Mg Capsule) 60 mg PO QHS [facility] Last Admin: 07/02/20 20:50 Dose: 60 mg Documented by: Fenofibrate (Fenofibrate 43 Mg Capsule) 43 mg PO DAILY [facility] Last Admin: 07/03/20 07:30 Dose: 43 mg Documented by: Ferrous Gluconate (Ferrous Gluconate 324 Mg Tablet) 324 mg PO [facility] Last Admin: 07/03/20 07:28 Dose: 324 mg Documented by: Furosemide (Furosemide 40 Mg Tablet) 40 mg PO BIDD [facility] Last Admin: 07/03/20 07:29 Dose: 40 mg Documented by: Gabapentin (Gabapentin 300 Mg Capsule) 300 mg PO TID@0800,1200,1700 [facility] Last Admin: 07/03/20 12:18 Dose: 300 mg Documented by: Gabapentin (Gabapentin 300 Mg Capsule) 600 mg PO [facility] Last Admin: 07/02/20 20:55 Dose: 600 mg Documented by: Glucose (Dextrose 31 Gm Oral.Susp) 15 gm PO PRN PRN PRN Reason: Hypoglycemia Heparin Sodium (Porcine) (Heparin 5,000 Unit/Ml Vial) 5,000 unit SQ Q12 [facility] Last Admin: 07/03/20 07:33 Dose: 5,000 unit Documented by: Piperacillin Sod/Tazobactam (Sod 2.25 gm/ Dextrose) 50 mls @ 100 mls/hr IV Q8H [facility]; Protocol Last Infusion: 07/03/20 06:01 Dose: Infused Documented by: Insulin Glargine (Insulin Glargine, Human 1 Unit/0.01 Ml) 80 unit SQ HS [facility] Last Admin: 07/02/20 21:34 Dose: 80 units Documented by: Insulin Human Lispro (Insulin Lispro 1 Unit/0.01 Ml Unit) 0 unit SQ ACHS [facility]; Protocol Last Admin: 07/03/20 12:09 Dose: 6 units Documented by: Isosorbide Mononitrate (Isosorbide Mononitrate 30 Mg Tab.Xl.24h) 30 mg PO QAM [facility] Last Admin: 07/03/20 07:31 Dose: 30 mg Documented by: Lactulose (Lactulose 20 Gm/30 Ml Oral.Mia) 10 gm PO DAILYP PRN PRN Reason: Constipation Metoprolol Succinate (Metoprolol Succinate 50 Mg Tab.Xl.24h) 75 mg PO BID [facility] Last Admin: 07/03/20 07:28 Dose: 75 mg Documented by: Morphine Sulfate (Morphine 2 Mg/Ml Vial) 2 mg IV Q4HP PRN; Protocol PRN Reason: Per Pain Protocol Last Admin: 07/03/20 07:54 Dose: 2 mg Documented by: Nitroglycerin (Nitroglycerin 0.4 Mg Tab.Subl) 0.4 mg SL Q5M PRN PRN Reason: Chest Pain Ondansetron HCl (Ondansetron 4 Mg/2 Ml Vial) 4 mg IV Q4HP PRN; Protocol PRN Reason: Nausea And Vomiting Oxybutynin Chloride (Oxybutynin Chloride 5 Mg Tab.Xl.24h) 10 mg PO QDAY [facility] Last Admin: 07/03/20 07:32 Dose: 10 mg Documented by: Pantoprazole Sodium (Pantoprazole 40 Mg Tablet) 40 mg PO BIDAC [facility] Last Admin: 07/03/20 07:30 Dose: 40 mg Documented by: Mometasone 0.1 % (Ointment) 1 dose TOPICAL QDAY PRN PRN Reason: Ear Wax Ketoconazole 120 Ml (Shampoo) 1 dose TOPICAL DAILYP PRN PRN Reason: DERMATITIS Polyethylene Glycol (Polyethylene Glycol 3350 17 Gm Packet) 17 gm PO DAILYP PRN PRN Reason: Constipation Senna (Sennosides 1 Tablet) 2 tab PO HSP PRN PRN Reason: Constipation Last Admin: 07/01/20 21:43 Dose: 2 tab Documented by: Sodium Chloride (0.9 % Sodium Chloride 10 Ml Syringe) 10 ml IV Q8 [facility] Last Admin: 07/03/20 05:31 Dose: 10 ml Documented by: Spironolactone (Spironolactone 25 Mg Tablet) 25 mg PO QDAY [facility] Last Admin: 07/03/20 07:30 Dose: 25 mg Documented by: Tolterodine Tartrate (Tolterodine 2 Mg Cap.Xl.24h) 4 mg PO QDAY [facility] Last Admin: 07/03/20 07:36 Dose: 4 mg Documented by: Vancomycin HCl (Vancomycin Per Pharmacy) 1 order IV UD [facility]; Protocol Vitamin D (Vitamin D3 5,000 Unit Capsule) 5,000 unit PO DAILY [facility] Last Admin: 07/03/20 07:32 Dose: 5,000 unit Documented by: A/P Assessment and plan (1) CKD (chronic kidney disease) stage 4, GFR 15-29 ml/min: Status: Chronic Comment: Pharmacy managing renal dosing of antibiotics. Follow-up on updated cultures. Further recommendations to follow based on culture results. I would be happy to see patient in follow-up in clinic. Patient is willing to go to [facility]dc facility following this hospital stay. 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 (4) Morbid obesity due to excess calories: Status: Chronic (5) Chest pain: Status: Acute Qualifiers: Chest pain type: precordial pain Qualified Code(s): R07.2 - Precordial pain (6) Acute on chronic congestive heart failure: Status: Acute Qualifiers: Heart failure type: unspecified Qualified Code(s): I50.9 - Heart failure, unspecified (7) MELI (obstructive sleep apnea): Status: Chronic (8) Surgical wound infection: Status: Acute Comment: Neftaly is a 74-year-old diabetic with multiple medical problems. He has coronary artery disease, CHF, DM with peripheral neuropathy, and chronic kidney disease stage IV. He had procedure plantar feet for calluses with surgical excision and suture placement June 02. He is currently hospital day 4 on IV Zosyn and vancomycin. Pharmacy following Vanco dosing. He has significant infection involving the left foot. CT scan noncontrasted of the left foot did not identify osteomyelitis but I am still concerned for deep infection within the left foot. After 4 days of IV therapy he still has significant left foot cellulitis with plantar drainage from the open wound. MRI unable to be completed secondary to previous coronary stenting. Unable to do contrast study with his chronic kidney disease stage III. He will need prolonged IV antibiotic therapy. Cultures from foot have grown a staph aureus and E. coli. Sensitivities pending. He additi onally has staph aureus bacteremia in the setting of aortic valve replacement. I am expecting 6 weeks of IV antibiotic therapy and he may require oral therapy to follow. De-escalate antibiotic therapy once sensitivities are available. If staph aureus and e coli susceptible, may be able to de-escalate to Unasyn. If MRSA not identified, DC vancomycin. He will need a PICC line. (9) Sigmoid diverticulosis: Status: Acute (10) Bacteremia: Status: Acute Comment: Staph aureus from blood culture June 30. Surveillance blood culture pending from July 02. Continue to monitor blood cultures till negative. Follow-up echocardiogram. If patient continues to have persistent positive blood cultures, may need to consider ANGIE. DC vancomycin if MSSA identified. Narrative A/P Narrative: 1. CHF exacerbation: Stays in inpatient PCU 2L/day fluid restriction Daily weigh Intake and output Lasix 40mg PO BID Continue beta jennifer and Aldactone, and ACEi/ARB Supplemental oxygen via nasal cannula titrate to achieve oxygen satuation >=92% 2D echocardiogram-->LVEF 66%, no evidence of diastolic dysfunction PT/OT evaluation and treatment for placement planning -->likely need SNF placement 2. S aureus bacteremia: ID Dr. Champagne consulted, resc. appreciated Repeat blood culture no growth to date 2D echo no signs of endocarditis Vancomycin Zosyn cbc w/ auto diff in the morning to trend WBC 3. h/o sigmoid diverticulosis with ongoing abdominal pain: CT abdomen pelvis w/o contrast-->no abscess, diverticulosis, or bowel perforation Morphine IV PRN severe pain 4. Bilateral feet surgical wound infection: Consult seafood packer Dr. Jacob, recs. appreciated Cannot perform MRI since it is not compatible with stent Consider repeating CT to see any acute / chronic osteomyelitis to help determine the length of the antibiotics therapy CT bilateral feet w/o contrast--> no abscess or osteomyelitis Morphine IV PRN severe pain Blood culture from date of admission: grew S aureus 2D echo no signs of endocarditis Repeat Blood culture X2 today Wound culture, S aureus and E coli Serial lactic acid Procalcitonin cbc w/ auto diff in the AM to trend WBC Wound care consult ordered 5. T2DM: HgA1c Hold oral hypoglycemics High dose sliding scale insulin AC HS Insulin Lantus 80 unit HS Accu Chec AC HS Hypoglycemia protocol Diabetic diet 6. CKD stage 4: Avoid nephrotoxic agents Saline lock CMP in the AM to trend kidney functions Avoid IV contrast If kidney functions worsen, will consult Dr. Cheung 7. MELI on CPAP: Continue CPAP at night while sleeping 8. g/o gout: It is okay to continue allopurinol since there is no evidence of active gout PT/OT evaluation and treatment for placement planning Time Spent With Patient Time: Total time spent is greater than 50% in coordination of care (as documented) at patient's floor/unit and/or counseling patient: QUALITY VTE Deep Vein Thrombosis/Pulmonary Embolism Present on Admission: No
[2020-07-03] MEDS ORDERED: VANCOMYCIN 1,000 MG in 0.9 % SODIUM CHLORIDE 250 ML IV ONE (14:30)
[2020-07-03] MEDS: ATORVASTATIN 20 MG TABLET PO SCH (21:57)
[2020-07-03] MEDS: DULoxetine 30 MG CAPSULE PO SCH (21:58)
[2020-07-03] MEDS: INSULIN GLARGINE, HUMAN 1 UNIT/0.01 ML SQ SCH (22:30)
[2020-07-04] MEDS: ACETAMINOPHEN 325 MG TABLET PO PRN ×3 (01:45→21:15)
[2020-07-04] MEDS: 0.9 % SODIUM CHLORIDE 10 ML SYRINGE IV SCH ×3 (05:53→21:17)
[2020-07-04] MEDS: PIPERACILLIN SODIUM/TAZOBACTAM 2.25 GM in DEXTROSE 5% IN WATER 50 ML IV SCH ×3 (05:53→21:16)
[2020-07-04] MEDS: FERROUS GLUCONATE 324 MG TABLET PO SCH (08:03)
[2020-07-04] MEDS: PANTOPRAZOLE 40 MG TABLET PO SCH ×2 (08:03→17:34)
[2020-07-04] MEDS: FUROSEMIDE 40 MG TABLET PO SCH ×2 (08:03→16:14)
[2020-07-04] MEDS: GABAPENTIN 300 MG CAPSULE PO SCH ×4 (08:04→21:13)
[2020-07-04] MEDS: INSULIN LISPRO 1 UNIT/0.01 ML UNIT SQ SCH ×4 (08:14→21:14)
[2020-07-04 08:40] LABS: ALT/SGPT 16 U/L (<40); AST/SGOT 23 U/L (<40); Albumin 3.2 gm/dL (3.2-5.2); Albumin/Globulin Ratio 0.7 (1.0-2.3); Alkaline Phosphatase 52 U/L (39-117); Bilirubin,Total 0.6 mg/dL (0.1-1.0); Blood Urea Nitrogen 53 mg/dL (8-23); Calcium 10.2 mg/dL (8.6-10.4); Carbon Dioxide 32 mmol/L (22-30); Chloride 96 mmol/L (96-108); Globulin 4.3 gm/dL (2.2-3.7); Glomerular Filtration Rate 22; Glucose 144 mg/dL (70-105)
[2020-07-04] MEDS: VITAMIN D3 5,000 UNIT CAPSULE PO SCH (08:53)
[2020-07-04] MEDS: METOPROLOL SUCCINATE 50 MG TAB.XL.24H PO SCH ×2 (08:53→21:15)
[2020-07-04] MEDS: DOCUSATE SODIUM 100 MG CAPSULE PO SCH ×2 (08:53→21:13)
[2020-07-04] MEDS: OXYBUTYNIN CHLORIDE 5 MG TAB.XL.24H PO SCH (08:54)
[2020-07-04] MEDS: FENOFIBRATE 43 MG CAPSULE PO SCH (08:54)
[2020-07-04] MEDS: SPIRONOLACTONE 25 MG TABLET PO SCH (08:54)
[2020-07-04] MEDS: cloNIDine HCL 0.1 MG TABLET PO SCH ×2 (08:54→21:14)
[2020-07-04] MEDS: ISOSORBIDE MONONITRATE 30 MG TAB.XL.24H PO SCH (08:54)
[2020-07-04] MEDS: ALLOPURINOL 100 MG TABLET PO SCH (08:54)
[2020-07-04] MEDS: ASPIRIN 81 MG TAB.CHEW PO SCH (08:54)
[2020-07-04] MEDS: HEPARIN 5,000 UNIT/ML VIAL SQ SCH ×2 (08:55→21:14)
[2020-07-04] MEDS: TOLTERODINE 2 MG CAP.XL.24H PO SCH (08:59)
[2020-07-04 09:07] LABS: Basophils # (Auto) 0.09 K/mcL (0.00-0.20); Basophils % (Auto) 0.8 % (0.0-2.0); Eosinophils # (Auto) 0.53 K/mcL (0.00-0.70); Eosinophils % (Auto) 4.6 % (0.0-7.0); Hematocrit 35.3 % (41.0-55.0); Lymphocytes # (Auto) 0.89 K/mcL (1.50-4.80); Lymphocytes % (Auto) 7.7 % (15.0-49.0); Mean Cell Volume 94.4 fL (80.0-100.0); Mean Corpuscular HGB Conc 31.2 g/dL (31.0-36.0); Mean Platelet Volume 9.3 fL (7.4-10.4); Monocytes # (Auto) 1.09 K/mcL (0.10-0.90); Monocytes % (Auto) 9.4 % (1.0-12.0); Neutrophils % (Auto) 77.5 % (38.0-78.0); Platelet Count 271 K/mcL (140-440); RBC 3.74 M/mcL (4.50-5.90); Red Cell Distribution Width 15.3 % (11.5-14.5); WBC 11.6 K/mcL (4.5-11.0)
--- NOTE | 2020-07-04 10:56 | Internal Med Progress Note ---
SUBJECTIVE Subjective Patient information: Note initiated : 07/04/20 at 10:52 am Service Date, if different from initiated Date: [] Patient: Neftaly Poon 74 y/o M admitted on 06/30/20 for shortness of breath, lower leg edema. Chief Complaint: [CHF exacerbation. Bacteremia. Bilateral feet surgical sites infection] Overnight: Afebrile. Been on 1L/min supplemental oxygen throughout the night. No bowel movement yet. Subjective: Denies SOB. Denies cough or wheezing. Denies fever or chills. Mild to moderate cramping abdominal pain of the LUQ and LLQ abdomen. Moderate sharp pain bilateral feet around the surgical sites. Constitutional Vitals: Vital Signs Temp Pulse Resp BP Pulse Ox 36.6 C 57 L 14 164/97 94 07/04/20 08:01 07/04/20 08:01 07/04/20 08:01 07/04/20 08:01 07/04/20 08:01 Period Temp Pulse Resp BP Sys/Matos Pulse Ox Last 24 Hr 36.6 C-36.9 C 50-68 10- 129-168/63-101 90-97 Intake and Output 07/03/20 07/04/20 07/04/20 21:59 05:59 13:59 Intake Total 780 50 290 Output Total 350 1750 850 Balance 430 -1700 -560 Weight 129.727 kg Intake & Output: Intake & Output 07/03/20 07/04/20 07/04/20 21:59 05:59 13:59 Intake Total 780 50 290 Output Total 350 1750 850 Balance 430 -1700 -560 Weight 129.727 kg Intake: Nourishment/Supplement quantity 120 (ml) IV 300 50 50 Zosyn 2.25 gm In Dextrose 5% in 50 50 50 Water 50 ml @ 100 mls/hr IV Q8H [facility] Rx#:[id number] Vancomycin 1,000 mg In Sodium 250 Chloride 0.9% 250 ml @ 250 mls/ hr IV ONCE ONE Rx#:[id number] Oral 360 240 Output: Void Amount 350 1750 850 Other: Meal Dinner Breakfast Percent of Meal Consumed 100% 100% Feeding Ability Assist with Tray Set Up Nourishment/Supplement name ensure Urine Appearance Clear Clear Clear Urine Color Dark Yellow Pale Bright Yellow Urine Odor Normal General appearance: cooperative and no acute distress Head Head exam: Present atraumatic and normocephalic Eye Eye exam: Present EOMI and PERRL ENT ENT exam: Present mucous membranes moist, normal exam and normal external ear exam Neck Neck exam: Present normal inspection; Absent lymphadenopathy, tenderness and thyromegaly Respiratory Respiratory exam: Absent accessory muscle use, respiratory distress and wheezes Cardiovascular Cardiovascular exam: Present normal rate and rhythm; Absent JVD GI/Abdominal GI/Abdominal exam: Present normal bowel sounds, soft and tenderness; Absent organomegaly Rectal Rectal exam: Present deferred Extremities Exam Extremities exam: Present full ROM, normal capillary refill and normal inspection; Absent tenderness Neurological Exam Neurological exam: Present alert, CN II-XII intact and oriented X3; Absent motor sensory deficit Psychiatric Psychiatric exam: Present normal affect and normal mood; Absent anxious and depressed Skin Skin exam: Present dry; Absent intact Additional comments: Bilateral dorsum of the feet presence of surgical sites, with tenderness to palpation and erythema. Covered with wound dressing. OBJ DATA Labs CBC & Chem 7: 07/04/20 05:34 07/04/20 05:34 Labs: Abnormal Lab Results 07/04/20 07/04/20 07/03/20 05:34 05:34 05:01 WBC 11.6 H RBC 3.74 L Hgb 11.0 L Hct 35.3 L RDW 15.3 H Neut % (Auto) Lymph % (Auto) 7.7 L Lymph # (Auto) 0.89 L [place] # (Auto) 1.09 H Absolute Neutrophils 8.99 H Carbon Dioxide 32 H 33 H BUN 53 H 53 H Creatinine 2.7 H 3.0 H Glucose 144 H 129 H Troponin T Albumin 3.1 L Globulin 4.3 H 4.0 H Albumin/Globulin Ratio 0.7 L 0.8 L 07/03/20 07/02/20 07/02/20 05:00 04:57 04:56 WBC RBC 3.41 L 3.53 L Hgb 10.1 L 10.4 L Hct 31.9 L 33.0 L RDW 15.3 H 15.5 H Neut % (Auto) 79.6 H Lymph % (Auto) 8.6 L 5.3 L Lymph # (Auto) 0.80 L 0.50 L [place] # (Auto) 1.09 H 1.13 H Absolute Neutrophils Carbon Dioxide 31 H BUN 59 H Creatinine 2.8 H Glucose 188 H Troponin T Albumin Globulin 4.2 H Albumin/Globulin Ratio 0.8 L 07/01/20 13:19 WBC RBC Hgb Hct RDW Neut % (Auto) Lymph % (Auto) Lymph # (Auto) [place] # (Auto) Absolute Neutrophils Carbon Dioxide BUN Creatinine Glucose Troponin T 0.04 H* Albumin Globulin Albumin/Globulin Ratio Meds: Medications Acetaminophen (Acetaminophen 325 Mg Tablet) 650 mg PO Q6HP PRN; Protocol PRN Reason: Per Pain Protocol/Fever > 101 Last Admin: 07/04/20 01:45 Dose: 650 mg Documented by: Albuterol/Ipratropium (Ipratropium/Albuterol 3 Ml Ampul.Neb) 3 ml NEB Q4HP PRN PRN Reason: Wheezing Allopurinol (Allopurinol 100 Mg Tablet) 150 mg PO QDAY [facility] Last Admin: 07/04/20 08:54 Dose: 150 mg Documented by: Aspirin (Aspirin 81 Mg Tab.Chew) 81 mg PO DAILY [facility] Last Admin: 07/04/20 08:54 Dose: 81 mg Documented by: Atorvastatin Calcium (Atorvastatin 20 Mg Tablet) 20 mg PO HS [facility] Last Admin: 07/03/20 21:57 Dose: 20 mg Documented by: Clonidine HCl (Clonidine Hcl 0.1 Mg Tablet) 0.1 mg PO BID [facility] Last Admin: 07/04/20 08:54 Dose: 0.1 mg Documented by: Dextrose (Dextrose 50% 50 Ml Vial) 0 ml IV UD PRN PRN Reason: Hypoglycemia Diagnostic Test (Pha) (Accu-Chek 1 Each Strip) 1 each FS ACHS [facility] Last Admin: 07/04/20 08:07 Dose: 1 each Documented by: Docusate Sodium (Docusate Sodium 100 Mg Capsule) 100 mg PO BID [facility] Last Admin: 07/04/20 08:53 Dose: 100 mg Documented by: Duloxetine HCl (Duloxetine 30 Mg Capsule) 60 mg PO QHS [facility] Last Admin: 07/03/20 21:58 Dose: 60 mg Documented by: Fenofibrate (Fenofibrate 43 Mg Capsule) 43 mg PO DAILY [facility] Last Admin: 07/04/20 08:54 Dose: 43 mg Documented by: Ferrous Gluconate (Ferrous Gluconate 324 Mg Tablet) 324 mg PO [facility] Last Admin: 07/04/20 08:03 Dose: 324 mg Documented by: Furosemide (Furosemide 40 Mg Tablet) 40 mg PO BIDD [facility] Last Admin: 07/04/20 08:03 Dose: 40 mg Documented by: Gabapentin (Gabapentin 300 Mg Capsule) 300 mg PO TID@0800,1200,1700 [facility] Last Admin: 07/04/20 08:04 Dose: 300 mg Documented by: Gabapentin (Gabapentin 300 Mg Capsule) 600 mg PO HS [facility] Last Admin: 07/03/20 21:57 Dose: 600 mg Documented by: Glucose (Dextrose 31 Gm Oral.Susp) 15 gm PO PRN PRN PRN Reason: Hypoglycemia Heparin Sodium (Porcine) (Heparin 5,000 Unit/Ml Vial) 5,000 unit SQ Q12 [facility] Last Admin: 07/04/20 08:55 Dose: 5,000 unit Documented by: Piperacillin Sod/Tazobactam (Sod 2.25 gm/ Dextrose) 50 mls @ 100 mls/hr IV Q8H [facility]; Protocol Last Infusion: 07/04/20 06:23 Dose: Infused Documented by: Insulin Glargine (Insulin Glargine, Human 1 Unit/0.01 Ml) 80 unit SQ [facility] Last Admin: 07/03/20 22:30 Dose: 80 units Documented by: Insulin Human Lispro (Insulin Lispro 1 Unit/0.01 Ml Unit) 0 unit SQ [facility]; Protocol Last Admin: 07/04/20 08:14 Dose: 6 units Documented by: Isosorbide Mononitrate (Isosorbide Mononitrate 30 Mg Tab.Xl.24h) 30 mg PO QAM [facility] Last Admin: 07/04/20 08:54 Dose: 30 mg Documented by: Lactulose (Lactulose 20 Gm/30 Ml Oral.Mia) 10 gm PO DAILYP PRN PRN Reason: Constipation Metoprolol Succinate (Metoprolol Succinate 50 Mg Tab.Xl.24h) 75 mg PO BID [facility] Last Admin: 07/04/20 08:53 Dose: 75 mg Documented by: Morphine Sulfate (Morphine 2 Mg/Ml Vial) 2 mg IV Q4HP PRN; Protocol PRN Reason: Per Pain Protocol Last Admin: 07/03/20 07:54 Dose: 2 mg Documented by: Nitroglycerin (Nitroglycerin 0.4 Mg Tab.Subl) 0.4 mg SL Q5M PRN PRN Reason: Chest Pain Ondansetron HCl (Ondansetron 4 Mg/2 Ml Vial) 4 mg IV Q4HP PRN; Protocol PRN Reason: Nausea And Vomiting Oxybutynin Chloride (Oxybutynin Chloride 5 Mg Tab.Xl.24h) 10 mg PO QDAY [facility] Last Admin: 07/04/20 08:54 Dose: 10 mg Documented by: Pantoprazole Sodium (Pantoprazole 40 Mg Tablet) 40 mg PO BIDAC [facility] Last Admin: 07/04/20 08:03 Dose: 40 mg Documented by: Mometasone 0.1 % (Ointment) 1 dose TOPICAL QDAY PRN PRN Reason: Ear Wax Ketoconazole 120 Ml (Shampoo) 1 dose TOPICAL DAILYP PRN PRN Reason: DERMATITIS Polyethylene Glycol (Polyethylene Glycol 3350 17 Gm Packet) 17 gm PO DAILYP PRN PRN Reason: Constipation Senna (Sennosides 1 Tablet) 2 tab PO HSP PRN PRN Reason: Constipation Last Admin: 07/01/20 21:43 Dose: 2 tab Documented by: Sodium Chloride (0.9 % Sodium Chloride 10 Ml Syringe) 10 ml IV Q8 [facility] Last Admin: 07/04/20 05:53 Dose: 10 ml Documented by: Spironolactone (Spironolactone 25 Mg Tablet) 25 mg PO QDAY [facility] Last Admin: 07/04/20 08:54 Dose: 25 mg Documented by: Tolterodine Tartrate (Tolterodine 2 Mg Cap.Xl.24h) 4 mg PO QDAY [facility] Last Admin: 07/04/20 08:59 Dose: 4 mg Documented by: Vancomycin HCl (Vancomycin Per Pharmacy) 1 order IV UD [facility]; Protocol Vitamin D (Vitamin D3 5,000 Unit Capsule) 5,000 unit PO DAILY [facility] Last Admin: 07/04/20 08:53 Dose: 5,000 unit Documented by: A/P Assessment and plan (1) CKD (chronic kidney disease) stage 4, GFR 15-29 ml/min: Status: Chronic Comment: Pharmacy managing renal dosing of antibiotics. Follow-up on updated cultures. Further recommendations to follow based on culture results. I would be happy to see patient in follow-up in clinic. Patient is willing to go to retirement facility following this hospital stay. 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 (4) Morbid obesity due to excess calories: Status: Chronic (5) Chest pain: Status: Acute Qualifiers: Chest pain type: precordial pain Qualified Code(s): R07.2 - Precordial pain (6) Acute on chronic congestive heart failure: Status: Acute Qualifiers: Heart failure type: unspecified Qualified Code(s): I50.9 - Heart failure, unspecified (7) MELI (obstructive sleep apnea): Status: Chronic (8) Surgical wound infection: Status: Acute Comment: Neftaly is a 74-year-old diabetic with multiple medical problems. He has coronary artery disease, CHF, DM with peripheral neuropathy, and chronic kidney disease stage IV. He had procedure plantar feet for calluses with surgical excision and suture placement June 02. He is currently hospital day 4 on IV Zosyn and vancomycin. Pharmacy following Vanco dosing. He has significant infection involving the left foot. CT scan noncontrasted of the left foot did not identify osteomyelitis but I am still concerned for deep infection within the left foot. After 4 days of IV therapy he still has significant left foot cellulitis with plantar drainage from the open wound. MRI unable to be completed secondary to previous coronary stenting. Unable to do contrast study with his chronic kidney disease stage III. He will need prolonged IV antibiotic therapy. Cultures from foot have grown a staph aureus and E. coli. Sensitivities pending. He additionally has staph aureus bacteremia in the setting of aortic valve replacement. I am expect ing 6 weeks of IV antibiotic therapy and he may require oral therapy to follow. De-escalate antibiotic therapy once sensitivities are available. If staph aureus and e coli susceptible, may be able to de-escalate to Unasyn. If MRSA not identified, DC vancomycin. He will need a PICC line. (9) Sigmoid diverticulosis: Status: Acute (10) Bacteremia: Status: Acute Comment: Staph aureus from blood culture June 30. Surveillance blood culture pending from July 02. Continue to monitor blood cultures till negative. Follow-up echocardiogram. If patient continues to have persistent positive blood cultures, may need to consider ANGIE. DC vancomycin if MSSA identified. Narrative A/P Narrative: 1. CHF exacerbation: Stays in inpatient PCU 2L/day fluid restriction Daily weigh Intake and output Lasix 40mg PO BID Continue beta jennifer and Aldactone, and ACEi/ARB Supplemental oxygen via nasal cannula titrate to achieve oxygen satuation >=92% 2D echocardiogram-->LVEF 66%, no evidence of diastolic dysfunction PT/OT evaluation and treatment for placement planning -->likely need SNF placement 2. S aureus bacteremia: ID Dr. Champagne consulted, resc. appreciated Repeat blood culture no growth to date 2D echo no signs of endocarditis Vancomycin Zosyn cbc w/ auto diff in the morning to trend WBC 3. h/o sigmoid diverticulosis with ongoing abdominal pain: CT abdomen pelvis w/o contrast-->no abscess, diverticulosis, or bowel perforation Morphine IV PRN severe pain 4. Bilateral feet surgical wound infection: Consult marketing researcher Dr. Jacob, recs. appreciated Cannot perform MRI since it is not compatible with stent Consider repeating CT to see any acute / chronic osteomyelitis to help determine the length of the antibiotics therapy CT bilateral feet w/o contrast--> no abscess or osteomyelitis Morphine IV PRN severe pain Blood culture from date of admission: grew S aureus 2D echo no signs of endocarditis Repeat Blood culture X2 today Wound culture, S aureus and E coli Serial lactic acid Procalcitonin cbc w/ auto diff in the AM to trend WBC Wound care consult ordered 5. T2DM: HgA1c Hold oral hypoglycemics High dose sliding scale insulin AC HS Insulin Lantus 80 unit HS Accu Chec AC HS Hypoglycemia protocol Diabetic diet 6. CKD stage 4: Avoid nephrotoxic agents Saline lock CMP in the AM to trend kidney functions Avoid IV contrast If kidney functions worsen, will consult Dr. Cheung 7. MELI on CPAP: Continue CPAP at night while sleeping 8. g/o gout: It is okay to continue allopurinol since there is no evidence of active gout PT/OT evaluation and treatment for placement planning Time Spent With Patient Time: Total time spent is greater than 50% in coordination of care (as documented) at patient's floor/unit and/or counseling patient: QUALITY VTE Deep Vein Thrombosis/Pulmonary Embolism Present on Admission: No
--- NOTE | 2020-07-04 15:08 | Internal Med Progress Note ---
SUBJECTIVE Subjective Patient information: Note initiated : 07/04/20 at 2:55 pm Service Date, if different from initiated Date: [] Patient: Neftaly Poon 74 y/o M admitted on 06/30/20 for shortness of breath, lower leg edema. Chief Complaint: [] Interval history: 07/04 Overnight: Afebrile. Been on 1L/min supplemental oxygen throughout the night. No bowel movement yet. Subjective: Denies SOB. Denies cough or wheezing. Denies fever or chills. Mild to moderate cramping abdominal pain of the LUQ and LLQ abdomen. Moderate sharp pain bilateral feet around the surgical sites. 07/05 Constitutional Vitals: Vital Signs Temp Pulse Resp BP Pulse Ox 97.9 F 65 15 142/87 96 07/04/20 12:02 07/04/20 14:01 07/04/20 14:01 07/04/20 14:01 07/04/20 14:01 Period Temp Pulse Resp BP Sys/Matos Pulse Ox Last 24 Hr 97.8 F-98.4 F 50-68 10-21 124-168/63-115 90-97 Intake and Output 07/04/20 07/04/20 07/04/20 05:59 13:59 21:59 Intake Total 50 290 Output Total 1750 850 Balance -1700 -560 Intake & Output: Intake & Output 07/04/20 07/04/20 07/04/20 05:59 13:59 21:59 Intake Total 50 290 Output Total 1750 850 Balance -1700 -560 Intake: IV 50 50 Zosyn 2.25 gm In Dextrose 5% in 50 50 Water 50 ml @ 100 mls/hr IV Q8H [facility] Rx#:[id number] Oral 240 Output: Void Amount 1750 850 # of times incontinent of urine 0 Other: Meal Breakfast Percent of Meal Consumed 100% Feeding Ability Assist with Tray Set Up Urine Appearance Clear Clear Urine Color Pale Bright Yellow # Voids 1 Exam: General: Alert, Awake, No acute Distress Eyes/N/T: EOMI, Head/Neck: neck supple, CV: RRR, No murmurs, Pulm: Clear b/l, no wheezing/rhonchi/rales Abd: soft, ttp, +BS x4 Ext: no clubbing/cyanosis/edema. b/l dorsum feet with tenderness/erythema Neuro: Alert, no focal deficits, moves all extremities, Skin: warm/dry OBJ DATA Labs CBC & Chem 7: 07/04/20 05:34 07/04/20 05:34 Labs: Abnormal Lab Results 07/04/20 07/04/20 07/03/20 05:34 05:34 05:01 WBC 11.6 H RBC 3.74 L Hgb 11.0 L Hct 35.3 L RDW 15.3 H Neut % (Auto) Lymph % (Auto) 7.7 L Lymph # (Auto) 0.89 L [place] # (Auto) 1.09 H Absolute Neutrophils 8.99 H Carbon Dioxide 32 H 33 H BUN 53 H 53 H Creatinine 2.7 H 3.0 H Glucose 144 H 129 H Troponin T Albumin 3.1 L Globulin 4.3 H 4.0 H Albumin/Globulin Ratio 0.7 L 0.8 L 07/03/20 07/02/20 07/02/20 05:00 04:57 04:56 WBC RBC 3.41 L 3.53 L Hgb 10.1 L 10.4 L Hct 31.9 L 33.0 L RDW 15.3 H 15.5 H Neut % (Auto) 79.6 H Lymph % (Auto) 8.6 L 5.3 L Lymph # (Auto) 0.80 L 0.50 L [place] # (Auto) 1.09 H 1.13 H Absolute Neutrophils Carbon Dioxide 31 H BUN 59 H Creatinine 2.8 H Glucose 188 H Troponin T Albumin Globulin 4.2 H Albumin/Globulin Ratio 0.8 L 07/01/20 13:19 WBC RBC Hgb Hct RDW Neut % (Auto) Lymph % (Auto) Lymph # (Auto) [place] # (Auto) Absolute Neutrophils Carbon Dioxide BUN Creatinine Glucose Troponin T 0.04 H* Albumin Globulin Albumin/Globulin Ratio Meds: Medications Acetaminophen (Acetaminophen 325 Mg Tablet) 650 mg PO Q6HP PRN; Protocol PRN Reason: Per Pain Protocol/Fever > 101 Last Admin: 07/04/20 13:18 Dose: 650 mg Documented by: Albuterol/Ipratropium (Ipratropium/Albuterol 3 Ml Ampul.Neb) 3 ml NEB Q4HP PRN PRN Reason: Wheezing Allopurinol (Allopurinol 100 Mg Tablet) 150 mg PO QDAY [facility] Last Admin: 07/04/20 08:54 Dose: 150 mg Documented by: Aspirin (Aspirin 81 Mg Tab.Chew) 81 mg PO DAILY [facility] Last Admin: 07/04/20 08:54 Dose: 81 mg Documented by: Atorvastatin Calcium (Atorvastatin 20 Mg Tablet) 20 mg PO [facility] Last Admin: 07/03/20 21:57 Dose: 20 mg Documented by: Clonidine HCl (Clonidine Hcl 0.1 Mg Tablet) 0.1 mg PO BID [facility] Last Admin: 07/04/20 08:54 Dose: 0.1 mg Documented by: Dextrose (Dextrose 50% 50 Ml Vial) 0 ml IV UD PRN PRN Reason: Hypoglycemia Diagnostic Test (Pha) (Accu-Chek 1 Each Strip) 1 each FS ACHS [facility] Last Admin: 07/04/20 11:58 Dose: 1 each Documented by: Docusate Sodium (Docusate Sodium 100 Mg Capsule) 100 mg PO BID [facility] Last Admin: 07/04/20 08:53 Dose: 100 mg Documented by: Duloxetine HCl (Duloxetine 30 Mg Capsule) 60 mg PO QHS [facility] Last Admin: 07/03/20 21:58 Dose: 60 mg Documented by: Fenofibrate (Fenofibrate 43 Mg Capsule) 43 mg PO DAILY [facility] Last Admin: 07/04/20 08:54 Dose: 43 mg Documented by: Ferrous Gluconate (Ferrous Gluconate 324 Mg Tablet) 324 mg PO [facility] Last Admin: 07/04/20 08:03 Dose: 324 mg Documented by: Furosemide (Furosemide 40 Mg Tablet) 40 mg PO BIDD [facility] Last Admin: 07/04/20 08:03 Dose: 40 mg Documented by: Gabapentin (Gabapentin 300 Mg Capsule) 300 mg PO TID@0800,1200,1700 [facility] Last Admin: 07/04/20 11:58 Dose: 300 mg Documented by: Gabapentin (Gabapentin 300 Mg Capsule) 600 mg PO [facility] Last Admin: 07/03/20 21:57 Dose: 600 mg Documented by: Glucose (Dextrose 31 Gm Oral.Susp) 15 gm PO PRN PRN PRN Reason: Hypoglycemia Heparin Sodium (Porcine) (Heparin 5,000 Unit/Ml Vial) 5,000 unit SQ Q12 [facility] Last Admin: 07/04/20 08:55 Dose: 5,000 unit Documented by: Piperacillin Sod/Tazobactam (Sod 2.25 gm/ Dextrose) 50 mls @ 100 mls/hr IV Q8H [facility]; Protocol Last Admin: 07/04/20 14:15 Dose: 100 mls/hr Documented by: Insulin Glargine (Insulin Glargine, Human 1 Unit/0.01 Ml) 80 unit SQ HS [facility] Last Admin: 07/03/20 22:30 Dose: 80 units Documented by: Insulin Human Lispro (Insulin Lispro 1 Unit/0.01 Ml Unit) 0 unit SQ ACHS [facility]; Protocol Last Admin: 07/04/20 11:59 Dose: 9 units Documented by: Isosorbide Mononitrate (Isosorbide Mononitrate 30 Mg Tab.Xl.24h) 30 mg PO QAM [facility] Last Admin: 07/04/20 08:54 Dose: 30 mg Documented by: Lactulose (Lactulose 20 Gm/30 Ml Oral.Mia) 10 gm PO DAILYP PRN PRN Reason: Constipation Metoprolol Succinate (Metoprolol Succinate 50 Mg Tab.Xl.24h) 75 mg PO BID [facility] Last Admin: 07/04/20 08:53 Dose: 75 mg Documented by: Morphine Sulfate (Morphine 2 Mg/Ml Vial) 2 mg IV Q4HP PRN; Protocol PRN Reason: Per Pain Protocol Last Admin: 07/03/20 07:54 Dose: 2 mg Documented by: Nitroglycerin (Nitroglycerin 0.4 Mg Tab.Subl) 0.4 mg SL Q5M PRN PRN Reason: Chest Pain Ondansetron HCl (Ondansetron 4 Mg/2 Ml Vial) 4 mg IV Q4HP PRN; Protocol PRN Reason: Nausea And Vomiting Oxybutynin Chloride (Oxybutynin Chloride 5 Mg Tab.Xl.24h) 10 mg PO QDAY [facility] Last Admin: 07/04/20 08:54 Dose: 10 mg Documented by: Pantoprazole Sodium (Pantoprazole 40 Mg Tablet) 40 mg PO BIDAC [facility] Last Admin: 07/04/20 08:03 Dose: 40 mg Documented by: Mometasone 0.1 % (Ointment) 1 dose TOPICAL QDAY PRN PRN Reason: Ear Wax Ketoconazole 120 Ml (Shampoo) 1 dose TOPICAL DAILYP PRN PRN Reason: DERMATITIS Polyethylene Glycol (Polyethylene Glycol 3350 17 Gm Packet) 17 gm PO DAILYP PRN PRN Reason: Constipation Last Admin: 07/04/20 13:31 Dose: 17 gm Documented by: Senna (Sennosides 1 Tablet) 2 tab PO HSP PRN PRN Reason: Constipation Last Admin: 07/01/20 21:43 Dose: 2 tab Documented by: Sodium Chloride (0.9 % Sodium Chloride 10 Ml Syringe) 10 ml IV Q8 [facility] Last Admin: 07/04/20 05:53 Dose: 10 ml Documented by: Spironolactone (Spironolactone 25 Mg Tablet) 25 mg PO QDAY [facility] Last Admin: 07/04/20 08:54 Dose: 25 mg Documented by: Tolterodine Tartrate (Tolterodine 2 Mg Cap.Xl.24h) 4 mg PO QDAY [facility] Last Admin: 07/04/20 08:59 Dose: 4 mg Documented by: Vancomycin HCl (Vancomycin Per Pharmacy) 1 order IV [facility]; Protocol Vitamin D (Vitamin D3 5,000 Unit Capsule) 5,000 unit PO DAILY [facility] Last Admin: 07/04/20 08:53 Dose: 5,000 unit Documented by: A/P Narrative A/P Narrative: A: *CHF exacerbation: -improving *acute hypoxic resp failur: 2/2 above -on 1L NC *Bilateral feet surgical wound infection: -WC with Staph/E coli *S aureus bacteremia: likely from above -no vegetations on TTE *h/o sigmoid diverticulosis with ongoing abdominal pain: -CT abdomen pelvis w/o contrast-->no abscess, diverticulosis, or bowel perforation * T2DM: *CKD IV: *MELI on CPAP: *g/o gout: It is okay to continue allopurinol since there is no evidence of active gout P: -Lasix now 40mg PO BID, aldactone -cont BB/imdur -ID Dr. Champagne consulted, resc. appreciated -serial BC Vancomycin/zosyn Dr. Jacob following -Hold oral hypoglycemics, High dose sliding scale insulin AC HS, Insulin Lantus 80 unit HS, ssi -CM for placement -PT/OT evaluation and treatment for placement planning -ppx: heparin Time Spent With Patient Time: Total time spent is greater than 50% in coordination of care (as documented) at patient's floor/unit and/or counseling patient: QUALITY VTE Deep Vein Thrombosis/Pulmonary Embolism Present on Admission: No
[2020-07-04] MEDS ORDERED: VANCOMYCIN 1,000 MG in 0.9 % SODIUM CHLORIDE 250 ML IV ONE (16:00)
[2020-07-04] MEDS: DULoxetine 30 MG CAPSULE PO SCH (21:13)
[2020-07-04] MEDS: ATORVASTATIN 20 MG TABLET PO SCH (21:13)
[2020-07-04] MEDS: INSULIN GLARGINE, HUMAN 1 UNIT/0.01 ML SQ SCH (21:14)
[2020-07-05] MEDS: PIPERACILLIN SODIUM/TAZOBACTAM 2.25 GM in DEXTROSE 5% IN WATER 50 ML IV SCH ×3 (05:32→21:22)
[2020-07-05] MEDS: 0.9 % SODIUM CHLORIDE 10 ML SYRINGE IV SCH ×4 (05:33→21:22)
[2020-07-05 07:08] LABS: Hematocrit 34.6 % (41.0-55.0); Hemoglobin 10.7 g/dL (13.5-16.5); Mean Corpuscular HGB Conc 30.9 g/dL (31.0-36.0); Mean Platelet Volume 9.4 fL (7.4-10.4); Platelet Count 259 K/mcL (140-440); RBC 3.68 M/mcL (4.50-5.90); Red Cell Distribution Width 15.1 % (11.5-14.5); WBC 11.1 K/mcL (4.5-11.0)
--- NOTE | 2020-07-05 07:19 | Internal Med Progress Note ---
SUBJECTIVE Subjective Patient information: Note initiated : 07/05/20 at 7:08 am Service Date, if different from initiated Date: [] Patient: Neftaly Poon 74 y/o M admitted on 06/30/20 for shortness of breath, lower leg edema. Chief Complaint: [] Interval history: Interval history: 07/04 Overnight: Afebrile. Been on 1L/min supplemental oxygen throughout the night. No bowel movement yet. Subjective: Denies SOB. Denies cough or wheezing. Denies fever or chills. Mild to moderate cramping abdominal pain of the LUQ and LLQ abdomen. Moderate sharp pain bilateral feet around the surgical sites. 07/05 Improved cough and shortness of breath. On room air currently. Had a good bowel movement last night relieved a lot of pressure in the abdomen. Blood culture with MSSA. Review of Systems: denies headache/fever/chills/nausea/vomiting/chest pain/cough/dyspnea/diarrhea. Otherwise see above. Constitutional Vitals: Vital Signs Temp Pulse Resp BP Pulse Ox 98.5 F 52 L 10 L 146/66 95 07/05/20 04:01 07/05/20 06:02 07/05/20 06:02 07/05/20 06:02 07/05/20 06:02 Period Temp Pulse Resp BP Sys/Matos Pulse Ox Last 24 Hr 97.7 F-98.5 F 52-70 7-18 115-171/56-153 88-96 Intake and Output 07/04/20 07/05/20 07/05/20 21:59 05:59 13:59 Intake Total 300 250 50 Output Total 500 750 Balance -200 250 -700 Weight 122.198 kg Intake & Output: Intake & Output 07/04/20 07/05/20 07/05/20 21:59 05:59 13:59 Intake Total 300 250 50 Output Total 500 750 Balance -200 250 -700 Weight 122.198 kg Intake: IV 300 50 50 Zosyn 2.25 gm In Dextrose 5% in 50 50 50 Water 50 ml @ 100 mls/hr IV Q8H [facility] Rx#:[id number] Vancomycin 1,000 mg In Sodium 250 Chloride 0.9% 250 ml @ 250 mls/ hr IV ONCE ONE Rx#:[id number] Oral 200 Output: Void Amount 500 750 Other: Meal Dinner Percent of Meal Consumed 100% Urine Appearance Clear Clear Urine Color Bright Yellow Bright Yellow Urine Odor Normal Normal Exam: General: Alert, Awake, No acute Distress Eyes/N/T: EOMI, Head/Neck: neck supple, CV: RRR, 2/6 SM, Pulm: Clear b/l, no wheezing/rhonchi/rales Abd: soft, ttp, +BS x4 Ext: no clubbing/cyanosis, 1+LLE, RLE no edema. b/l feet with dressings in place Neuro: Alert, no focal deficits, moves all extremities, Skin: warm/dry OBJ DATA Labs CBC & Chem 7: 07/05/20 05:22 07/05/20 05:22 Labs: Abnormal Lab Results 07/04/20 07/04/20 07/03/20 05:34 05:34 05:01 WBC 11.6 H RBC 3.74 L Hgb 11.0 L Hct 35.3 L RDW 15.3 H Lymph % (Auto) 7.7 L Lymph # (Auto) 0.89 L [place] # (Auto) 1.09 H Absolute Neutrophils 8.99 H Carbon Dioxide 32 H 33 H BUN 53 H 53 H Creatinine 2.7 H 3.0 H Glucose 144 H 129 H Albumin 3.1 L Globulin 4.3 H 4.0 H Albumin/Globulin Ratio 0.7 L 0.8 L 07/03/20 07/02/20 05:00 04:56 WBC RBC 3.41 L Hgb 10.1 L Hct 31.9 L RDW 15.3 H Lymph % (Auto) 8.6 L Lymph # (Auto) 0.80 L [place] # (Auto) 1.09 H Absolute Neutrophils Carbon Dioxide 31 H BUN 59 H Creatinine 2.8 H Glucose 188 H Albumin Globulin 4.2 H Albumin/Globulin Ratio 0.8 L Meds: Medications Acetaminophen (Acetaminophen 325 Mg Tablet) 650 mg PO Q6HP PRN; Protocol PRN Reason: Per Pain Protocol/Fever > 101 Last Admin: 07/04/20 21:15 Dose: 650 mg Documented by: Albuterol/Ipratropium (Ipratropium/Albuterol 3 Ml Ampul.Neb) 3 ml NEB Q4HP PRN PRN Reason: Wheezing Allopurinol (Allopurinol 100 Mg Tablet) 150 mg PO QDAY DAVID Last Admin: 07/04/20 08:54 Dose: 150 mg Documented by: Aspirin (Aspirin 81 Mg Tab.Chew) 81 mg PO DAILY [facility] Last Admin: 07/04/20 08:54 Dose: 81 mg Documented by: Atorvastatin Calcium (Atorvastatin 20 Mg Tablet) 20 mg PO [facility] Last Admin: 07/04/20 21:13 Dose: 20 mg Documented by: Clonidine HCl (Clonidine Hcl 0.1 Mg Tablet) 0.1 mg PO BID [facility] Last Admin: 07/04/20 21:14 Dose: 0.1 mg Documented by: Dextrose (Dextrose 50% 50 Ml Vial) 0 ml IV UD PRN PRN Reason: Hypoglycemia Diagnostic Test (Pha) (Accu-Chek 1 Each Strip) 1 each FS ACHS [facility] Last Admin: 07/04/20 20:52 Dose: 1 each Documented by: Docusate Sodium (Docusate Sodium 100 Mg Capsule) 100 mg PO BID [facility] Last Admin: 07/04/20 21:13 Dose: 100 mg Documented by: Duloxetine HCl (Duloxetine 30 Mg Capsule) 60 mg PO QHS [facility] Last Admin: 07/04/20 21:13 Dose: 60 mg Documented by: Fenofibrate (Fenofibrate 43 Mg Capsule) 43 mg PO DAILY [facility] Last Admin: 07/04/20 08:54 Dose: 43 mg Documented by: Ferrous Gluconate (Ferrous Gluconate 324 Mg Tablet) 324 mg PO [facility] Last Admin: 07/04/20 08:03 Dose: 324 mg Documented by: Furosemide (Furosemide 40 Mg Tablet) 40 mg PO BIDD [facility] Last Admin: 07/04/20 16:14 Dose: 40 mg Documented by: Gabapentin (Gabapentin 300 Mg Capsule) 300 mg PO TID@0800,1200,1700 [facility] Last Admin: 07/04/20 17:34 Dose: 300 mg Documented by: Gabapentin (Gabapentin 300 Mg Capsule) 600 mg PO [facility] Last Admin: 07/04/20 21:13 Dose: 600 mg Documented by: Glucose (Dextrose 31 Gm Oral.Susp) 15 gm PO PRN PRN PRN Reason: Hypoglycemia Heparin Sodium (Porcine) (Heparin 5,000 Unit/Ml Vial) 5,000 unit SQ Q12 [facility] Last Admin: 07/04/20 21:14 Dose: 5,000 unit Documented by: Piperacillin Sod/Tazobactam (Sod 2.25 gm/ Dextrose) 50 mls @ 100 mls/hr IV Q8H [facility]; Protocol Last Infusion: 07/05/20 06:27 Dose: Infused Documented by: Insulin Glargine (Insulin Glargine, Human 1 Unit/0.01 Ml) 80 unit SQ HS [facility] Last Admin: 07/04/20 21:14 Dose: 80 units Documented by: Insulin Human Lispro (Insulin Lispro 1 Unit/0.01 Ml Unit) 0 unit SQ ACHS [facility]; Protocol Last Admin: 07/04/20 21:14 Dose: 6 units Documented by: Isosorbide Mononitrate (Isosorbide Mononitrate 30 Mg Tab.Xl.24h) 30 mg PO QAM [facility] Last Admin: 07/04/20 08:54 Dose: 30 mg Documented by: Lactulose (Lactulose 20 Gm/30 Ml Oral.Mia) 10 gm PO DAILYP PRN PRN Reason: Constipation Metoprolol Succinate (Metoprolol Succinate 50 Mg Tab.Xl.24h) 75 mg PO BID [facility] Last Admin: 07/04/20 21:15 Dose: 75 mg Documented by: Morphine Sulfate (Morphine 2 Mg/Ml Vial) 2 mg IV Q4HP PRN; Protocol PRN Reason: Per Pain Protocol Last Admin: 07/03/20 07:54 Dose: 2 mg Documented by: Nitroglycerin (Nitroglycerin 0.4 Mg Tab.Subl) 0.4 mg SL Q5M PRN PRN Reason: Chest Pain Ondansetron HCl (Ondansetron 4 Mg/2 Ml Vial) 4 mg IV Q4HP PRN; Protocol PRN Reason: Nausea And Vomiting Oxybutynin Chloride (Oxybutynin Chloride 5 Mg Tab.Xl.24h) 10 mg PO QDAY [facility] Last Admin: 07/04/20 08:54 Dose: 10 mg Documented by: Pantoprazole Sodium (Pantoprazole 40 Mg Tablet) 40 mg PO BIDAC [facility] Last Admin: 07/04/20 17:34 Dose: 40 mg Documented by: Mometasone 0.1 % (Ointment) 1 dose TOPICAL QDAY PRN PRN Reason: Ear Wax Ketoconazole 120 Ml (Shampoo) 1 dose TOPICAL DAILYP PRN PRN Reason: DERMATITIS Polyethylene Glycol (Polyethylene Glycol 3350 17 Gm Packet) 17 gm PO DAILYP PRN PRN Reason: Constipation Last Admin: 07/04/20 13:31 Dose: 17 gm Documented by: Senna (Sennosides 1 Tablet) 2 tab PO HSP PRN PRN Reason: Constipation Last Admin: 07/01/20 21:43 Dose: 2 tab Documented by: Sodium Chloride (0.9 % Sodium Chloride 10 Ml Syringe) 10 ml IV Q8 [facility] Last Admin: 07/05/20 05:33 Dose: 10 ml Documented by: Spironolactone (Spironolactone 25 Mg Tablet) 25 mg PO QDAY [facility] Last Admin: 07/04/20 08:54 Dose: 25 mg Documented by: Tolterodine Tartrate (Tolterodine 2 Mg Cap.Xl.24h) 4 mg PO QDAY [facility] Last Admin: 07/04/20 08:59 Dose: 4 mg Documented by: Vancomycin HCl (Vancomycin Per Pharmacy) 1 order IV [facility]; Protocol Vitamin D (Vitamin D3 5,000 Unit Capsule) 5,000 unit PO DAILY [facility] Last Admin: 07/04/20 08:53 Dose: 5,000 unit Documented by: A/P Narrative A/P Narrative: A: *CHF (diastolic) exacerbation: -improved *acute hypoxic resp failure: 2/ above -now on room air *Bilateral feet surgical wound infection: -WC with MSSA/E coli *Bacteremia (MSSA): likely from above -no vegetations on TTE -f/u BC 07/02 neg *h/o sigmoid diverticulosis with ongoing abdominal pain: -CT abdomen pelvis w/o contrast-->no abscess, diverticulosis, or bowel perforation *T2DM w/neuropathy: *CAD w/stent: on ASA/statin/BB *h/o CVA: *CKD IV: *Anemia, chronic: *MELI on CPAP: *GERD *h/o gout: It is okay to continue allopurinol since there is no evidence of active gout P: -Lasix now 40mg PO BID, aldactone -cont BB/imdur, home clonidine -ID Dr. Champagne following, expecting 6 weeks IV therapy likely unasyn -PICC placement -Dr. Jacob following -Vancomycin(d/c)/zosyn -asa/statin -home cpap -Hold oral hypoglycemics, High dose sliding scale insulin AC HS, Insulin Lantus 80 unit HS, ssi -CM for placement -PT/OT evaluation and treatment for placement planning -ppx: heparin/home ppi Time Spent With Patient Time: Total time spent is greater than 50% in coordination of care (as documented) at patient's floor/unit and/or counseling patient: QUALITY VTE Deep Vein Thrombosis/Pulmonary Embolism Present on Admission: No
[2020-07-05 07:49] LABS: ALT/SGPT 15 U/L (<40); AST/SGOT 22 U/L (<40); Albumin 3.2 gm/dL (3.2-5.2); Albumin/Globulin Ratio 0.8 (1.0-2.3); Alkaline Phosphatase 49 U/L (39-117); Bilirubin,Direct 0.2 mg/dL (<0.3); Bilirubin,Total 0.5 mg/dL (0.1-1.0); Blood Urea Nitrogen 55 mg/dL (8-23); Calcium 10.2 mg/dL (8.6-10.4); Carbon Dioxide 30 mmol/L (22-30); Chloride 101 mmol/L (96-108); Globulin 4.2 gm/dL (2.2-3.7); Glomerular Filtration Rate 23; Glucose 168 mg/dL (70-105); Lactate Dehydrogenase 271 U/L (135-225); Phosphorous 4.5 mg/dL (2.5-4.5); Triglycerides 243 mg/dL (<150); Uric Acid 5.7 mg/dL (2.5-8.0)
[2020-07-05 08:03] LABS: Anisocytosis 1+ (None Seen); Band Neutrophils % 13 % (0-10); Eosinophils % (Manual) 6 % (0-7); Lymphocytes % 6 % (15-49); Monocytes % (Manual) 8 % (1-12); Platelet Estimate NORMAL (Normal); RBC Morphology ABNORMAL (Normal); Segmented Neutrophils % 67 % (38-78)
[2020-07-05] MEDS: FERROUS GLUCONATE 324 MG TABLET PO SCH (08:28)
[2020-07-05] MEDS: GABAPENTIN 300 MG CAPSULE PO SCH ×4 (08:28→21:20)
[2020-07-05] MEDS: METOPROLOL SUCCINATE 50 MG TAB.XL.24H PO SCH ×2 (08:28→21:21)
[2020-07-05] MEDS: OXYBUTYNIN CHLORIDE 5 MG TAB.XL.24H PO SCH (08:30)
[2020-07-05] MEDS: VITAMIN D3 5,000 UNIT CAPSULE PO SCH (08:30)
[2020-07-05] MEDS: cloNIDine HCL 0.1 MG TABLET PO SCH ×2 (08:31→21:20)
[2020-07-05] MEDS: ISOSORBIDE MONONITRATE 30 MG TAB.XL.24H PO SCH (08:31)
[2020-07-05] MEDS: PANTOPRAZOLE 40 MG TABLET PO SCH ×2 (08:31→16:53)
[2020-07-05] MEDS: FENOFIBRATE 43 MG CAPSULE PO SCH (08:31)
[2020-07-05] MEDS: DOCUSATE SODIUM 100 MG CAPSULE PO SCH ×2 (08:31→21:20)
[2020-07-05] MEDS: ASPIRIN 81 MG TAB.CHEW PO SCH (08:32)
[2020-07-05] MEDS: ALLOPURINOL 100 MG TABLET PO SCH (08:32)
[2020-07-05] MEDS: TOLTERODINE 2 MG CAP.XL.24H PO SCH (08:32)
[2020-07-05] MEDS: HEPARIN 5,000 UNIT/ML VIAL SQ SCH ×2 (08:33→21:20)
[2020-07-05] MEDS: SPIRONOLACTONE 25 MG TABLET PO SCH (08:33)
[2020-07-05] MEDS: INSULIN LISPRO 1 UNIT/0.01 ML UNIT SQ SCH ×4 (08:44→21:21)
[2020-07-05] MEDS: ACETAMINOPHEN 325 MG TABLET PO PRN (08:44)
[2020-07-05] MEDS: morphine 2 MG/ML VIAL IV PRN (09:32)
[2020-07-05] MEDS ORDERED: 0.9 % SODIUM CHLORIDE 10 ML SYRINGE IV PRN (10:35)
[2020-07-05] MEDS: FUROSEMIDE 40 MG TABLET PO SCH ×2 (11:08→16:53)
--- NOTE | 2020-07-05 12:28 | Discharge Summary ---
Discharge Provider Provider Patient information: Note initiated : 07/05/20 at 12:23 pm Service Date, if different from initiated Date: [] Patient: Neftaly Poon 74 y/o M admitted on 06/30/20 for shortness of breath, lower leg edema. Chief Complaint: [] Date of admission: 06/30/20 21:03 Discharge date: 07/06/20 Primary care physician: Morris Cavanaugh MD Consults: 07/01/20 Consult to Physician [CONS] Routine Comment: Consulting Provider: Mansoor Jacob Reason For Exam: recent feet surgery; concerning for surgical inf 07/01/20 07:25 Consult to Physician [CONS] Routine Comment: Consulting Provider: Cali Dalton Reason For Exam: Physician to Consult 07/02/20 16:48 Consult to Infectious Disease [CONS] Routine Comment: bacteremia Consulting Provider: Dorian Champagne Reason For Exam: Physician to Consult 07/05/20 11:09 Consult to Physician [CONS] Routine Comment: Consulting Provider: [facility] Reason For Exam: Physician to Consult Discharge Meds Discharge Medications Home Medications aspirin 81 mg tablet,delayed release 81 mg PO QDAY 01/13/15 [History Confirmed 06/30/20 Last Taken 06/30/20 09:00] nitroglycerin 0.4 mg sublingual tablet 0.4 mg SUBLINGUAL Q5-15MIN PRN 01/13/15 [History Confirmed 06/30/20 Last Taken 06/28/20 20:30] cholecalciferol (vitamin D3) 125 mcg (5,000 unit) capsule 5,000 unit PO QDAY 11/05/18 [History Confirmed 06/30/20 Last Taken 06/29/20 18:00] ketoconazole 2 % shampoo 1 applic TOPICAL DAILYP PRN 11/05/18 [History Confirmed 06/30/20 Last Taken 06/30/20 08:00] furosemide 80 mg tablet 80 mg PO BID 04/02/19 [History Confirmed 06/30/20 Last Taken 06/30/20 09:00] CPAP #1 ea 04/04/19 [History Confirmed 06/30/20 Last Taken Unknown] rosuvastatin 10 mg tablet 10 mg PO QHS tab 05/27/19 [History Confirmed 06/30/20 Last Taken 06/29/20 20:00] gabapentin 300 mg capsule See Rx Instructions .ROUTE .COMPLEX cap 10/01/19 [History Confirmed 06/30/20 Last Taken 06/30/20 12:00] mometasone 1 applic TOPICAL QDAY PRN 11/16/19 [History Confirmed 06/30/20 Last Taken 06/28/20] ferrous gluconate 324 mg (37.5 mg iron) tablet 324 mg PO QDAY #90 tab 12/02/19 [Rx Confirmed 06/30/20 Last Taken 06/29/20 18:00] isosorbide mononitrate 30 mg tablet,extended release 24 hr 30 mg PO QAM 12/02/19 [History Confirmed 06/30/20 Last Taken 06/30/20 09:00] metoprolol succinate 50 mg tablet,extended release 24 hr 75 mg PO BID tab 12/02/19 [History Confirmed 06/30/20 Last Taken 06/30/20 09:00] fenofibrate nanocrystallized 48 mg tablet 48 mg PO QDAY 12/03/19 [History Confirmed 06/30/20 Last Taken 06/30/20 09:00] clonidine HCl 0.1 mg tablet 0.1 mg PO BID@1800,2300 tab 12/31/19 [History Confirmed 07/01/20 Last Taken 06/29/20 23:00] insulin regular hum U-500 conc See Rx Instructions SUB-Q TIDWMEAL ml 03/27/20 [History Confirmed 06/30/20 Last Taken 06/30/20 13:00] duloxetine 60 mg capsule,delayed release sprinkle 60 mg PO QHS #30 cap 04/07/20 [Rx Confirmed 06/30/20 Last Taken 06/29/20 18:00] pantoprazole 40 mg tablet,delayed release 40 mg PO BID #60 tab 04/07/20 [Rx Confirmed 06/30/20 Last Taken 06/30/20 09:00] spironolactone 25 mg tablet 25 mg PO QDAY #30 tab 04/30/20 [Rx Confirmed 06/30/20 Last Taken 06/30/20 09:00] tolterodine 4 mg capsule,extended release 24 hr 4 mg PO QDAY 180 Days #180 cap 05/01/20 [Rx Confirmed 06/30/20 Last Taken Unknown] oxybutynin chloride 5 mg tablet,extended release 24 hr 10 mg PO QDAY #60 tab 05/11/20 [Rx Confirmed 06/30/20 Last Taken 06/30/20 09:00] allopurinol 100 mg tablet 150 mg PO QDAY #135 tab 06/29/20 [Rx Confirmed 06/30/20 Last Taken 06/30/20 09:00] colchicine 0.3 mg PO QDAY 06/30/20 [History Confirmed 06/30/20 Last Taken Unknown] ampicillin-sulbactam [Unasyn] 1.5 g IV Q8H #1 ea 07/06/20 [Rx Last Taken Unknown] COURSE Hospital Course Hospital course: Interval history: 07/04 Overnight: Afebrile. Been on 1L/min supplemental oxygen throughout the night. No bowel movement yet. Subjective: Denies SOB. Denies cough or wheezing. Denies fever or chills. Mild to moderate cramping abdominal pain of the LUQ and LLQ abdomen. Moderate sharp pain bilateral feet around the surgical sites. 07/05 Improved cough and shortness of breath. On room air currently. Had a good bowel movement last night relieved a lot of pressure in the abdomen. Blood culture with MSSA. 07/06 Doing well. No overnight issues or new complaints. Final antibiotic regimen per Dr. Champagne's 1.5 g of Unasyn every 8. A: *CHF (diastolic) exacerbation: *acute hypoxic resp failure: 2/2 above *Bilateral feet surgical wound infection: -WC with MSSA/E coli *Bacteremia (MSSA): likely from above -no vegetations on TTE -f/u BC 07/02 neg *h/o sigmoid diverticulosis with ongoing abdominal pain: -CT abdomen pelvis w/o contrast-->no abscess, diverticulosis, or bowel perforation *T2DM w/neuropathy: *CAD w/stent: on ASA/statin/BB *h/o CVA: *CKD IV: *Anemia, chronic: *MELI on CPAP: *GERD Discharge diagnosis: CHF foot infection bacteremia Secondary discharge diagnosis: Diabetes coronary disease history of stroke chronic kidney disease chronic anemia obstructive sleep apnea GERD Time Spent with Patient Time attestation: Total time spent providing and/or coordinating discharge services: Time spent: Greater than 30 minutes EXAM Constitutional Vitals: Temp Pulse Resp BP Pulse Ox 97.7 F 52 L 23 H 154/82 97 07/05/20 07:59 07/05/20 06:02 07/05/20 09:03 07/05/20 09:03 07/05/20 09:03 Discharge Data Data Completed and Pending Labs on day of discharge: Labs from last 24 hours 07/05/20 07/05/20 07/04/20 05:22 05:22 14:06 WBC 11.1 H RBC 3.68 L Hgb 10.7 L Hct 34.6 L MCV 94.0 MCH 29.1 MCHC 30.9 L RDW 15.1 H Plt Count 259 MPV 9.4 Seg Neutrophils % 67 Band Neutrophils % 13 H Lymphocytes % 6 L Monocytes % (Manual) 8 Eosinophils % (Manual) 6 Platelet Estimate Normal RBC Morphology Abnormal A Anisocytosis 1+ A Sodium 140 Potassium 4.7 Chloride 101 Carbon Dioxide 30 Anion Gap 9.0 BUN 55 H Creatinine 2.6 H GFR Calculation 23 Glucose 168 H Uric Acid 5.7 Calcium 10.2 Phosphorus 4.5 Magnesium 2.4 Total Bilirubin 0.5 Direct Bilirubin 0.2 GGT 29 AST 22 ALT 15 Alkaline Phosphatase 49 Lactate Dehydrogenase 271 H Total Protein 7.4 Albumin 3.2 Globulin 4.2 H Albumin/Globulin Ratio 0.8 L Triglycerides 243 H Vancomycin Trough 14.0 Preliminary micro results at discharge 07/02/20 10:43 Blood Culture - Preliminary Blood 07/02/20 10:33 Blood Culture - Preliminary Blood 06/30/20 20:10 Blood Culture - Preliminary Blood Staphylococcus aureus 06/30/20 20:38 Blood Culture - Preliminary Blood Staphylococcus aureus 06/30/20 19:50 Gram Stain - Preliminary Foot - Left Wound Culture - Preliminary Staphylococcus aureus Escherichia coli Discharge Plan Patient/Caregiver Discharge Instructions Activity: increase activity as tolerated Diet: Consistent Carbohydrate Instructions: Heart Failure (ED) Activity Restrictions/Additional Instructions: weekly cbc/cmp per Dr. Champagne, send results to his office. PICC line care until IV abx finish on 08/10/2020 Follow-up with your corporate buyer in 3 to 10 days Prescriptions: New ampicillin-sulbactam [Unasyn] 1.5 gram recon soln 1.5 g IV Q8H Qty: 1 RF: 0 Continued fenofibrate nanocrystallized 48 mg tablet 48 mg PO QDAY RF: 0 Humulin R U-500 (Conc) Kwikpen 500 unit/mL (3 mL) insulin pen See Rx Instructions SUB-Q TIDWMEAL RF: 0 pantoprazole [Protonix] 40 mg tablet,delayed release (DR/EC) 40 mg PO BID Qty: 60 RF: 3 duloxetine 60 mg capsule, delayed rel sprinkle 60 mg PO QHS Qty: 30 RF: 3 spironolactone 25 mg tablet 25 mg PO QDAY Qty: 30 RF: 4 oxybutynin chloride 5 mg tablet extended release 24hr 10 mg PO QDAY Qty: 60 RF: 4 allopurinol 100 mg tablet 150 mg PO QDAY Qty: 135 RF: 3 furosemide 80 mg tablet 80 mg PO BID RF: 0 rosuvastatin 10 mg tablet 10 mg PO QHS RF: 0 clonidine HCl 0.1 mg tablet 0.1 mg PO BID@1800,2300 RF: 0 metoprolol succinate 50 mg tablet extended release 24 hr 75 mg PO BID RF: 0 isosorbide mononitrate 30 mg tablet extended release 24 hr 30 mg PO QAM RF: 0 ferrous gluconate 324 mg (37.5 mg iron) tablet 324 mg PO QDAY Qty: 90 RF: 4 ketoconazole 120 ML shampoo 1 applic topical DAILYP PRN (Reason: DERMATITIS?) RF: 0 cholecalciferol (vitamin D3) 5,000 unit capsule 5,000 unit PO QDAY RF: 0 (DME) CPAP Qty: 1 RF: 0 gabapentin 300 mg capsule See Rx Instructions .ROUTE .COMPLEX RF: 0 mometasone 0.1 % Ointment 1 applic TOPICAL QDAY PRN (Reason: Ear Wax) RF: 0 colchicine 0.6 mg Tablet 0.3 mg PO QDAY RF: 0 aspirin 81 mg tablet,delayed release (DR/EC) 81 mg PO QDAY RF: 0 nitroglycerin 0.4 mg tablet, sublingual 0.4 mg SUBLINGUAL Q5-15MIN PRN (Reason: Chest Pain) RF: 0 tolterodine [Detrol LA] 4 mg capsule,extended release 24hr 4 mg PO QDAY 180 Days Qty: 180 RF: 0 Discontinued cephalexin 500 mg Capsule 1,000 mg PO BID RF: 0 Follow Up Plan Follow up with: Mansoor Jacob DPM [Physician] - Morris Cavanaugh MD [Primary Care Provider] - Dorian Champagne MD [Physician] - Patient Disposition: Xfer SNF Prognosis: Fair Rehab Potential: Fair I certify that the patient requires SNF services: Yes Overall status at discharge: patient is progressing back to baseline Discharge Orders: Discharge Order (Routine); Ordered 07/06/20 Ordered By: Jayson Restrepo [facility] VTE Deep Vein Thrombosis/Pulmonary Embolism Present on Admission: No
--- NOTE | 2020-07-05 13:26 | General Surgery Progress Note ---
SUBJECTIVE Subjective Patient information: Note initiated : 07/05/20 at 1:14 pm Service Date, if different from initiated Date: [] Patient: Neftaly Poon 74 y/o M admitted on 06/30/20 for shortness of breath, lower leg edema. Chief Complaint: [] Additional PMFSH (Level 3 Only): Patient seen along with Jill DOBBS, on behalf f Dr. Jacob, [employer] ( [facility] ) Reviewed his admission and subsequent progress notes from EHR. Constitutional Vitals: Vital Signs Temp Pulse Resp BP Pulse Ox 98.7 F 52 L 20 138/85 93 07/05/20 11:00 07/05/20 06:02 07/05/20 11:00 07/05/20 11:00 07/05/20 11:00 Period Temp Pulse Resp BP Sys/Matos Pulse Ox Last 24 Hr 97.7 F-98.7 F 52-70 7-23 115-171/56-153 88-98 Intake and Output 07/04/20 07/05/20 07/05/20 21:59 05:59 13:59 Intake Total 300 250 50 Output Total 500 750 Balance -200 250 -700 Weight 269 lb 6.4 oz Intake & Output: Intake & Output 07/04/20 07/05/20 07/05/20 21:59 05:59 13:59 Intake Total 300 250 50 Output Total 500 750 Balance -200 250 -700 Weight 269 lb 6.4 oz Intake: IV 300 50 50 Zosyn 2.25 gm In Dextrose 5% in 50 50 50 Water 50 ml @ 100 mls/hr IV Q8H [facility] Rx#:[id number] Vancomycin 1,000 mg In Sodium 250 Chloride 0.9% 250 ml @ 250 mls/ hr IV ONCE ONE Rx#:[id number] Oral 200 Output: Void Amount 500 750 Other: Meal Dinner Breakfast Percent of Meal Consumed 100% 100% Feeding Ability Independent Urine Appearance Clear Clear Urine Color Bright Yellow Bright Yellow Urine Odor Normal Normal Exam: Patient OOB in wheel chair, Afebrile, O2 satis above 95. On supplemental O2. NOT tachycardic. Speaking in full sentences. Examined both feet wounds and legs. Sharp ridged toe nails both feet. Negative for onychomycosis. Ruptured blister with denuded epidermal tissue dorsal LEFT fore foot. Moisture associated dermatitis between toes of left foot. Chronic open wounds anterior plantar both feet s/p callus debridement. Peripheral neuropathy. CSSSI improving. Responding to local wound care and IV Vancomycin and Zosyn. A/P Narrative A/P Narrative: Assessment: CHF improving Moisture dermatitis of Left foot, improving. Blistered skin with denuded epidermis. NEGATIVE for cellulitis . No crepitation. NO odor. NO purulence Plan: Conservative local wound care as discussed at bedside with patient, nurse and family. Clean with Betadine swab, apply Kerlix gauze between toes, secure with Kerlix bandage Protective rupali boots both feet, ankle and legs. Will d/w Dr. Jacob about continuation of f/u tomorrow. Time Spent With Patient Time: Total time spent is greater than 50% in coordination of care (as documented) at patient's floor/unit and/or counseling patient: Total time spent with greater than 50% in coordination of care (as documented) at patient's floor/unit and/or counseling patient:: 25 - 35 minutes
[2020-07-05] MEDS: ATORVASTATIN 20 MG TABLET PO SCH (21:20)
[2020-07-05] MEDS: INSULIN GLARGINE, HUMAN 1 UNIT/0.01 ML SQ SCH (21:21)
[2020-07-05] MEDS: DULoxetine 30 MG CAPSULE PO SCH (21:48)
[2020-07-06] MEDS: PIPERACILLIN SODIUM/TAZOBACTAM 2.25 GM in DEXTROSE 5% IN WATER 50 ML IV SCH ×2 (05:35→12:43)
[2020-07-06] MEDS: 0.9 % SODIUM CHLORIDE 10 ML SYRINGE IV SCH ×3 (05:35→13:04)
--- NOTE | 2020-07-06 06:36 | Infectious Disease Consult ---
HPI Data of Consult Primary Care Provider: Morris Cavanaugh MD Consult Narrative Patient Information: Note initiated : 07/06/20 at 6:29 am Service Date, if different from initiated Date: [] Patient: Neftaly Poon 74 y/o M admitted on 06/30/20 for shortness of breath, lower leg edema. Chief Complaint: [] Neftaly is a 74-year-old diabetic with chronic kidney disease stage IV. He is currently hospital day 7 on IV Zosyn for significant left foot infection. He had bacteremia with MSSA. Follow-up blood cultures on July 02 are no growth. He currently reports his left foot pain at 7 out of 10. He is maintained on IV Zosyn. He has a right peripheral line and will need a PICC line. He is planning to go to [facility] facility. cc:: CC: Cali Dalton MD [facility] All Active Problems (Updated 07/06/20 @ 06:36 by Dorian Champagne MD) Bacteremia (Acute) Sigmoid diverticulosis (Acute) Surgical wound infection (Acute) Acute on chronic congestive heart failure (Acute) Hypoxia (Acute) Chest pain (Acute) History of cholecystectomy (Chronic) Morbid obesity due to excess calories (Chronic) H/O aortic valve replacement (Chronic) 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) CKD (chronic kidney disease) stage 4, GFR 15-29 ml/min (Chronic) Localized edema due to fluid overload (Chronic) TIA (transient ischemic attack) (Acute) Dysphagia (Chronic) History of tobacco use (Chronic) Facial paresthesia (Acute) Paresthesia of left foot (Acute) Stroke (Chronic) Paroxysmal atrial fibrillation (Chronic) Chronic diastolic heart failure (Chronic) Hypertensive heart disease with heart failure (Chronic) Aortic valve disorder (Chronic) MELI (obstructive sleep apnea) (Chronic) Dermatofibroma of lower leg (Chronic) Plantar warts (Chronic) Dyspnea (Chronic) Esophageal stricture (Chronic) retirement (current) use of aspirin (Chronic) 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) Thoracic back pain (Chronic) Pure hypercholesterolemia (Chronic) Male urinary stress incontinence (Chronic) Incontinence (Chronic) Depression (Chronic) Asthma (Chronic) Obstructive nephropathy (Chronic) Insomnia (Chronic) BPH with urinary obstruction (Chronic) Vitamin D deficiency (Chronic) Overactive bladder (Chronic) Gastroesophageal reflux (Chronic) Cervicalgia (Chronic) Benign prostatic hyperplasia with lower urinary tract symptoms (Chronic 10/16/13) Medical History (Updated 07/06/20 @ 06:36 by Dorian Champagne MD) Acute kidney injury superimposed on CKD Acute on chronic renal failure Acute renal failure Anemia Aortic valve disorder Asthma Atypical chest pain Benign paroxysmal positional vertigo Benign prostatic hyperplasia with lower urinary tract symptoms (10/16/13) Trial of 2 to 3 days off of tamsulosin and if no change in voiding pattern stay off of it Bicuspid aortic valve history of BPH with urinary obstruction Cervicalgia Chest heaviness Cholelithiasis Chronic diastolic heart failure Constipation Depression Dermatofibroma of lower leg Diabetes mellitus with neuropathy Comorbid risk factor. Dysphagia Dyspnea Esophageal stricture Gastroesophageal reflux Generalized abdominal pain GI bleed History of coronary angiogram 11/2013 and 02/02/2015 per patient. 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 Obstructive nephropathy MELI (obstructive sleep apnea) Overactive bladder Paroxysmal atrial fibrillation Plantar fasciitis of right foot Plantar wart Plantar warts PNA (pneumonia) Pure hypercholesterolemia Right-sided chest pain Stroke Thoracic back pain Vitamin D deficiency Wheezing Surgical History (Updated 07/06/20 @ 06:35 by Dorian Champagne MD) H/O aortic valve replacement Initial bacteremia has cleared. H/O aortic valve replacement with porcine valve (02/23/15) History of cataract surgery (~2014) History of cholecystectomy History of repair of hiatal hernia (~1990) Stents 1994, 2004, 1990, 2012 History of surgery Bone spur fascitis release right foot History of surgery Removed tarsal nerve History of transurethral resection of prostate (~2015) Hx of colonoscopy (04/27/16) 2001 Hx of foot surgery right Hx of shoulder surgery 2003 right, left in 1973 Hx of tonsillectomy (~1960) Status post right foot surgery (07/17/08) bone spur and plantar fasciitis release, removal of tarsal nerve Family History none listed Depression Type 2 diabetes mellitus Hypercholesterolemia Hypertension Acute myocardial infarction Father , age 88 H/O heart bypass surgery Depression Type 2 diabetes mellitus Hypercholesterolemia Hypertension Acute myocardial infarction High cholesterol Mother , age 84 Heart disease History of angina Hypertension High cholesterol History of diabetes mellitus Depression Social History marital status: occupational status: retired physical activity: other details: Regular routine smoking status: Former smoker smoking status stop date: 03/13/83 alcohol intake frequency: a few times a week substance use type: does not use MEDS/ALLERGIES Home Medications and Allergies Home Medications Medication Instructions Recorded Confirmed Type aspirin 81 mg tablet,delayed 81 mg PO QDAY 01/13/15 06/30/20 History release nitroglycerin 0.4 mg sublingual 0.4 mg SUBLINGUAL Q5-15MIN PRN 01/13/15 06/30/20 History tablet cholecalciferol (vitamin D3) 125 5,000 unit PO QDAY 11/05/18 06/30/20 History mcg (5,000 unit) capsule ketoconazole 2 % shampoo 1 applic TOPICAL DAILYP PRN 11/05/18 06/30/20 History furosemide 80 mg tablet 80 mg PO BID 04/02/19 06/30/20 History CPAP #1 ea 04/04/19 06/30/20 History rosuvastatin 10 mg tablet 10 mg PO QHS tab 05/27/19 06/30/20 History gabapentin 300 mg capsule See Rx Instructions .ROUTE 10/01/19 06/30/20 History .COMPLEX cap mometasone 1 applic TOPICAL QDAY PRN 11/16/19 06/30/20 History ferrous gluconate 324 mg (37.5 mg 324 mg PO QDAY #90 tab 12/02/19 06/30/20 Rx iron) tablet isosorbide mononitrate 30 mg 30 mg PO QAM 12/02/19 06/30/20 History tablet,extended release 24 hr metoprolol succinate 50 mg 75 mg PO BID tab 12/02/19 06/30/20 History tablet,extended release 24 hr fenofibrate nanocrystallized 48 mg 48 mg PO QDAY 12/03/19 06/30/20 History tablet clonidine HCl 0.1 mg tablet 0.1 mg PO BID@1800,2300 tab 12/31/19 07/01/20 History insulin regular hum U-500 conc See Rx Instructions SUB-Q TIDWMEAL 03/27/20 06/30/20 History ml duloxetine 60 mg capsule,delayed 60 mg PO QHS #30 cap 04/07/20 06/30/20 Rx release sprinkle pantoprazole 40 mg tablet,delayed 40 mg PO BID #60 tab 04/07/20 06/30/20 Rx release spironolactone 25 mg tablet 25 mg PO QDAY #30 tab 04/30/20 06/30/20 Rx tolterodine 4 mg capsule,extended 4 mg PO QDAY 180 Days #180 cap 05/01/20 06/30/20 Rx release 24 hr oxybutynin chloride 5 mg 10 mg PO QDAY #60 tab 05/11/20 06/30/20 Rx tablet,extended release 24 hr allopurinol 100 mg tablet 150 mg PO QDAY #135 tab 06/29/20 06/30/20 Rx colchicine 0.3 mg PO QDAY 06/30/20 06/30/20 History ampicillin-sulbactam [Unasyn] 3 g IV Q6H #1 ea 07/05/20 Rx Allergies Allergy/AdvReac Type Severity Reaction Status Date / Time clopidogrel [From PLAVIX] Allergy Mild HIVES Verified 06/30/20 15:41 indomethacin AdvReac Intermediate Severe Verified 07/01/20 06:35 Edema niacin [NIACIN] AdvReac Mild RASH, Verified 06/30/20 15:41 HIVES WITH HIGH DOSES prasugrel [From Effient] AdvReac Mild Nose Bleed Verified 06/30/20 21:30 Physical Examination Vital Signs Vital signs: Temp Pulse Resp BP Pulse Ox 97.8 F 63 20 145/68 92 07/06/20 04:01 07/06/20 06:00 07/05/20 11:00 07/06/20 04:01 07/06/20 06:00 Additional Exam Additional exam: General: No acute distress laying in bed. CPAP machine is off. HEENT: Mouth is dry. No lip ulcerations. Lungs are clear bilaterally. Heart: Regular rate and rhythm with 2/6 systolic murmur auscultated medially. Abdomen: Obese soft mild left upper quadrant tenderness no rebound. Extremities: Mild left ankle erythema. Mild left dorsal foot erythema. Left third toe decreased swelling decreased redness. Improving. Skin is peeling. Results Laboratory Findings CBC and BMP: 07/05/20 05:22 07/05/20 05:22 Abnormal lab findings: Abnormal Labs 06/30/20 06/30/20 06/30/20 15:49 15:49 15:49 WBC RBC 3.52 L Hgb 10.3 L Hct 33.0 L MCHC RDW 15.0 H MPV 10.7 H Neut % (Auto) 79.6 H Lymph % (Auto) 5.6 L [place] % (Auto) 12.2 H Lymph # (Auto) 0.49 L [place] # (Auto) 1.07 H Band Neutrophils % Lymphocytes % Absolute Neutrophils RBC Morphology Anisocytosis Carbon Dioxide BUN 71 H Creatinine 3.7 H Glucose 279 H Hemoglobin A1c Lactate Dehydrogenase Troponin T 0.04 H* NT-Pro-B Natriuret Pep 36110.0 H Albumin Globulin 3.9 H Albumin/Globulin Ratio 0.8 L Triglycerides Procalcitonin Urine Appearance Urine Protein Urine Urobilinogen Amorphous Crystals Urine Mucus 06/30/20 06/30/20 06/30/20 18:32 20:10 21:39 WBC RBC Hgb Hct MCHC RDW MPV Neut % (Auto) Lymph % (Auto) [place] % (Auto) Lymph # (Auto) [place] # (Auto) Band Neutrophils % Lymphocytes % Absolute Neutrophils RBC Morphology Anisocytosis Carbon Dioxide BUN 71 H Creatinine 3.6 H Glucose 228 H Hemoglobin A1c 7.6 H Lactate Dehydrogenase Troponin T NT-Pro-B Natriuret Pep Albumin Globulin 3.9 H Albumin/Globulin Ratio 0.8 L Triglycerides Procalcitonin 0.41 H Urine Appearance Hazy A Urine Protein 30 A Urine Urobilinogen 2.0 A Amorphous Crystals Few A Urine Mucus Few A 06/30/20 07/01/20 07/01/20 21:39 03:22 03:37 WBC RBC Hgb Hct MCHC RDW MPV Neut % (Auto) Lymph % (Auto) [place] % (Auto) Lymph # (Auto) [place] # (Auto) Band Neutrophils % Lymphocytes % Absolute Neutrophils RBC Morphology Anisocytosis Carbon Dioxide BUN 68 H Creatinine 3.9 H Glucose 249 H Hemoglobin A1c Lactate Dehydrogenase Troponin T 0.03 H 0.04 H* NT-Pro-B Natriuret Pep Albumin 3.1 L Globulin Albumin/Globulin Ratio 0.9 L Triglycerides Procalcitonin Urine Appearance Urine Protein Urine Urobilinogen Amorphous Crystals Urine Mucus 07/01/20 07/01/20 07/02/20 03:38 13:19 04:56 WBC RBC 3.27 L Hgb 9.7 L Hct 30.7 L MCHC RDW 15.2 H MPV Neut % (Auto) 80.6 H Lymph % (Auto) 4.0 L [place] % (Auto) 12.6 H Lymph # (Auto) 0.36 L [place] # (Auto) 1.12 H Band Neutrophils % Lymphocytes % Absolute Neutrophils RBC Morphology Anisocytosis Carbon Dioxide 31 H BUN 59 H Creatinine 2.8 H Glucose 188 H Hemoglobin A1c Lactate Dehydrogenase Troponin T 0.04 H* NT-Pro-B Natriuret Pep Albumin Globulin 4.2 H Albumin/Globulin Ratio 0.8 L Triglycerides Procalcitonin Urine Appearance Urine Protein Urine Urobilinogen Amorphous Crystals Urine Mucus 07/02/20 07/03/20 07/03/20 04:57 05:00 05:01 WBC RBC 3.53 L 3.41 L Hgb 10.4 L 10.1 L Hct 33.0 L 31.9 L MCHC RDW 15.5 H 15.3 H MPV Neut % (Auto) 79.6 H Lymph % (Auto) 5.3 L 8.6 L [place] % (Auto) Lymph # (Auto) 0.50 L 0.80 L [place] # (Auto) 1.13 H 1.09 H Band Neutrophils % Lymphocytes % Absolute Neutrophils RBC Morphology Anisocytosis Carbon Dioxide 33 H BUN 53 H Creatinine 3.0 H Glucose 129 H Hemoglobin A1c Lactate Dehydrogenase Troponin T NT-Pro-B Natriuret Pep Albumin 3.1 L Globulin 4.0 H Albumin/Globulin Ratio 0.8 L Triglycerides Procalcitonin Urine Appearance Urine Protein Urine Urobilinogen Amorphous Crystals Urine Mucus 07/04/20 07/04/20 07/05/20 05:34 05:34 05:22 WBC 11.6 H 11.1 H RBC 3.74 L 3.68 L Hgb 11.0 L 10.7 L Hct 35.3 L 34.6 L MCHC 30.9 L RDW 15.3 H 15.1 H MPV Neut % (Auto) Lymph % (Auto) 7.7 L [place] % (Auto) Lymph # (Auto) 0.89 L [place] # (Auto) 1.09 H Band Neutrophils % 13 H Lymphocytes % 6 L Absolute Neutrophils 8.99 H RBC Morphology Abnormal A Anisocytosis 1+ A Carbon Dioxide 32 H BUN 53 H Creatinine 2.7 H Glucose 144 H Hemoglobin A1c Lactate Dehydrogenase Troponin T NT-Pro-B Natriuret Pep Albumin Globulin 4.3 H Albumin/Globulin Ratio 0.7 L Triglycerides Procalcitonin Urine Appearance Urine Protein Urine Urobilinogen Amorphous Crystals Urine Mucus 07/05/20 05:22 WBC RBC Hgb Hct MCHC RDW MPV Neut % (Auto) Lymph % (Auto) [place] % (Auto) Lymph # (Auto) [place] # (Auto) Band Neutrophils % Lymphocytes % Absolute Neutrophils RBC Morphology Anisocytosis Carbon Dioxide BUN 55 H Creatinine 2.6 H Glucose 168 H Hemoglobin A1c Lactate Dehydrogenase 271 H Troponin T NT-Pro-B Natriuret Pep Albumin Globulin 4.2 H Albumin/Globulin Ratio 0.8 L Triglycerides 243 H Procalcitonin Urine Appearance Urine Protein Urine Urobilinogen Amorphous Crystals Urine Mucus Microbiology: Microbiology 07/02/20 10:43 Blood Blood Culture - Preliminary 07/02/20 10:33 Blood Blood Culture - Preliminary 06/30/20 20:10 Blood Blood Culture - Preliminary Staphylococcus aureus 06/30/20 20:38 Blood Blood Culture - Preliminary Staphylococcus aureus 06/30/20 19:50 Foot - Left Gram Stain - Preliminary 06/30/20 19:50 Foot - Left Wound Culture - Preliminary Staphylococcus aureus Escherichia coli Left foot culture on June 30 grew staph aureus sensitivities yet to be determined and E. coli sensitivities to be determined. Blood cultures from June 30 did grow MSSA. July 02 blood cultures no growth to date. July 05 H&H white count 11.1 platelet count 259 creatinine 2.6 glucose 168 A/P Assessment and plan (1) Bacteremia: Status: Acute Comment: Neftaly is a 74-year-old obese diabetic with chronic kidney disease. He is currently day 7 IV Zosyn. Admit blood cultures were positive for MSSA. He remains on IV Zosyn for polymicrobial infection of the left foot. Follow-up surveillance blood cultures negative. (2) Surgical wound infection: Status: Acute Comment: Left foot deep cellulitis. Anticipating 5 weeks of IV Unasyn. Dose 1.5 g IV every 8 hours. PICC line to be placed. It is odd that foot cultures for staph aureus and E. coli sensitivities are not finalized. Need to make sure that E. coli is susceptible to Unasyn (3) Morbid obesity due to excess calories: Status: Chronic Comment: Comorbid risk factor. (4) H/O aortic valve replacement: Status: Chronic Comment: Initial bacteremia has cleared. (5) Diabetes mellitus with neuropathy: Status: Chronic Comment: Comorbid risk factor. 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 Follow-up to clinic in 2 weeks. I am anticipating 5 more weeks of Unasyn. Check weekly labs to include CBC CMP sed rate and CRP. Copies to Dr. Morris Cavanaugh also. Time Spent With Patient Time: Total time spent is greater than 50% in coordination of care (as documented) at patient's floor/unit and/or counseling patient:
[2020-07-06] MEDS: PANTOPRAZOLE 40 MG TABLET PO SCH (06:44)
[2020-07-06] MEDS: morphine 2 MG/ML VIAL IV PRN (07:50)
[2020-07-06] MEDS: INSULIN LISPRO 1 UNIT/0.01 ML UNIT SQ SCH ×2 (09:43→12:30)
[2020-07-06] MEDS: HEPARIN 5,000 UNIT/ML VIAL SQ SCH (09:43)
[2020-07-06] MEDS: DOCUSATE SODIUM 100 MG CAPSULE PO SCH (09:49)
[2020-07-06] MEDS: cloNIDine HCL 0.1 MG TABLET PO SCH (09:49)
[2020-07-06] MEDS: ALLOPURINOL 100 MG TABLET PO SCH (09:49)
[2020-07-06] MEDS: FERROUS GLUCONATE 324 MG TABLET PO SCH (09:49)
[2020-07-06] MEDS: FUROSEMIDE 40 MG TABLET PO SCH (09:49)
[2020-07-06] MEDS: SPIRONOLACTONE 25 MG TABLET PO SCH (09:49)
[2020-07-06] MEDS: ASPIRIN 81 MG TAB.CHEW PO SCH (09:49)
[2020-07-06] MEDS: GABAPENTIN 300 MG CAPSULE PO SCH ×2 (09:50→12:43)
[2020-07-06] MEDS: FENOFIBRATE 43 MG CAPSULE PO SCH (09:50)
[2020-07-06] MEDS: OXYBUTYNIN CHLORIDE 5 MG TAB.XL.24H PO SCH (09:50)
[2020-07-06] MEDS: VITAMIN D3 5,000 UNIT CAPSULE PO SCH (09:50)
[2020-07-06] MEDS: METOPROLOL SUCCINATE 50 MG TAB.XL.24H PO SCH (09:50)
[2020-07-06] MEDS: ISOSORBIDE MONONITRATE 30 MG TAB.XL.24H PO SCH (09:51)
[2020-07-06] MEDS: TOLTERODINE 2 MG CAP.XL.24H PO SCH (09:55)
--- NOTE | 2020-07-06 10:39 | XRay Report ---
CLINICAL INFORMATION: PICC PLACEMENT COMPARISON: 06/30/2020 FINDINGS: No PICC line evident on the film. Mild cardiomegaly is unchanged. Mediastinum and pulmonary vessels are normal. Minor left basilar atelectasis noted. No effusions. IMPRESSION: No PICC line evident. Mild stable cardiomegaly. No acute disease Interpreted and Authenticated by: Johnie Lawson 07/06/20
--- NOTE | 2020-07-06 13:33 | XRay Report ---
CLINICAL INFORMATION: PICC placement COMPARISON: 07/07/1999 2100 hours FINDINGS: Left PICC line tip overlies the SVC right atrial junction. Heart is mildly enlarged, but unchanged. Mediastinum and pulmonary vessels are normal. Lungs are clear. No effusions. IMPRESSION: Left PICC line tip overlying the SVC right atrial junction. No acute disease Interpreted and Authenticated by: Johnie Lawson 07/06/20
== END 2020-07-06 13:45 | DRG 291 ==
LOC: ED 15:35 → ICU 21:03
PROVIDERS: ADMIT Internal Medicine; ATTEND Internal Medicine